=== PATIENT | male | born 1960 | race Caucasian/White ===

== ENCOUNTER → 2017-02-03 | Outpatient (CLI) | payer MEDICARE, OTHER ==
--- NOTE | 2017-02-04 09:09 | MR ---
EXAMINATION TYPE: MR brain wo/w con DATE OF EXAM: 02/03/2017 9:11 PM COMPARISON: NONE HISTORY: Seizure, dizziness CONTRAST: Patient received 20 mL intravenous MultiHance gadolinium contrast. Multiplanar and multispin-echo imaging of the brain was performed . Pre and post contrast enhanced i mages are obtained. The ventricles, basal cisterns and sulci overlying the cerebral convexities are mildly enlarged. There is evidence of mild periventricular white matter ischemic demyelination. Remote deep white matter insults are also noted. Focal nonspecific white matter lesion subcortical hi gh left frontal lobe measures 1.1 cm. No additional white matter lesions seen with certainty. No acut e edema is seen on diffusion weighted imaging. There is no evidence for midline shift or mass effect. Acute intracranial hemorrhage or extra-axial collection is not evident. No enhancing lesions are seen. Mild chronic ethmoidal sinusitis. Hyperintense lesion in the right-sided mastoid air cells on T1 and T2-weighted imaging which appears to not enhance on postcontrast enhanced images and measures 1.7 cm. This lesion is nonspecific and further evaluation with resolution temporal CT is advised. Graft ther e is a hyperintense lesion of the left parotid gland measuring 2.1 cm which is partially imaged. Taco tional smaller lesion of the right parotid gland. CT of the neck is advised. IMPRESSION: 1. Age-related atrophic and chronic small vessel ischemic change. No acute intracranial process at this time. No enhancing lesions are seen. 2. Nonspecific partially imaged parotid lesions. The contrast-enhanced CT of the neck is advised. 3. Focal lesion right-sided mastoid air cells may reflect changes of mastoiditis. Cholesteatoma not e xcluded. High-resolution CT of the temporal bones is advised.
== END | disposition home or self-care (01) ==
LOC: RADMRIMAIN 20:30
PROVIDERS: ATTEND Psychiatry & Neurology Neurology
DX: G31.9 Degenerative disease of nervous system, unspecified (principal); I67.82 Cerebral ischemia; G40.909 Epilepsy, unspecified, not intractable, without status epilepticus
CPT/HCPCS: 70553; A9577

== ENCOUNTER → 2017-03-01 | Outpatient (CLI) | payer MEDICARE, OTHER ==
[2017-03-01 13:40] LABS: Blood Urea Nitrogen 31 mg/dL (9-20); Non-African American GFR(MDRD) >60 (>60 ml/min/1.73 sqM)
--- NOTE | 2017-03-01 14:24 | CT ---
EXAMINATION TYPE: CT neck chest w con DATE OF EXAM: 03/01/2017 COMPARISON: NONE HISTORY: Family history of lung CA, pt is a smoker parotid lesion partially imaged on the left CT DLP: 1072.6 mGycm CONTRAST: CT scan of the neck is performed with IV Contrast, patient injected with 100 mL of Omnipaque 300. Contrast enhanced CT of the neck was performed from the skull base through the lung apices. AIRWAY: The supraglottic, glottic, and subglottic portions of the airway appear patent and free of mass. SALIVARY GLANDS: Within the superficial lobe of the left parotid gland there is a predominantly cysti c although a minimally solid mass of the left parotid gland. No additional parotid lesions are seen. Differential diagnostic possibilities: Pleomorphic adenoma as well as malignant lesions of the paroti d gland. Tissue diagnosis is recommended. The submandibular bones are unremarkable. THYROID GLAND: No nodules or masses seen. LYMPH NODES: No adenopathy seen greater than 1cm. LUNG APICES: No nodule or mass is seen. OTHER: Vascular structures are patent. No significant degenerative change of the cervical spine. N o abscess seen. IMPRESSION: 1. 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 EXAMINATION TYPE: CT neck chest w con DATE OF EXAM: 03/01/2017 COMPARISON: NONE HISTORY: Family history of lung CA, pt is a smoker CT DLP: 1072.6 mGycm Automated exposure control for dose reduction was used. CONTRAST: CT scan of the chest is performed with IV Contrast, patient injected with 100 mL of Omnipaque 300. FINDINGS: LUNGS: The lungs are grossly clear, there is no concerning parenchymal mass or nodule identified. T here is no pleural effusion or pneumothorax seen. The tracheobronchial tree is patent. MEDIASTINUM: There are no greater than 1 cm hilar or mediastinal lymph nodes. No pericardial effusi on is seen. Thoracic aorta is of normal caliber. The heart is not enlarged. UPPER ABDOMEN: No significant abnormality appreciated. OTHER: Bilateral gynecomastia. IMPRESSION: 1. No distinct abnormality of the chest.
--- NOTE | 2017-03-01 14:34 | CT ---
EXAMINATION TYPE: CT iac w con DATE OF EXAM: 03/01/2017 COMPARISON: Previous CT scan of the brain dated 07/06/2012. HISTORY: Hearing loss CT DLP: 150 mGycm Automated exposure control for dose reduction was used. CONTRAST: CT scan of the IACs is performed with IV Contrast, patient injected with 100 mL of Omnipaque 300. FINDINGS: Visualized intracranial structures are normal. There is no evidence of an enhancing CP angl e mass lesion or intracanalicular acoustic schwannoma. There is no widening of the porus acoustic thi s on either side. Middle and inner ear structures are normal bilaterally the ossicles are intact. Bot h scuta are sharp. There is no soft tissue in the aditus ad antrum. Visualized portions of the paranasal sinuses are clear. There is fluid in the mastoid air cells bilat erally, greater on the right than the left. There appears to be some destruction of the mastoid air c ells on the right. IMPRESSION: BILATERAL MASTOIDITIS WORSE ON THE RIGHT THAN THE LEFT WITH SOME OSSEOUS DESTRUCTION ON THE RIGHT.
== END | disposition home or self-care (01) ==
LOC: RADCTMAIN 13:03
PROVIDERS: ATTEND Family Medicine
DX: D11.0 Benign neoplasm of parotid gland (principal); H70.93 Unspecified mastoiditis, bilateral; Z80.1 Family history of malignant neoplasm of trachea, bronchus and lung
CPT/HCPCS: 82565; 84520; 70481; 70491; 71260; 36415; Q9967

== ENCOUNTER → 2017-04-13 | Outpatient (CLI) | payer MEDICARE, OTHER ==
--- NOTE | 2017-04-13 08:50 | CT ---
EXAMINATION TYPE: CT soft tissue neck wo con DATE OF EXAM: 04/13/2017 HISTORY: neck mass, prior abnormal CT. COMPARISON: CT neck and chest March 01, 2017 CT DLP: 610.9 mGycm. Automated Exposure Control for Dose Reduction was Utilized. TECHNIQUE: CT scan neck is performed without IV contrast. FINDINGS: Within the limitations of noncontrast study, following observations are made. Lack of IV co ntrast limits evaluation of mucosal findings and evaluation for neck adenopathy. Airway: No gross abnormality seen. Parotid/submandibular glands: At level of left parotid gland there is redemonstration of oval well-ci rcumscribed low dense lesion superficial anterior aspect measuring 1.9 x 1.7 cm on axial image 65 x 2 .3 cm in craniocaudal dimension on coronal image 31. Lesion is not significant change in size and kimberly earance from prior study. There are few scattered subcentimeter nodules redemonstrated felt to reflec t benign lymph nodes bilaterally in both parotid glands. No new suspicious solid or cystic mass is pr esent bilaterally. Carotid/Vascular Structures: There is mild to moderate calcified plaque in both carotid bulbs redemon strated. Osseous Structures: There is mild to moderate multilevel spurring in the visualized thoracic spine. Other: No greater than 1 cm neck adenopathy is clearly seen bilaterally. Artifact from cavitary filli ngs is noted. IMPRESSION: Stable 2.3 cm left parotid mass in which neoplasm cannot be excluded favor pleomorphic ad enoma or other benign etiology. No significant change from prior. Imaging guided fine-needle aspirati on for tissue analysis can be performed if desired.
== END | disposition home or self-care (01) ==
LOC: RADCTMAIN 07:06
PROVIDERS: ATTEND Otolaryngology
DX: K11.8 Other diseases of salivary glands (principal)
CPT/HCPCS: 70490

== ENCOUNTER 2017-04-28 08:28 | Emergency (ER) | payer MEDICARE, OTHER ==
[2017-04-28] MEDS ORDERED: SODIUM CHLORIDE 0.9% 1,000 ML IV ONE (09:06)
[2017-04-28] MEDS ORDERED: MECLIZINE 12.5 MG TAB PO STA (09:06)
[2017-04-28] MEDS ORDERED: SODIUM CHLORIDE 0.9% 1,000 ML IV SCH (09:15)
--- NOTE | 2017-04-28 09:17 | ED ---
Dizziness HPI - General Chief Complaint: Dizziness Stated Complaint: Dizziness Time Seen by Provider: 04/28/17 08:35 Source: patient, EMS, RN notes reviewed, old records reviewed Mode of arrival: EMS Limitations: no limitations - History of Present Illness Initial Comments: This is a 56-year-old male presenting to the emergency Department chief complaining of increased dizziness for the past 2 days. Patient reports he feels like the room is spinning. He reports he was recently diagnosed with mastoiditis and is currently on Augmentin and steroids. He also has a left sided parotid mass which is going to be biopsied soon. Patient reports that he is supposed to start radiation as they believe this is a cancerous tumor. Patient denies any recent fever or chills. He is a smoker and has had an increased cough. Denies any nausea or vomiting or abdominal pain. Denies any chest pain. Patient reports that the dizziness is worse with certain positions. - Related Data Home Medications Medication Instructions Recorded Confirmed Albuterol Inhaler [Ventolin Hfa 1 - 2 puff INHALATION RT-Q4H PRN 04/28/17 Inhaler] Amoxicillin/Potassium Clav 1 tab PO Q12HR 04/28/17 04/28/17 [Augmentin 875-125 Tablet] Diphenoxylate HCl/Atropine 1 tab PO Q8H PRN 04/28/17 04/28/17 [Lomotil 2.5-0.025 mg Tablet] Divalproex ER [Depakote ER] 1,000 mg PO DAILY 04/28/17 04/28/17 Divalproex ER [Depakote ER] 1,500 mg PO HS 04/28/17 04/28/17 FLUoxetine HCL [PROzac] 40 mg PO DAILY 04/28/17 04/28/17 Famotidine [Pepcid] 20 mg PO DAILY 04/28/17 04/28/17 Furosemide [Lasix] 40 mg PO DAILY 04/28/17 04/28/17 Ibuprofen [Motrin] 800 mg PO Q8H PRN 04/28/17 04/28/17 Insulin Glargine [Lantus] 45 unit SQ HS 04/28/17 04/28/17 Lisinopril [Zestril] 10 mg PO DAILY 04/28/17 04/28/17 Metoclopramide [Reglan] 10 mg PO TID PRN 04/28/17 04/28/17 Pioglitazone [Actos] 45 mg PO DAILY 04/28/17 04/28/17 Potassium Chloride ER [K-Dur 20] 20 meq PO DAILY 04/28/17 04/28/17 Ziprasidone HCl [Geodon] 40 mg PO BID 04/28/17 04/28/17 metFORMIN HCL [Glucophage] 1,000 mg PO BID 04/28/17 04/28/17 methylPREDNISolone [Medrol Dose See Taper PO DIRECTED 04/28/17 04/28/17 Pack] Previous Rx's Medication Instructions Recorded Diazepam [Valium] 5 mg PO TID #15 tab 04/28/17 Meclizine HCl 12.5 mg PO TID #20 tab 04/28/17 Allergies Allergy/AdvReac Type Severity Reaction Status Date / Time codeine AdvReac Swelling Verified 04/28/17 08:48 morphine AdvReac Swelling Verified 04/28/17 08:48 Penicillins AdvReac Swelling Verified 04/28/17 08:48 Review of Systems ROS Statement: Those systems with pertinent positive or pertinent negative responses have been documented in the HPI. ROS Other: All systems not noted in ROS Statement are negative. Past Medical History Past Medical History: Seizure Disorder History of Any Multi-Drug Resistant Organisms: MRSA Date of last positivie culture/infection: 2014 MDRO Source:: Sore on leg Past Surgical History: Orthopedic Surgery Past Psychological History: Depression Smoking Status: Current every day smoker Past Alcohol Use History: None Reported Past Drug Use History: None Reported General Exam - General Exam Comments Initial Comments: This is a 56-year-old male. Patient does not appear to be in any acute distress. Limitations: no limitations General appearance: alert, in no apparent distress Head exam: Present: atraumatic, normocephalic, normal inspection Eye exam: Present: normal appearance, nystagmus (Patient does have some horizontal nystagmus with left lateral gaze.) ENT exam: Present: normal exam, normal oropharynx, mucous membranes moist Neck exam: Present: normal inspection. Absent: tenderness, meningismus, lymphadenopathy Respiratory exam: Present: normal lung sounds bilaterally. Absent: respiratory distress, wheezes, rales, rhonchi, stridor Cardiovascular Exam: Present: regular rate, normal rhythm, normal heart sounds. Absent: systolic murmur, diastolic murmur, rubs, gallop, clicks GI/Abdominal exam: Present: soft, normal bowel sounds. Absent: distended, tenderness, guarding, rebound, rigid Extremities exam: Present: normal inspection, full ROM, normal capillary refill. Absent: tenderness, pedal edema, joint swelling, calf tenderness Back exam: Present: normal inspection Neurological exam: Present: alert, oriented X3, CN II-XII intact Expanded Patient oriented to: Present: person, place, time Speech: Present: fluid speech Cranial nerves: EOM's Intact: Normal, Gag Reflex: Normal, Nystagmus: Abnormal Left, Facial Sensation: Normal Cerebellar function: Finger to Nose: Normal Upper motor neuron: Pronator Drift: Normal Sensory exam: Upper Extremity Light Touch: Normal, Lower Extremity Light Touch: Normal Motor strength exam: RUE: 5, LUE: 5, RLE: 5, LLE: 5 Eye Response: (4) open spontaneously Motor Response: (6) obeys commands Verbal Response: (5) oriented [place] Total: 15 Psychiatric exam: Present: normal affect, normal mood Skin exam: Present: warm, dry, intact, normal color. Absent: rash Course Vital Signs 04/28/17 04/28/17 04/28/17 08:30 10:48 10:50 Temperature 98.2 F 97.8 F Pulse Rate 66 69 67 Respiratory 17 17 Rate Blood Pressure 145/72 121/64 O2 Sat by Pulse 97 97 Oximetry 04/28/17 04/28/17 10:59 12:15 Temperature 97.6 F Pulse Rate 71 79 Respiratory 18 Rate Blood Pressure 135/73 O2 Sat by Pulse 94 L Oximetry Medical Decision Making - Medical Decision Making This is a 56-year-old male presenting to the emergency Department chief complaining of increased dizziness for the past 2 days. Patient reports he feels like the room is spinning. He reports he was recently diagnosed with mastoiditis and is currently on Augmentin and steroids. Patient lab work was reviewed and negative for no significant abnormalities. Physical exam does show some mild nystagmus with left lateral gaze. Patient has recently had Brain MRI, and CT scan 12 days ago. Discussed with Dr. Bowman. Patient given meclizine and valium. He reports that his dizziness is somewhat diminishing. Discussed that patient needs to follow up with PCP and ENT specialist, especially due to history of mastoiditis and the left parotid tumor. Patient will be discharged with valium and meclinzine. Patient understands return parameters. - Lab Data Result diagrams: 04/28/17 09:12 04/28/17 09:12 Lab Results 04/28/17 04/28/17 04/28/17 Range/Units 09:12 09:12 09:12 WBC 6.3 (3.8-10.6) k/uL RBC 4.03 L (4.30-5.90) m/uL Hgb 13.6 (13.0-17.5) gm/dL Hct 41.5 (39.0-53.0) % MCV 102.9 H (80.0-100.0) fL MCH 33.7 (25.0-35.0) pg MCHC 32.7 (31.0-37.0) g/dL RDW 14.9 (11.5-15.5) % Plt Count 179 (150-450) k/uL Neutrophils % 69 % Lymphocytes % 22 % Monocytes % 5 % Eosinophils % 2 % Basophils % 1 % Neutrophils # 4.3 (1.3-7.7) k/uL Lymphocytes # 1.4 (1.0-4.8) k/uL Monocytes # 0.3 (0-1.0) k/uL Eosinophils # 0.1 (0-0.7) k/uL Basophils # 0.1 (0-0.2) k/uL Macrocytosis Slight PT 10.7 (9.0-12.0) sec INR 1.1 (<1.2) APTT 25.2 (22.0-30.0) sec Sodium 140 (137-145) mmol/L Potassium 4.6 (3.5-5.1) mmol/L Chloride 107 (98-107) mmol/L Carbon Dioxide 25 (22-30) mmol/L Anion Gap 8 mmol/L BUN 29 H (9-20) mg/dL Creatinine 0.88 (0.66-1.25) mg/dL Est GFR (MDRD) Af Amer >60 (>60 ml/min/1.73 sqM) Est GFR (MDRD) Non-Af >60 (>60 ml/min/1.73 sqM) Glucose 83 (74-99) mg/dL Calcium 8.9 (8.4-10.2) mg/dL Total Bilirubin 0.4 (0.2-1.3) mg/dL AST 18 (17-59) U/L ALT 21 (21-72) U/L Alkaline Phosphatase 87 (38-126) U/L Total Protein 6.6 (6.3-8.2) g/dL Albumin 3.5 (3.5-5.0) g/dL Urine Color Urine Appearance (Clear) Urine pH (5.0-8.0) Ur Specific [place] (1.001-1.035) Urine Protein (Negative) Urine Glucose (UA) (Negative) Urine Ketones (Negative) Urine Blood (Negative) Urine Nitrite (Negative) Urine Bilirubin (Negative) Urine Urobilinogen (<2.0) mg/dL Ur Leukocyte Esterase (Negative) 04/28/17 Range/Units 09:12 WBC (3.8-10.6) k/uL RBC (4.30-5.90) m/uL Hgb (13.0-17.5) gm/dL Hct (39.0-53.0) % MCV (80.0-100.0) fL MCH (25.0-35.0) pg MCHC (31.0-37.0) g/dL RDW (11.5-15.5) % Plt Count (150-450) k/uL Neutrophils % % Lymphocytes % % Monocytes % % Eosinophils % % Basophils % % Neutrophils # (1.3-7.7) k/uL Lymphocytes # (1.0-4.8) k/uL Monocytes # (0-1.0) k/uL Eosinophils # (0-0.7) k/uL Basophils # (0-0.2) k/uL Macrocytosis PT (9.0-12.0) sec INR (<1.2) APTT (22.0-30.0) sec Sodium (137-145) mmol/L Potassium (3.5-5.1) mmol/L Chloride (98-107) mmol/L Carbon Dioxide (22-30) mmol/L Anion Gap mmol/L BUN (9-20) mg/dL Creatinine (0.66-1.25) mg/dL Est GFR (MDRD) Af Amer (>60 ml/min/1.73 sqM) Est GFR (MDRD) Non-Af (>60 ml/min/1.73 sqM) Glucose (74-99) mg/dL Calcium (8.4-10.2) mg/dL Total Bilirubin (0.2-1.3) mg/dL AST (17-59) U/L ALT (21-72) U/L Alkaline Phosphatase (38-126) U/L Total Protein (6.3-8.2) g/dL Albumin (3.5-5.0) g/dL Urine Color Light Yellow Urine Appearance Clear (Clear) Urine pH 5.5 (5.0-8.0) Ur Specific [place] 1.006 (1.001-1.035) Urine Protein Negative (Negative) Urine Glucose (UA) Negative (Negative) Urine Ketones Negative (Negative) Urine Blood Negative (Negative) Urine Nitrite Negative (Negative) Urine Bilirubin Negative (Negative) Urine Urobilinogen <2.0 (<2.0) mg/dL Ur Leukocyte Esterase Negative (Negative) - Radiology Data Radiology results: report reviewed Chest x-ray shows no acute cardio pulmonary process. Cardiomegaly suggestive of degree of underlying pulmonary emphysema. Disposition Clinical Impression: Vertigo Disposition: HOME SELF-CARE Condition: Good Instructions: Vertigo (ED) Additional Instructions: Patient is a follow-up with her ENT specialist on Monday. Return to the emergency department if any alarming signs or symptoms occur. Patient is to continue to take antibiotics and her steroids as previously prescribed. Prescriptions: Diazepam [Valium] 5 mg PO TID #15 tab Meclizine HCl 12.5 mg PO TID #20 tab Referrals: Nonstaff,Physician [REFERRING] - 1-2 days Chava Giles DO [REFERRING] - 1-2 days Time of Disposition: 11:43
[2017-04-28 09:21] LABS: Appearance,Urine Clear (Clear); Bilirubin,Urine Negative (Negative); Glucose,Urine (UA) Negative (Negative); Ketones,Urine Negative (Negative); Leukocyte Esterase,Urine Negative (Negative); Nitrite,Urine Negative (Negative); PH, Urine 5.5 (5.0-8.0); Protein,Urine Negative (Negative); Specific Gravity,Urine 1.006 (1.001-1.035); UA Billing (MACRO vs. MICRO) CHEM; Urobilinogen,Urine <2.0 mg/dL (<2.0)
[2017-04-28 09:24] LABS: Basophils # (A) 0.1 k/uL (0-0.2); Basophils % (A) 1 %; CH 34.1; CHCM 33.4; Eosinophils # (A) 0.1 k/uL (0-0.7); Eosinophils % (A) 2 %; HCT 41.5 % (39.0-53.0); HDW 2.23; HGB 13.6 gm/dL (13.0-17.5); Luc # (Auto) 0.11; Luc % (Auto) 2; Lymphocytes # (A) 1.4 k/uL (1.0-4.8); Lymphocytes % (A) 22 %; MCH 33.7 pg (25.0-35.0); MCHC 32.7 g/dL (31.0-37.0); MCV 102.9 fL (80.0-100.0); Macrocytosis Slight; Mean Platelet Volume 7.4; Monocytes # (A) 0.3 k/uL (0-1.0); Monocytes % (A) 5 %; Neutrophils # (A) 4.3 k/uL (1.3-7.7); Neutrophils % (A) 69 %; RBC 4.03 m/uL (4.30-5.90); RDW 14.9 % (11.5-15.5); WBC 6.3 k/uL (3.8-10.6); WBC (Perox) 6.68
[2017-04-28 09:36] LABS: INR 1.1 (<1.2); Partial Thromboplastin Time 25.2 sec (22.0-30.0); Prothrombin Time 10.7 sec (9.0-12.0)
[2017-04-28 09:46] LABS: ALT 21 U/L (21-72); AST 18 U/L (17-59); Alkaline Phosphatase 87 U/L (38-126); Anion Gap 8 mmol/L; Blood Urea Nitrogen 29 mg/dL (9-20); Calcium 8.9 mg/dL (8.4-10.2); Carbon Dioxide 25 mmol/L (22-30); Chloride 107 mmol/L (98-107); Glucose 83 mg/dL (74-99); Non-African American GFR(MDRD) >60 (>60 ml/min/1.73 sqM); Potassium 4.6 mmol/L (3.5-5.1); Sodium 140 mmol/L (137-145); Total Bilirubin 0.4 mg/dL (0.2-1.3); Total Protein 6.6 g/dL (6.3-8.2)
--- NOTE | 2017-04-28 09:47 | XR ---
EXAMINATION TYPE: XR chest 2V DATE OF EXAM: 04/28/2017 COMPARISON: 01/14/2013 HISTORY: Dizziness, multiple recent seizures with history of brain tumor. TECHNIQUE: Frontal and lateral views of the chest are obtained. FINDINGS: There is no focal air space opacity, pleural effusion, or pneumothorax seen. The cardiac silhouette size is enlarged. The osseous structures are intact. Degenerative changes are appreciate d of the thoracic spine. There is some flattening of the diaphragms on the lateral image and increase d anterior posterior diameter of the chest, which may relate to degree of pulmonary emphysema. IMPRESSION: 1. No acute cardiopulmonary process. 2. Cardiomegaly and findings that suggest a degree of underlying pulmonary emphysema.
[2017-04-28] MEDS ORDERED: IPRATROPIUM-ALBUTEROL 3 ML NEB INHALATION STA (10:17)
[2017-04-28] MEDS ORDERED: DIAZEPAM 5 MG/ML 2 ML SYRINGE IVP STA (10:51)
[2017-04-28 12:19] VITALS: BP 135/73; PULSE 79; RESP 18; TEMP 97.6
== END 2017-04-28 12:20 | disposition home or self-care (01) ==
LOC: EC 08:28
DX: R42 Dizziness and giddiness (principal); Z88.5 Allergy status to narcotic agent; Z88.0 Allergy status to penicillin; G40.909 Epilepsy, unspecified, not intractable, without status epilepticus; F32.9 Major depressive disorder, single episode, unspecified; F17.200 Nicotine dependence, unspecified, uncomplicated; Z79.4 Long term (current) use of insulin; Z79.84 Long term (current) use of oral hypoglycemic drugs; Z79.899 Other long term (current) drug therapy
CPT/HCPCS: 36415; 94640; 80053; 85025; 85610; 85730; 81003; 71020; 99285; 96374; 96361 ×3; J3360

== ENCOUNTER 2017-05-25 15:32 | Observation (INO) | payer MEDICARE, OTHER ==
[2017-05-25] MEDS ORDERED: SODIUM CHLORIDE 0.9% 1,000 ML IV STA ×2 (16:18)
--- NOTE | 2017-05-25 16:21 | ED ---
General Adult HPI - General Source: patient, RN notes reviewed Mode of arrival: ambulatory Limitations: no limitations <Iban Richardson - Last Filed: 05/25/17 19:59> <Marck Clarke - Last Filed: 05/26/17 00:23> - General Chief complaint: Nausea/Vomiting/Diarrhea Stated complaint: kidney problems-sent by Time Seen by Provider: 05/25/17 16:06 - History of Present Illness Initial comments: Patient 56-year-old male who presents emergency room today with a chief complaint of dizziness for last several months. Does not that he was at his neurologist or today was told that his kidney function was elevated to come here to the emergency room. He states he's been using medication for the vertigo with little relief. He states today began having some abdominal discomfort. He states is located mostly on the left side. Patient was not feeling nauseated at times. He denies any other complaints or associated symptoms currently. Patient denies any recent fever, chills, shortness of breath, chest pain, back pain, vomiting, numbness or tingling, dysuria or hematuria, constipation or diarrhea, headaches or visual changes, or any other complaints. (Iban Richardson) - Related Data Home Medications Medication Instructions Recorded Confirmed Albuterol Inhaler [Ventolin Hfa 1 - 2 puff INHALATION RT-Q4H PRN 04/28/17 Inhaler] Diphenoxylate HCl/Atropine 1 tab PO Q8H PRN 04/28/17 05/25/17 [Lomotil 2.5-0.025 mg Tablet] Divalproex ER [Depakote ER] 1,000 mg PO DAILY 04/28/17 05/25/17 Divalproex ER [Depakote ER] 1,500 mg PO HS 04/28/17 05/25/17 FLUoxetine HCL [PROzac] 40 mg PO DAILY 04/28/17 05/25/17 Famotidine [Pepcid] 20 mg PO DAILY 04/28/17 05/25/17 Furosemide [Lasix] 40 mg PO DAILY 04/28/17 05/25/17 Insulin Glargine [Lantus] 45 unit SQ HS 04/28/17 05/25/17 Lisinopril [Zestril] 10 mg PO DAILY 04/28/17 05/25/17 Metoclopramide [Reglan] 10 mg PO TID PRN 04/28/17 05/25/17 Pioglitazone [Actos] 45 mg PO DAILY 04/28/17 05/25/17 Potassium Chloride ER [K-Dur 20] 20 meq PO DAILY 04/28/17 05/25/17 Ziprasidone HCl [Geodon] 40 mg PO BID 04/28/17 05/25/17 metFORMIN HCL [Glucophage] 1,000 mg PO BID 04/28/17 05/25/17 Acetaminophen Tab [Tylenol Tab] 1,000 mg PO Q6HR PRN 05/25/17 05/25/17 Meclizine [Antivert] 25 mg PO BID 05/25/17 05/25/17 Tiotropium 18 Mcg/Puff [Spiriva] 1 cap INHALATION RT-DAILY 05/25/17 05/25/17 Allergies Allergy/AdvReac Type Severity Reaction Status Date / Time codeine AdvReac Swelling Verified 05/25/17 16:30 morphine AdvReac Swelling Verified 05/25/17 16:30 Penicillins AdvReac Swelling Verified 05/25/17 16:30 Review of Systems ROS Other: All systems not noted in ROS Statement are negative. <Iban Richardson - Last Filed: 05/25/17 19:59> ROS Other: All systems not noted in ROS Statement are negative. <Marck Clarke - Last Filed: 05/26/17 00:23> ROS Statement: Those systems with pertinent positive or pertinent negative responses have been documented in the HPI. Past Medical History Past Medical History: Diabetes Mellitus, GERD/Reflux, Seizure Disorder History of Any Multi-Drug Resistant Organisms: MRSA Date of last positivie culture/infection: 2014 MDRO Source:: Sore on leg Past Surgical History: Appendectomy, Cholecystectomy, Orthopedic Surgery Past Psychological History: Depression Smoking Status: Current every day smoker Past Alcohol Use History: None Reported Past Drug Use History: None Reported <Iban Richardson - Last Filed: 05/25/17 19:59> General Exam Limitations: no limitations <Iban Richardson - Last Filed: 05/25/17 19:59> <Marck Clarke - Last Filed: 05/26/17 00:23> - General Exam Comments Initial Comments: General: The patient is awake and alert, in no distress, and does not appear acutely ill. Eye: Pupils are equal, round and reactive to light, extra-ocular movements are intact. No nystagmus. There is normal conjunctiva bilaterally. No signs of icterus. Ears, nose, mouth and throat: There are moist mucous membranes and no oral lesions. Neck: The neck is supple, there is no tenderness or JVD. Cardiovascular: There is a regular rate and rhythm. No murmur, rub or gallop is appreciated. Respiratory: Lungs are clear to auscultation, respirations are non-labored, breath sounds are equal. No wheezes, stridor, rales, or rhonchi. Gastrointestinal: Normal appearance them appear normal bowel sounds. Soft on palpation. Patient does have tenderness to the left lower and upper quadrants. No rebound or guarding. Musculoskeletal: Normal ROM, no tenderness. Strength 5/5. Sensation intact. Pulses equal bilaterally 2+. Neurological: A&O x 3. CN II-XII intact, There are no obvious motor or sensory deficits. Coordination appears grossly intact. Speech is normal. Skin: Skin is warm and dry and no rashes or lesions are noted. Psychiatric: Cooperative, appropriate mood & affect, normal judgment. (Iban Richardson) Course <Iban Richardson - Last Filed: 05/25/17 19:59> <Marck Clarke - Last Filed: 05/26/17 00:23> Vital Signs 05/25/17 05/25/17 05/25/17 15:54 17:43 18:51 Temperature 98.1 F Pulse Rate 75 74 67 Respiratory 18 17 17 Rate Blood Pressure 101/59 115/60 111/53 O2 Sat by Pulse 97 95 96 Oximetry 05/25/17 05/25/17 05/25/17 20:20 21:29 22:52 Temperature Pulse Rate 84 74 67 Respiratory 18 18 18 Rate Blood Pressure 156/67 123/59 133/66 O2 Sat by Pulse 97 97 97 Oximetry 05/26/17 00:07 Temperature Pulse Rate 70 Respiratory 18 Rate Blood Pressure 144/95 O2 Sat by Pulse 95 Oximetry - Reevaluation(s) Reevaluation #1: 05/25/17 19:[address] has been reviewed. Does show possible lateral with obstruction. Patient is able to void here in the emergency room. Patient's bladder scan shows greater than a liter. He did void again and has 886 mL. Full catheter replaced by nursing staff. At this time Case discussed ans signed out to attending DR Clarke. (Iban Richardson) EKG Findings - EKG Comments: EKG Findings:: EKG performed at 1644: A 12-lead EKG was performed and interpreted by me as showing the following: Rate is 72, and rhythm is normal sinus. There are normal QRS complexes and normal R-wave progression. ST segments have no elevation or depression, and LA segments appear normal. <Iban Richardson - Last Filed: 05/25/17 19:59> Medical Decision Making - Lab Data Result diagrams: 05/25/17 16:35 05/25/17 16:35 <Iban Richardson - Last Filed: 05/25/17 19:59> - Lab Data Result diagrams: 05/25/17 16:35 05/25/17 16:35 <Marck Clarke - Last Filed: 05/26/17 00:23> - Medical Decision Making Labs show a white count 7.7 hemoglobin 13 hematocrit 41.9. INR 1.0. Potassium 4.4 BUN of 34 creatinine 1.1 GFR greater than 60. Pulse 78. Urine clean no signs of infection or blood. While in emergency room the patient had a tender abdomen. The CAT scan was done that suggested possibility of urinary bladder outlet obstruction. The patient voided approximately 800 mL's. He then had a bladder scan which showed approximately 1 L remaining. A Ogden catheter was placed 500 was allowed out catheter was then clamped. 5 minutes later was opened again more clear urine and started to have bloody urine. No pain. Discussed the case with Dr. Oakes her. Patient be admitted for observation for the evening with urology consultation. (Marck Clarke) - Lab Data Lab Results 05/25/17 05/25/17 05/25/17 Range/Units 16:35 16:35 16:35 WBC 7.7 (3.8-10.6) k/uL RBC 4.14 L (4.30-5.90) m/uL Hgb 13.8 (13.0-17.5) gm/dL Hct 41.9 (39.0-53.0) % MCV 101.3 H (80.0-100.0) fL MCH 33.4 (25.0-35.0) pg MCHC 33.0 (31.0-37.0) g/dL RDW 14.7 (11.5-15.5) % Plt Count 213 (150-450) k/uL Neutrophils % 48 % Lymphocytes % 41 % Monocytes % 6 % Eosinophils % 2 % Basophils % 1 % Neutrophils # 3.7 (1.3-7.7) k/uL Lymphocytes # 3.2 (1.0-4.8) k/uL Monocytes # 0.5 (0-1.0) k/uL Eosinophils # 0.2 (0-0.7) k/uL Basophils # 0.1 (0-0.2) k/uL Macrocytosis Slight PT 10.5 (9.0-12.0) sec INR 1.0 (<1.2) APTT 25.0 (22.0-30.0) sec Sodium 136 L (137-145) mmol/L Potassium 4.4 (3.5-5.1) mmol/L Chloride 99 (98-107) mmol/L Carbon Dioxide 30 (22-30) mmol/L Anion Gap 7 mmol/L BUN 34 H (9-20) mg/dL Creatinine 1.10 (0.66-1.25) mg/dL Est GFR (MDRD) Af Amer >60 (>60 ml/min/1.73 sqM) Est GFR (MDRD) Non-Af >60 (>60 ml/min/1.73 sqM) Glucose 78 (74-99) mg/dL POC Glucose (mg/dL) (75-99) mg/dL POC Glu Color Tester ID Calcium 8.9 (8.4-10.2) mg/dL Total Bilirubin 0.4 (0.2-1.3) mg/dL AST 26 (17-59) U/L ALT 30 (21-72) U/L Alkaline Phosphatase 89 (38-126) U/L Total Protein 6.5 (6.3-8.2) g/dL Albumin 3.6 (3.5-5.0) g/dL Lipase 58 (23-300) U/L Urine Color Urine Appearance (Clear) Urine pH (5.0-8.0) Ur Specific [place] (1.001-1.035) Urine Protein (Negative) Urine Glucose (UA) (Negative) Urine Ketones (Negative) Urine Blood (Negative) Urine Nitrite (Negative) Urine Bilirubin (Negative) Urine Urobilinogen (<2.0) mg/dL Ur Leukocyte Esterase (Negative) 05/25/17 05/25/17 Range/Units 19:16 21:59 WBC (3.8-10.6) k/uL RBC (4.30-5.90) m/uL Hgb (13.0-17.5) gm/dL Hct (39.0-53.0) % MCV (80.0-100.0) fL MCH (25.0-35.0) pg MCHC (31.0-37.0) g/dL RDW (11.5-15.5) % Plt Count (150-450) k/uL Neutrophils % % Lymphocytes % % Monocytes % % Eosinophils % % Basophils % % Neutrophils # (1.3-7.7) k/uL Lymphocytes # (1.0-4.8) k/uL Monocytes # (0-1.0) k/uL Eosinophils # (0-0.7) k/uL Basophils # (0-0.2) k/uL Macrocytosis PT (9.0-12.0) sec INR (<1.2) APTT (22.0-30.0) sec Sodium (137-145) mmol/L Potassium (3.5-5.1) mmol/L Chloride (98-107) mmol/L Carbon Dioxide (22-30) mmol/L Anion Gap mmol/L BUN (9-20) mg/dL Creatinine (0.66-1.25) mg/dL Est GFR (MDRD) Af Amer (>60 ml/min/1.73 sqM) Est GFR (MDRD) Non-Af (>60 ml/min/1.73 sqM) Glucose (74-99) mg/dL POC Glucose (mg/dL) 87 (75-99) mg/dL POC Glu Color Tester ID Eva Pastor Calcium (8.4-10.2) mg/dL Total Bilirubin (0.2-1.3) mg/dL AST (17-59) U/L ALT (21-72) U/L Alkaline Phosphatase (38-126) U/L Total Protein (6.3-8.2) g/dL Albumin (3.5-5.0) g/dL Lipase (23-300) U/L Urine Color Yellow Urine Appearance Clear (Clear) Urine pH 6.5 (5.0-8.0) Ur Specific [place] 1.016 (1.001-1.035) Urine Protein Negative (Negative) Urine Glucose (UA) Negative (Negative) Urine Ketones Negative (Negative) Urine Blood Negative (Negative) Urine Nitrite Negative (Negative) Urine Bilirubin Negative (Negative) Urine Urobilinogen <2.0 (<2.0) mg/dL Ur Leukocyte Esterase Negative (Negative) Disposition <Iban Richardson - Last Filed: 05/25/17 19:59> <Marck Clarke - Last Filed: 05/26/17 00:23> Clinical Impression: Vertigo, constant, Urinary retention, Hematuria Disposition: ADMITTED IP TO THIS HOSP Condition: Fair Referrals: Marck Bartholomew DO [Primary Care Provider] - 1-2 days
[2017-05-25 16:46] LABS: Basophils # (A) 0.1 k/uL (0-0.2); Basophils % (A) 1 %; CHCM 33.8; Eosinophils # (A) 0.2 k/uL (0-0.7); Eosinophils % (A) 2 %; HCT 41.9 % (39.0-53.0); HGB 13.8 gm/dL (13.0-17.5); Luc # (Auto) 0.14; Luc % (Auto) 2; Lymphocytes # (A) 3.2 k/uL (1.0-4.8); Lymphocytes % (A) 41 %; MCH 33.4 pg (25.0-35.0); MCV 101.3 fL (80.0-100.0); Macrocytosis Slight; Mean Platelet Volume 7.1; Monocytes # (A) 0.5 k/uL (0-1.0); Monocytes % (A) 6 %; Neutrophils # (A) 3.7 k/uL (1.3-7.7); Neutrophils % (A) 48 %; RBC 4.14 m/uL (4.30-5.90); RDW 14.7 % (11.5-15.5); WBC 7.7 k/uL (3.8-10.6); WBC (Perox) 8.01
[2017-05-25 16:58] LABS: Prothrombin Time 10.5 sec (9.0-12.0)
[2017-05-25 17:08] LABS: ALT 30 U/L (21-72); AST 26 U/L (17-59); Alkaline Phosphatase 89 U/L (38-126); Anion Gap 7 mmol/L; Blood Urea Nitrogen 34 mg/dL (9-20); Calcium 8.9 mg/dL (8.4-10.2); Carbon Dioxide 30 mmol/L (22-30); Chloride 99 mmol/L (98-107); Glucose 78 mg/dL (74-99); Non-African American GFR(MDRD) >60 (>60 ml/min/1.73 sqM); Potassium 4.4 mmol/L (3.5-5.1); Sodium 136 mmol/L (137-145); Total Bilirubin 0.4 mg/dL (0.2-1.3); Total Protein 6.5 g/dL (6.3-8.2)
[2017-05-25] MEDS ORDERED: RX INFO: IV CONTRAST WAS GIVEN 1 EACH MISC MISCELLANE PRN (17:23)
--- NOTE | 2017-05-25 18:40 | CT ---
EXAMINATION TYPE: CT abdomen pelvis w con DATE OF EXAM: 05/25/2017 COMPARISON: 12/13/2011 HISTORY: LLQ pain and abnormal labs CT DLP: 2557.4 mGycm Automated exposure control for dose reduction was used. TECHNIQUE: Helical acquisition of images was performed from the lung bases through the pelvis. CONTRAST: Performed without Oral Contrast and with IV Contrast, patient injected with 100 mL of Omnipaque 300. FINDINGS: Lung bases are clear of consolidation. There is no pleural effusion. Heart appears enlarged. There are clips from cholecystectomy. The common bile duct is large and measures 2 cm. Intrahepatic b ile ducts are mildly ectatic. There is no evidence of a splenic mass. Pancreas appears normal. There is no adrenal mass. Kidneys show satisfactory contrast opacification. There is no hydronephrosi s. There is very little contrast in the renal collecting systems on the delayed images. There is some high attenuation in the subcutaneous fat over the right mid abdomen that could be injec tion sites. I see no intestinal wall thickening. There are no dilated loops. Bladder is large. There is a 3 cm di verticulum on the posterior left side of the urinary bladder. There is no ascites. There is minimal p rostatic calcification. There are clips apparently from appendectomy. There is no retroperitoneal javier nopathy. Urinary bladder is large. There is also a 2 cm diverticulum on the dome of the urinary bladd er. I see no focal bone destruction. Bladder measures 18 cm in length. IMPRESSION: DILATED URINARY BLADDER WITH BLADDER DIVERTICULA. THIS COULD RELATE TO BLADDER OUTLET OBSTRUCTION. TH IS IS NEW COMPARED TO OLD EXAM. VERY LITTLE CONTRAST IN THE RENAL COLLECTING SYSTEMS. THE raises THE POSSIBILITY OF RENAL FAILURE. THERE IS ECTATIC COMMON BILE DUCT AND MILD ECTASIA OF THE INTRAHEPATIC BILE DUCTS THAT IS NEW COMPARE D TO OLD EXAM. NO OBSTRUCTING MASS IDENTIFIED. THE POSSIBILITY OF DISTAL COMMON BILE DUCT OBSTRUCTION CANNOT BE ENTIRELY EXCLUDED. MRCP MIGHT BE HELPFUL FOR FURTHER EVALUATION IF CLINICALLY INDICATED.
[2017-05-25 19:19] LABS: Appearance,Urine Clear (Clear); Bilirubin,Urine Negative (Negative); Glucose,Urine (UA) Negative (Negative); Ketones,Urine Negative (Negative); Leukocyte Esterase,Urine Negative (Negative); Nitrite,Urine Negative (Negative); PH, Urine 6.5 (5.0-8.0); Protein,Urine Negative (Negative); Specific Gravity,Urine 1.016 (1.001-1.035); UA Billing (MACRO vs. MICRO) CHEM; Urobilinogen,Urine <2.0 mg/dL (<2.0)
[2017-05-25 22:09] LABS: Glucose,Whole Blood 87 mg/dL (75-99)
[2017-05-26] MEDS ORDERED: NALOXONE 0.4 MG/ML 1 ML VIAL IV PRN (00:25)
[2017-05-26] MEDS ORDERED: METOCLOPRAMIDE 10 MG TAB PO PRN (00:28)
[2017-05-26] MEDS ORDERED: DIPHENOX-ATROP 2.5-0.025 MG 1 EACH TAB PO PRN (00:28)
[2017-05-26] MEDS ORDERED: IPRATROPIUM-ALBUTEROL 3 ML NEB INHALATION PRN (00:30)
[2017-05-26] MEDS: SODIUM CHLORIDE 0.9% 1,000 ML IV SCH ×2 (01:25→22:08)
[2017-05-26 06:58] LABS: Glucose,Whole Blood 81 mg/dL (75-99)
[2017-05-26] MEDS: metFORMIN 500 MG TAB PO SCH ×2 (07:21→17:26)
[2017-05-26] MEDS: ACETAMINOPHEN TAB 325 MG TAB PO PRN ×2 (08:44→22:07)
[2017-05-26] MEDS: DIVALPROEX ER 500 MG TAB.ER.24H PO SCH (08:45)
[2017-05-26] MEDS: FLUoxetine HCL 20 MG CAP PO SCH (08:45)
[2017-05-26] MEDS: FAMOTIDINE 20 MG TAB PO SCH (08:45)
[2017-05-26] MEDS: FUROSEMIDE 40 MG TAB PO SCH (08:45)
[2017-05-26] MEDS: ZIPRASIDONE 40 MG CAP PO SCH ×2 (08:46→23:02)
[2017-05-26] MEDS: POTASSIUM CHLORIDE ER 20 MEQ TAB.ER PO SCH (08:46)
[2017-05-26] MEDS: MECLIZINE 25 MG TAB PO SCH ×2 (08:46→22:07)
[2017-05-26] MEDS: LISINOPRIL 10 MG TAB PO SCH (08:46)
[2017-05-26] MEDS: PIOGLITAZONE 45 MG TAB PO SCH (08:46)
[2017-05-26] MEDS ORDERED: LORazepam 2 MG/ML INJ IV PRN (11:30)
--- NOTE | 2017-05-26 11:47 | P.HPIM ---
History of Present Illness H&P Date: 05/26/17 Chief Complaint: abdominal pain Mr. Humphries is a 56 years old male patient of Dr. with past medical history of diabetes for 15 years, GERD, hypertension, seizure disorder, CHF, vertigo who presented the ED with chief complaint of abdominal pain that started suddenly when he woke up in the morning. Patient said he was unable to urinate for 6 hours prior to the start of the abdominal pain. He denies any similar symptoms in the past. He was also complaining of dizziness for the past several months for which he sees a neurologist. Patient mentions he is being evaluated for a brain mass which is contributing to the vertigo and has been treated with meclizine. Patient endorses double vision and sweats but denies any change in bowel habits, hematemesis or melena. He endorses burning when he urinates and increased frequency prior to the presentation. Patient denies any fever, chills, shortness of breath, chest pain, back pain, vomiting, and loss of consciousness. Patient denies any weakness or numbness in her lowest extremities. In the ED, patient underwent a CT abdomen with suggestive bladder outlet obstruction. Patient underwent a bladder scan which suggested urinary retention of 1 L. Urinary catheter was placed and patient had bloody urine since the catheter has been placed.Patient denies hematuria prior to presentation. Urology was consulted and patient was admitted for further management. Review of Systems Constitutional: Reports night sweats, Denies chronic headaches, Denies fatigue, Denies fever, Denies lethargy, Denies malaise, Denies poor appetite, Denies weakness Eyes: bilateral diplopia, denies blurred vision, denies bulging eye, denies decreased vision, denies photophobia, denies loss of vision Ears: deny: decreased hearing Ears, nose, mouth and throat: Denies ant. neck pain, Denies epistaxis, Denies headache, Denies nasal congestion, Denies nose pain Cardiovascular: Denies chest pain, Denies decreased exercise tolerance, Denies dyspnea on exertion, Denies high blood pressure, Denies irregular heart beat, Denies palpitations, Denies syncope Respiratory: Denies cough, Denies wheezing Gastrointestinal: Reports abdominal pain, Denies BRBPR, Denies change in bowel habits, Denies coffee ground emesis, Denies constipation, Denies diarrhea, Denies early satiety, Denies hematemesis, Denies hematochezia, Denies melena Genitourinary: Reports dysuria, Reports hematuria, Reports urinary frequency, Reports urinary hesitancy, Reports urinary retention, Denies flank pain, Denies incontinence, Denies nocturia, Denies polyuria Musculoskeletal: Denies atrophy, Denies frequent falls, Denies gait dysfunction , Denies low back pain, Denies morning stiffness, Denies muscle weakness, Denies neck stiffness Integumentary: Denies dryness, Denies rash, Denies sores Neurological: Reports double vision, Reports seizures, Reports vertigo, Denies ataxia, Denies balance difficulties, Denies burning pain, Denies change in mentation, Denies change in speech, Denies confusion, Denies loss of vision, Denies numbness, Denies paresthesias, Denies syncope Endocrine: Denies excessive thirst, Denies heat intolerance, Denies palpitations , Denies polyphagia Past Medical History Past Medical History: Cancer (recent diagnosis of present needs evaluation), Heart Failure, Diabetes Mellitus, GERD/Reflux, Hypertension, Neurologic Disorder (vertigo ), Seizure Disorder History of Any Multi-Drug Resistant Organisms: MRSA Date of last positivie culture/infection: 2014 MDRO Source:: Sore on right leg Past Surgical History: Appendectomy, Cholecystectomy, Orthopedic Surgery (femur fracture ) Past Anesthesia/Blood Transfusion Reactions: No Reported Reaction Past Psychological History: Bipolar, Depression Smoking Status: Current every day smoker (smokes half pack a day for past 15 years) Past Alcohol Use History: None Reported Past Drug Use History: None Reported Additional History: patient lives alone, uses a cane for mobility. Patient is but ex wifw helps patient with cooking and daily activities including bathing - Past Family History Father Family Medical History: Cancer (colon cancer at age of 50), Diabetes Mellitus Additional Family Medical History / Comment(s): colon cancer Mother Family Medical History: No Reported History (patient's mother 2 weeks ago from her primary disease) Brother(s) Family Medical History: Cancer (pHBrother had cancer and another brother had a stroke patient had 7 siblings. All living), CVA/TIA Medications and Allergies Home Medications Medication Instructions Recorded Confirmed Type Albuterol Inhaler [Ventolin Hfa 1 - 2 puff INHALATION RT-Q4H PRN 04/28/17 History Inhaler] Diphenoxylate HCl/Atropine 1 tab PO Q8H PRN 04/28/17 05/25/17 History [Lomotil 2.5-0.025 mg Tablet] Divalproex ER [Depakote ER] 1,000 mg PO DAILY 04/28/17 05/25/17 History Divalproex ER [Depakote ER] 1,500 mg PO HS 04/28/17 05/25/17 History FLUoxetine HCL [PROzac] 40 mg PO DAILY 04/28/17 05/25/17 History Famotidine [Pepcid] 20 mg PO DAILY 04/28/17 05/25/17 History Furosemide [Lasix] 40 mg PO DAILY 04/28/17 05/25/17 History Insulin Glargine [Lantus] 45 unit SQ HS 04/28/17 05/25/17 History Lisinopril [Zestril] 10 mg PO DAILY 04/28/17 05/25/17 History Metoclopramide [Reglan] 10 mg PO TID PRN 04/28/17 05/25/17 History Pioglitazone [Actos] 45 mg PO DAILY 04/28/17 05/25/17 History Potassium Chloride ER [K-Dur 20] 20 meq PO DAILY 04/28/17 05/25/17 History Ziprasidone HCl [Geodon] 40 mg PO BID 04/28/17 05/25/17 History metFORMIN HCL [Glucophage] 1,000 mg PO BID 04/28/17 05/25/17 History Acetaminophen Tab [Tylenol Tab] 1,000 mg PO Q6HR PRN 05/25/17 05/25/17 History Meclizine [Antivert] 25 mg PO BID 05/25/17 05/25/17 History Tiotropium 18 Mcg/Puff [Spiriva] 1 cap INHALATION RT-DAILY 05/25/17 05/25/17 History Allergies Allergy/AdvReac Type Severity Reaction Status Date / Time codeine AdvReac Swelling Verified 05/25/17 16:30 morphine AdvReac Swelling Verified 05/25/17 16:30 Penicillins AdvReac Swelling Verified 05/25/17 16:30 Physical Exam Vitals: Vital Signs Temp Pulse Pulse Resp BP BP Pulse Ox 05/26/17 08:30 15 05/26/17 08:00 76 16 05/26/17 07:10 97.7 F 76 16 125/69 94 L 05/26/17 01:32 97.9 F 79 17 150/77 97 05/26/17 00:56 98.3 F 05/26/17 00:41 70 18 148/67 96 05/26/17 00:07 70 18 144/95 95 05/25/17 22:52 67 18 133/66 97 05/25/17 21:29 74 18 123/59 97 05/25/17 20:20 84 18 156/67 97 05/25/17 18:51 67 17 111/53 96 05/25/17 17:43 74 17 115/60 95 05/25/17 15:54 98.1 F 75 18 101/59 97 Intake and Output 05/25/17 05/26/17 05/26/17 22:59 06:59 14:59 Intake Total 240 Output Total 1000 700 Balance -1000 240 -700 Intake: Intake, IV Titration 240 Amount Sodium Chloride 0.9% 1, 240 000 ml @ 80 mls/hr IV . [id number] [facility] Rx#:[id number] Output: Urine 700 700 Uretheral (Vidal) 700 700 Post Void Residual 300 Other: Voiding Method Indwelling Catheter Indwelling Catheter Weight 129.274 kg - Constitutional General appearance: average body habitus, cooperative, mild distress, morbidly obese - EENT Eyes: EOMI, PERRLA, no photophobia, no ptosis ENT: hearing grossly normal, normal oropharynx Ears: negative: bulging - Neck Neck: no lymphadenopathy, no rigidity Carotids: bilateral: upstroke normal Thyroid: negative: normal size - Respiratory Respiratory: bilateral: CTA, negative: rales, rhonchi, wheezing - Cardiovascular Rhythm: regular Heart sounds: normal: S1, S2 Abnormal Heart Sounds: no systolic murmur, no diastolic murmur - Gastrointestinal General gastrointestinal: decreased bowel sounds, soft, tenderness (diffuse tenderness, most prominant in the right lower quadrant) Localized gastrointestinal: tender: diffuse - Integumentary Integumentary: no pale - Neurologic Motor function grossly intact No sensory deficit Past pointing b/l present on finger to nose testing proprioception normal Neurologic: CNII-XII intact (no focal deficit) - Musculoskeletal Musculoskeletal: strength equal bilaterally - Psychiatric Psychiatric: A&O x's 3, appropriate affect Results CBC & Chem 7: 05/25/17 16:35 05/25/17 16:35 Labs: Abnormal Lab Results - Last 24 Hours (Table) 05/25/17 05/25/17 Range/Units 16:35 16:35 RBC 4.14 L (4.30-5.90) m/uL MCV 101.3 H (80.0-100.0) fL Sodium 136 L (137-145) mmol/L BUN 34 H (9-20) mg/dL Thrombosis Risk Factor Assmnt - DVT/VTE Prophylaxis DVT/VTE Prophylaxis: Mechanical Prophylaxis ordered - Choose All That Apply Any of the Below Risk Factors Present?: Yes Each Factor Represents 1 point: Age 41-60 years, Obesity (BMI >25) Other Risk Factors: No Thrombosis Risk Factor Assessment Total Risk Factor Score: 2 Thrombosis Risk Factor Assessment Level: Low Risk Assessment and Plan Plan: 1.Urinary retention sec to Bladder outlet obstruction - Continue vidal catheter - Monitor I/o - Urology consult placed - Hematuria likely secondary to trauma from catheter placement, continue to monitor 2. Seizure - Continue Depakote 1000 mg by mouth daily and 1500 mg at night - Ativan 1 mg every 4 hours when necessary seizure 3. Diabetes - Continue diabetic diet - Continue Lantus 45 units at night with pioglitazone and metformin at home dose 4. Vertigo likely secondary to mastoiditis - Patient follows Dr. Bartholomew and neurologist as outpatient for vertigo and has been going on for past few weeks. MRI brain suggests no brain mass as per February 2017 imaging. He went for auditory CT in February was suggested mastoiditis bilateral along with a better treated mass which appears to be benign but needs biopsy for evaluation. - Continue meclizine for vertigo 5. Hypertension - Continue lisinopril 10 mg daily 6. CHF - Continue Lasix 40 mg by mouth daily 7. GERD - Continue Pepcid 20 mg by mouth daily 8. Depression continue fluoxetine 40 mg by mouth daily 9. DVT prophylaxis - Continue mechanical prophylaxis with SCDs and FELICITA hose - Patient can mobilize with the help of cane and is presented with hematuria and therefore we'll hold pharmacological prophylaxis as per now 10. GI prophylaxis - continue Pepcid 20 mg by mouth daily Length of stay likely discharge tomorrow based on urology evaluation CODE STATUS full code
[2017-05-26 12:19] LABS: Glucose,Whole Blood 116 mg/dL (75-99)
[2017-05-26 17:04] LABS: Glucose,Whole Blood 104 mg/dL (75-99)
[2017-05-26 20:25] LABS: Glucose,Whole Blood 109 mg/dL (75-99)
--- NOTE | 2017-05-26 20:41 | P.GSCN ---
History of Present Illness Consult date: 05/26/17 Reason for Consult: Urinary retention History of present illness: The patient reportedly came to the ER last night either for evaluation of abdominal pain, dizziness or abnormal renal function tests. Unfortunately the patient is not a good historian and the ER report conflicts with what he told me and his nurses. He reportedly had LLQ pain in the ER and a CT scan of the abdomen/pelvis showed evidence of a distended bladder. He had a bladder scan after the CT that showed 1000 cc but he was able to void after that and had 700 cc in his bladder when a catheter was placed. He had voided clear urine and was noted to have grossly bloody urine following placement of the catheter. The urine today is clear. Today he repotedly complained of RLQ pain earlier but when I asked him he denied any pain. He denied a history of urinary retention and says he usually voids every 3-4 hours during the day and 2 times at night. He described a moderate urine stream and says he usually feels he voids completely. He denied a history of hematuria or UTI. He says his bowels have been moving normally. Cr was 1.10 yesterday and had been 0.88 when last seen in the ER on 04/29/2017. He says he has had dizziness or vertigo for months and according to his hospital records he had evidence of bilateral mastoiditis on a CT scan done on . Review of Systems - Constitutional Denies fever - EENT Ears, nose, mouth and throat: Denies vertigo - Cardiovascular Denies chest pain, Denies shortness of breath - Gastrointestinal Denies constipation, Denies diarrhea, Denies vomiting - Genitourinary Reports as per HPI Past Medical History Past Medical History: Cancer (unconfirmed), Heart Failure, Diabetes Mellitus, GERD/Reflux, Hypertension, Neurologic Disorder (vertigo ), Seizure Disorder History of Any Multi-Drug Resistant Organisms: MRSA Year Discovered:: 2014 MDRO Source:: Sore on right leg Past Surgical History: Appendectomy, Cholecystectomy, Orthopedic Surgery (femur fracture ) Past Anesthesia/Blood Transfusion Reactions: No Reported Reaction Past Psychological History: Bipolar, Depression Smoking Status: Current every day smoker (smokes half pack a day for past 15 years) Past Alcohol Use History: None Reported Past Drug Use History: None Reported - Past Family History Father Family Medical History: Cancer (colon cancer at age of 50), Diabetes Mellitus Additional Family Medical History / Comment(s): colon cancer Mother Family Medical History: No Reported History (patient's mother 2 weeks ago from her primary disease) Brother(s) Family Medical History: Cancer (pHBrother had cancer and another brother had a stroke patient had 7 siblings. All living), CVA/TIA Medications and Allergies Home Medications Medication Instructions Recorded Confirmed Type Albuterol Inhaler [Ventolin Hfa 1 - 2 puff INHALATION RT-Q4H PRN 04/28/17 History Inhaler] Diphenoxylate HCl/Atropine 1 tab PO Q8H PRN 04/28/17 05/25/17 History [Lomotil 2.5-0.025 mg Tablet] Divalproex ER [Depakote ER] 1,000 mg PO DAILY 04/28/17 05/25/17 History Divalproex ER [Depakote ER] 1,500 mg PO HS 04/28/17 05/25/17 History FLUoxetine HCL [PROzac] 40 mg PO DAILY 04/28/17 05/25/17 History Famotidine [Pepcid] 20 mg PO DAILY 04/28/17 05/25/17 History Furosemide [Lasix] 40 mg PO DAILY 04/28/17 05/25/17 History Insulin Glargine [Lantus] 45 unit SQ HS 04/28/17 05/25/17 History Lisinopril [Zestril] 10 mg PO DAILY 04/28/17 05/25/17 History Metoclopramide [Reglan] 10 mg PO TID PRN 04/28/17 05/25/17 History Pioglitazone [Actos] 45 mg PO DAILY 04/28/17 05/25/17 History Potassium Chloride ER [K-Dur 20] 20 meq PO DAILY 04/28/17 05/25/17 History Ziprasidone HCl [Geodon] 40 mg PO BID 04/28/17 05/25/17 History metFORMIN HCL [Glucophage] 1,000 mg PO BID 04/28/17 05/25/17 History Acetaminophen Tab [Tylenol Tab] 1,000 mg PO Q6HR PRN 05/25/17 05/25/17 History Meclizine [Antivert] 25 mg PO BID 05/25/17 05/25/17 History Tiotropium 18 Mcg/Puff [Spiriva] 1 cap INHALATION RT-DAILY 05/25/17 05/25/17 History Allergies Allergy/AdvReac Type Severity Reaction Status Date / Time codeine AdvReac Swelling Verified 05/25/17 16:30 morphine AdvReac Swelling Verified 05/25/17 16:30 Penicillins AdvReac Swelling Verified 05/25/17 16:30 Surgical - Exam Vital Signs Temp Pulse Resp BP Pulse Ox 98.1 F 75 18 101/59 97 05/25/17 15:54 05/25/17 15:54 05/25/17 15:54 05/25/17 15:54 05/25/17 15:54 - General no pain, obese - Respiratory normal respiratory effort - Abdomen Abdomen: soft, non tender, no masses Hernia: none - Genitourinary testicles non-tender, other (Ogden catheter is draining clear urine) - Psychiatric no memory intact (Unable describe why he came to ER last night) Results - Labs 05/25/17 16:35 05/25/17 16:35 Abnormal Lab Results - Last 24 Hours (Table) 05/26/17 05/26/17 Range/Units 12:02 17:02 POC Glucose (mg/dL) 116 H 104 H (75-99) mg/dL Microbiology - Last 24 Hours (Table) 05/25/17 19:16 Urine Culture - Preliminary Urine,Catheterized Assessment and Plan (1) Urinary retention Narrative/Plan: It is not clear whether this patient had urinary retention as the main cause for coming to the ER. His creatinine was higher than it had been in late 04/2017 but he had a CT scan of the abdomen in 12/2011 that also showed a distended bladder with a left posterior wall bladder diverticulum and so I suspect he has had incomplete voiding for some time. He has a long history of diabetes and may have some loss of sensation of bladder fullness that over time led to chronic overdistention.. I would suggest he be started on tamsulosin 0.4 mg daily and then have a voiding trial in the morning. He should be followed with periodic bladder scans to insure he is voiding adequately but I suspect his PVR's will be elevated. Status: Acute (2) Hematuria Narrative/Plan: The patient's gross hematuria is most likely iatrogenic and directly related to placing a catheter in the ER. It has resolved and no further evaluation is needed. Status: Acute
[2017-05-26] MEDS ORDERED: TAMSULOSIN 0.4 MG CAP.ER.24H PO STA (20:42)
[2017-05-26] MEDS ORDERED: INSULIN GLARGINE 100 UNIT/ML 10 ML VIAL SQ SCH (21:00)
[2017-05-26] MEDS ORDERED: DIVALPROEX ER 500 MG TAB.ER.24H PO SCH (21:00)
[2017-05-26 21:22] VITALS: RESP 18
[2017-05-27] MEDS: ACETAMINOPHEN TAB 325 MG TAB PO PRN ×2 (06:16→11:13)
[2017-05-27] MEDS: SODIUM CHLORIDE 0.9% 1,000 ML IV SCH ×2 (06:17→17:26)
[2017-05-27 06:28] VITALS: BP 120/62; TEMP 97.9
[2017-05-27 07:41] LABS: Glucose,Whole Blood 88 mg/dL (75-99)
[2017-05-27 08:24] LABS: Basophils % (A) 1 %; CH 33.6; CHCM 32.8; Eosinophils # (A) 0.2 k/uL (0-0.7); Eosinophils % (A) 3 %; HCT 42.1 % (39.0-53.0); HDW 2.24; HGB 13.6 gm/dL (13.0-17.5); Luc # (Auto) 0.12; Luc % (Auto) 2; Lymphocytes # (A) 2.3 k/uL (1.0-4.8); Lymphocytes % (A) 38 %; MCH 33.2 pg (25.0-35.0); MCHC 32.2 g/dL (31.0-37.0); MCV 103.1 fL (80.0-100.0); Macrocytosis Slight; Mean Platelet Volume 7.5; Monocytes # (A) 0.5 k/uL (0-1.0); Monocytes % (A) 8 %; Neutrophils # (A) 2.9 k/uL (1.3-7.7); Neutrophils % (A) 49 %; RBC 4.09 m/uL (4.30-5.90); RDW 14.5 % (11.5-15.5); WBC (Perox) 5.72
[2017-05-27] MEDS: FLUoxetine HCL 20 MG CAP PO SCH (08:27)
[2017-05-27] MEDS: PIOGLITAZONE 45 MG TAB PO SCH (08:27)
[2017-05-27] MEDS: LISINOPRIL 10 MG TAB PO SCH (08:27)
[2017-05-27] MEDS: ZIPRASIDONE 40 MG CAP PO SCH (08:27)
[2017-05-27] MEDS: FUROSEMIDE 40 MG TAB PO SCH (08:27)
[2017-05-27] MEDS: metFORMIN 500 MG TAB PO SCH (08:27)
[2017-05-27] MEDS: POTASSIUM CHLORIDE ER 20 MEQ TAB.ER PO SCH (08:27)
[2017-05-27] MEDS: FAMOTIDINE 20 MG TAB PO SCH (08:27)
[2017-05-27] MEDS: MECLIZINE 25 MG TAB PO SCH (08:27)
[2017-05-27] MEDS: DIVALPROEX ER 500 MG TAB.ER.24H PO SCH (08:28)
[2017-05-27] MEDS: IPRATROPIUM 0.5 MG/2.5 ML NEBU INHALATION SCH ×5 (08:29→17:01)
--- NOTE | 2017-05-27 09:27 | P.PN ---
Progress Note - Text The patient says that he is comfortable this morning. His catheter was removed and his post void residuals will be checked using the bladder scan unit. If his residuals are less than 300 mL then he could be discharged later in the day but should continue tamsulosin 0.4 mg daily. He has seen in the past and should have an appointment set up for follow-up in 1-2 weeks.
[2017-05-27 11:32] LABS: ALT 27 U/L (21-72); AST 20 U/L (17-59); Alkaline Phosphatase 87 U/L (38-126); Anion Gap 7 mmol/L; Bilirubin, Delta 0.2 mg/dL (0.0-0.2); Blood Urea Nitrogen 22 mg/dL (9-20); Calcium 9.1 mg/dL (8.4-10.2); Carbon Dioxide 25 mmol/L (22-30); Chloride 108 mmol/L (98-107); Glucose 83 mg/dL (74-99); Non-African American GFR(MDRD) >60 (>60 ml/min/1.73 sqM); Potassium 4.2 mmol/L (3.5-5.1); Sodium 140 mmol/L (137-145); Total Bilirubin 0.4 mg/dL (0.2-1.3)
[2017-05-27] MEDS ORDERED: IPRATROPIUM 0.5 MG/2.5 ML NEBU INHALATION SCH (11:35)
[2017-05-27 12:37] LABS: Glucose,Whole Blood 94 mg/dL (75-99)
[2017-05-27 13:39] VITALS: PULSE 63
--- NOTE | 2017-05-27 15:22 | P.DS ---
Providers Date of admission: 05/26/17 00:25 Expected date of discharge: 05/27/17 Attending physician: Angela Coe Consults: 05/26/17 00:26 Consult Physician Urgent Consulting Provider: Bhanu Acosta Consult Reason/Comments: Possible bladder outlet obstruction, hematuria Do you want consulting provider notified?: Yes, Notify in am Primary care physician: Mar[facility] Course: Mr. Humphries is a 56 years old male patient of , with past medical history of diabetes for 15 years, GERD, hypertension, seizure disorder, CHF, vertigo who presented the ED with chief complaint of abdominal pain that started suddenly when he woke up in the morning. Patient said he was unable to urinate for 6 hours prior to the start of the abdominal pain. He denies any similar symptoms in the past. He was also complaining of dizziness for the past several months for which he sees a neurologist. Patient mentions he is being evaluated for a brain mass which is contributing to the vertigo and has been treated with meclizine. Patient endorses double vision and sweats but denies any change in bowel habits, hematemesis or melena. He endorses burning when he urinates and increased frequency prior to the presentation. Patient denies any fever, chills, shortness of breath, chest pain, back pain, vomiting, and loss of consciousness. Patient denies any weakness or numbness in her lowest extremities. In the ED, patient underwent a CT abdomen with suggestive bladder outlet obstruction. Patient underwent a bladder scan which suggested urinary retention of 1 L. Urinary catheter was placed and patient had bloody urine since the catheter has been placed.Patient denies hematuria prior to presentation. Urology was consulted and patient was admitted for further management. Discharge Diagnosis with Hospital Care 1.Urinary retention sec to Bladder outlet obstruction - Continue vidal catheterDiscontinued with postvoid residual of 300, cleared by urology for discharge. Flomax started out patient follow-up with Dr. Lucas - Monitor I/o - Urology consult placed - Hematuria likely secondary to trauma from catheter placement, continue to monitor 2. Seizure - Continue Depakote 1000 mg by mouth daily and 1500 mg at night No change in maintenance treatment, no active symptoms - Ativan 1 mg every 4 hours when necessary seizure 3. Diabetes - Continue diabetic diet - Continue Lantus 45 units at night with pioglitazone and metformin at home dose 4. Vertigo likely secondary to mastoiditis - Patient follows Dr. Bartholomew and neurologist as outpatient for vertigo and has been going on for past few weeks. MRI brain suggests no brain mass as per February 2017 imaging. He went for auditory CT in February was suggested mastoiditis bilateral along with a better treated mass which appears to be benign but needs biopsy for evaluation. - Continue meclizine for vertigo 5. Hypertension - Continue lisinopril 10 mg daily 6. CHF - Continue Lasix 40 mg by mouth daily 7. GERD - Continue Pepcid 20 mg by mouth daily 8. Depression continue fluoxetine 40 mg by mouth daily 9. DVT prophylaxis - Continue mechanical prophylaxis with SCDs and FELICITA hose - Patient can mobilize with the help of cane and is presented with hematuria and therefore we'll hold pharmacological prophylaxis as per now 10. GI prophylaxis - continue Pepcid 20 mg by mouth daily 11. Left lower quadrant abdominal pain, suspicious for early diverticulitis , no bowel obstruction, no ileus, patient was started on ciprofloxacin and Flagyl which he will complete as outpatient course Discharge condition stable and improved Discharge Medication List Albuterol Inhaler [Ventolin Hfa Inhaler] 1 - 2 puff INHALATION RT-Q4H PRN [History] Diphenoxylate HCl/Atropine [Lomotil 2.5-0.025 mg Tablet] 1 tab PO Q8H PRN [History] Divalproex ER [Depakote ER] 1,000 mg PO DAILY 04/28/17 [History] Divalproex ER [Depakote ER] 1,500 mg PO HS 04/28/17 [History] FLUoxetine HCL [PROzac] 40 mg PO DAILY 04/28/17 [History] Famotidine [Pepcid] 20 mg PO DAILY 04/28/17 [History] Furosemide [Lasix] 40 mg PO DAILY 04/28/17 [History] Insulin Glargine [Lantus] 45 unit SQ HS 04/28/17 [History] Lisinopril [Zestril] 10 mg PO DAILY 04/28/17 [History] Metoclopramide [Reglan] 10 mg PO TID PRN 04/28/17 [History] Pioglitazone [Actos] 45 mg PO DAILY 04/28/17 [History] Potassium Chloride ER [K-Dur 20] 20 meq PO DAILY 04/28/17 [History] Ziprasidone HCl [Geodon] 40 mg PO BID 04/28/17 [History] metFORMIN HCL [Glucophage] 1,000 mg PO BID 04/28/17 [History] Acetaminophen Tab [Tylenol] 1,000 mg PO Q6HR PRN 05/25/17 [History] Meclizine [Antivert] 25 mg PO BID 05/25/17 [History] Tiotropium 18 Mcg/Puff [Spiriva] 1 cap INHALATION RT-DAILY 05/25/17 [History] Ciprofloxacin HCl [Cipro] 500 mg PO Q12HR #20 tablet 05/27/17 [Rx] metroNIDAZOLE [Flagyl] 500 mg PO TID #30 tab 05/27/17 [Rx] Patient Condition at Discharge: Fair Plan - Discharge Summary New Discharge Prescriptions: New Ciprofloxacin HCl [Cipro] 500 mg PO Q12HR #20 tablet metroNIDAZOLE [Flagyl] 500 mg PO TID #30 tab Continue Pioglitazone [Actos] 45 mg PO DAILY Insulin Glargine [Lantus] 45 unit SQ HS Albuterol Inhaler [Ventolin Hfa Inhaler] 1 - 2 puff INHALATION RT-Q4H PRN PRN Reason: sob metFORMIN HCL [Glucophage] 1,000 mg PO BID Metoclopramide [Reglan] 10 mg PO TID PRN PRN Reason: Nausea Famotidine [Pepcid] 20 mg PO DAILY Ziprasidone HCl [Geodon] 40 mg PO BID Potassium Chloride ER [K-Dur 20] 20 meq PO DAILY Lisinopril [Zestril] 10 mg PO DAILY Furosemide [Lasix] 40 mg PO DAILY FLUoxetine HCL [PROzac] 40 mg PO DAILY Divalproex ER [Depakote ER] 1,000 mg PO DAILY Divalproex ER [Depakote ER] 1,500 mg PO HS Diphenoxylate HCl/Atropine [Lomotil 2.5-0.025 mg Tablet] 1 tab PO Q8H PRN PRN Reason: Diarrhea Acetaminophen Tab [Tylenol] 1,000 mg PO Q6HR PRN PRN Reason: Pain Meclizine [Antivert] 25 mg PO BID Tiotropium 18 Mcg/Puff [Spiriva] 1 cap INHALATION RT-DAILY Discharge Medication List Albuterol Inhaler [Ventolin Hfa Inhaler] 1 - 2 puff INHALATION RT-Q4H PRN [History] Diphenoxylate HCl/Atropine [Lomotil 2.5-0.025 mg Tablet] 1 tab PO Q8H PRN [History] Divalproex ER [Depakote ER] 1,000 mg PO DAILY 04/28/17 [History] Divalproex ER [Depakote ER] 1,500 mg PO HS 04/28/17 [History] FLUoxetine HCL [PROzac] 40 mg PO DAILY 04/28/17 [History] Famotidine [Pepcid] 20 mg PO DAILY 04/28/17 [History] Furosemide [Lasix] 40 mg PO DAILY 04/28/17 [History] Insulin Glargine [Lantus] 45 unit SQ HS 04/28/17 [History] Lisinopril [Zestril] 10 mg PO DAILY 04/28/17 [History] Metoclopramide [Reglan] 10 mg PO TID PRN 04/28/17 [History] Pioglitazone [Actos] 45 mg PO DAILY 04/28/17 [History] Potassium Chloride ER [K-Dur 20] 20 meq PO DAILY 04/28/17 [History] Ziprasidone HCl [Geodon] 40 mg PO BID 04/28/17 [History] metFORMIN HCL [Glucophage] 1,000 mg PO BID 04/28/17 [History] Acetaminophen Tab [Tylenol] 1,000 mg PO Q6HR PRN 05/25/17 [History] Meclizine [Antivert] 25 mg PO BID 05/25/17 [History] Tiotropium 18 Mcg/Puff [Spiriva] 1 cap INHALATION RT-DAILY 05/25/17 [History] Ciprofloxacin HCl [Cipro] 500 mg PO Q12HR #20 tablet 05/27/17 [Rx] metroNIDAZOLE [Flagyl] 500 mg PO TID #30 tab 05/27/17 [Rx] Follow up Appointment(s)/Referral(s): Daniel Rose MD [STAFF PHYSICIAN] - 1 Week (Patient to call Dr. Rose's office Monday morning to schedule follow up appointment. The office is closed at time of discharge.) Marck Bartholomew DO [Primary Care Provider] - 1-2 days (Patient to call Dr. Neal's office Monday morning to schedule follow up appointment. The office is closed at time of discharge.) Patient Instructions/Handouts: Ciprofloxacin (By mouth), Metronidazole (By mouth), Urinary Retention in Men (GEN), Vertigo (DC), Hematuria (GEN) Discharge Disposition: HOME SELF-CARE
== END 2017-05-27 17:15 | disposition home or self-care (01) ==
LOC: EC 15:32 → 5MS5E 05-26 00:25
PROVIDERS: ADMIT Internal Medicine; ATTEND Internal Medicine
DX: N32.0 Bladder-neck obstruction (principal); R31.0 Gross hematuria; R42 Dizziness and giddiness; R61 Generalized hyperhidrosis; G40.909 Epilepsy, unspecified, not intractable, without status epilepticus; E11.9 Type 2 diabetes mellitus without complications; I11.0 Hypertensive heart disease with heart failure; I50.9 Heart failure, unspecified; F31.9 Bipolar disorder, unspecified; K21.9 Gastro-esophageal reflux disease without esophagitis; R10.32 Left lower quadrant pain; E66.01 Morbid (severe) obesity due to excess calories; Z68.41 Body mass index [BMI] 40.0-44.9, adult; H53.2 Diplopia; F17.200 Nicotine dependence, unspecified, uncomplicated; Z79.899 Other long term (current) drug therapy; Z79.4 Long term (current) use of insulin; Z79.84 Long term (current) use of oral hypoglycemic drugs; Z88.5 Allergy status to narcotic agent; Z88.0 Allergy status to penicillin; Z86.14 Personal history of Methicillin resistant Staphylococcus aureus infection; Z83.3 Family history of diabetes mellitus; Z80.0 Family history of malignant neoplasm of digestive organs; Z82.3 Family history of stroke
CPT/HCPCS: 51702; 96361 ×8; 96360 ×2; 99285; 51798; 36415; 94640; 93005; 97161; 80053; 80048; 80076; 84443; 83690; 85025 ×2; 85610; 85730; 81003; 87086; 87077; 87186; 74177; G0378 ×2; Q9967

== ENCOUNTER 2017-06-09 06:50 | Day surgery (SDC) | payer MEDICARE, OTHER ==
[2017-06-07 12:48] VITALS: BMI 42.5
[~2017-06-09 06:50] MED LIST: LACTATED RINGERS 1,000 ML IV SCH
[2017-06-09 07:08] VITALS: RESP 16; TEMP 97.8
[2017-06-09] MEDS ORDERED: DEXTROSE 5%-0.45% NACL 1,000 ML IV SCH (07:19)
[2017-06-09 07:25] LABS: Glucose,Whole Blood 61 mg/dL (75-99)
[2017-06-09] MEDS ORDERED: LIDOCAINE 1% 20 ML VIAL (10MG/ML) FOR IV START INTRADERMA ONE (07:26)
[2017-06-09] MEDS ORDERED: PROPOFOL 10 MG/ML 20 ML VIAL IV ONE (08:36)
[2017-06-09] MEDS ORDERED: LIDOCAINE 1% INJ 10MG/ML (20 ML MDV) ONE (08:36)
--- NOTE | 2017-06-09 08:57 | P.PCN ---
Date of Procedure: 06/09/17 Procedure(s) Performed: BRIEF HISTORY: Patient is a 56-year-old pleasant white male, scheduled for an elective colonoscopy as a part of screening for colorectal neoplasia. He also has family history of colorectal neoplasia. PROCEDURE PERFORMED: Colonoscopy. PREOPERATIVE DIAGNOSIS: Screening for colon cancer/family history of colon cancer. IV sedation per Anesthesia. PROCEDURE: After informed consent was obtained, the patient, was brought into the endoscopy unit. IV sedation was administered by Anesthesia under continuous monitoring. Digital rectal examination was normal. Initially the Olympus CF- 160 flexible video colonoscope was then inserted in the rectum, gradually advanced into the cecum without any difficulty. Careful examination was performed as the scope was gradually being withdrawn. Ileocecal valve and the appendiceal orifice were visualized and appeared normal. Prep was fair. Mucosa of the cecum, ascending colon, transverse colon, descending colon, sigmoid colon , and rectum appeared normal. Retroflexion was performed in the rectum and no lesions were seen. The patient tolerated the procedure well. IMPRESSION: Normal-appearing colon from rectum to cecum with no evidence of colorectal neoplasia . RECOMMENDATIONS: Findings of this examination were discussed with the patient as well as his family. He was advised to have a repeat surveillance colonoscopy in 5 years because of the family history of colon cancer..
[2017-06-09 09:47] VITALS: BP 149/67; PULSE 67
== END 2017-06-09 10:05 | disposition home or self-care (01) ==
LOC: ORWHC2ENDO 06:50
PROVIDERS: ATTEND Internal Medicine Gastroenterology
DX: Z12.11 Encounter for screening for malignant neoplasm of colon (principal); Z80.0 Family history of malignant neoplasm of digestive organs; I10 Essential (primary) hypertension; F17.200 Nicotine dependence, unspecified, uncomplicated; E11.9 Type 2 diabetes mellitus without complications; Z79.4 Long term (current) use of insulin; Z86.73 Personal history of transient ischemic attack (TIA), and cerebral infarction without residual deficits; G40.909 Epilepsy, unspecified, not intractable, without status epilepticus; K21.9 Gastro-esophageal reflux disease without esophagitis; Z79.899 Other long term (current) drug therapy; Z88.5 Allergy status to narcotic agent; Z88.0 Allergy status to penicillin
CPT/HCPCS: J2001; J2704; G0105

== ENCOUNTER → 2017-07-17 | Outpatient (CLI) | payer MEDICARE, OTHER ==
--- NOTE | 2017-07-17 15:53 | XR ---
EXAMINATION TYPE: XR chest 2V DATE OF EXAM: 07/17/2017 COMPARISON: 04/28/2017 TECHNIQUE: PA and lateral views submitted. HISTORY: Preop FINDINGS: The lungs are clear and there is no pneumothorax, pleural effusion, or focal pneumonia. Hypertrophi c and degenerative change of the spine. IMPRESSION: 1. No acute process.
== END | disposition home or self-care (01) ==
LOC: RADXRMAIN 15:08
PROVIDERS: ATTEND Family Medicine
DX: Z01.818 Encounter for other preprocedural examination (principal)
CPT/HCPCS: 71020

== ENCOUNTER → 2017-12-21 | Outpatient (CLI) | payer MEDICARE, OTHER ==
--- NOTE | 2017-12-21 17:31 | CONS ---
CONSULTATION DATE OF SERVICE: 12/21/2017 This patient is a 57-year-old gentleman who has been evaluated in the sleep center for obstructive sleep apnea-hypopnea syndrome. HISTORY OF PRESENT ILLNESS/SLEEP-WAKE EVALUATION: Patient was diagnosed with obstructive sleep apnea in another institution about 5 years ago. He was started on treatment with CPAP but had difficulties with CPAP and subsequently about 3 years ago he stopped treatment. At present his sleep schedule is from around 8 p.m. until 3 or 4 a.m. He does have problems with falling asleep, although there is no TV in his bedroom. He sleeps in different positions, including back, side or stomach, with snoring and awakenings from sleep multiple times with nocturia, panic attacks, heartburn, restless legs, sleeptalking, sweating, grinding teeth. Positive history of sleepwalking sometimes. In the morning patient wakes up tired, worries about his sleep, has problems with memory, concentration, depression, anxiety. [place] Sleepiness Scale today is 2. MEDICATIONS: 1. Depakote. 2. Geodon. 3. Prozac. 4. Lisinopril. 5. Pepcid. 6. Glucophage. 7. Albuterol inhaler. 8. Spiriva inhaler. 9. Lantus. 10.Lomotil. 11.Tamsulosin. 12. . PAST MEDICAL HISTORY: 1. Hypertension. 2. Diabetes. 3. Acid reflux. 4. COPD. 5. BPH. 6. Depression. PAST SURGICAL HISTORY: 1. Cholecystectomy. 2. Appendectomy. 3. Surgery for saliva gland; it was removed in 2017. SOCIAL HISTORY: Positive for smoking about half pack a day for 15 years. Alcohol consumption none. REVIEW OF SYSTEMS: Multiple awakenings from sleep, tiredness, sometimes sleepiness during the day. Some episodes of palpitation with his heart during the day. Some episodes of wheezing. FAMILY HISTORY: Hypertension, heart problems, hyperlipidemia, epilepsy, stroke, arthritis, sinus headache, sleep apnea, acid reflux, diabetes, mental illness, stress, restless legs. PHYSICAL EXAMINATION: GENERAL A pleasant gentleman without distress. VITAL SIGNS: BP 140/71, HR 88, RR 16, height 5 feet 8 inches, weight 303 pounds, BMI 46, temperature 97.5, oxygen saturation on room air 96% HEENT: PERRLA, EOMI. Evaluation of oropharynx showed tongue protrudes midline; extremely low position of soft palate. NECK: Supple. No JVD. Thyroid is not palpable. Wide neck; 17-1/2 inches in circumference. LUNGS: Clear to percussion and to auscultation. Good air exchange. No wheezing or rhonchi. HEART: S1, S2 regular. No murmurs, gallops or rubs. ABDOMEN: Obese. Soft and nontender. Bowel sounds are present. No organomegaly appreciated. EXTREMITIES : No clubbing or cyanosis. Patient walks with a cane. [employer] SYSTEM: Awake, alert, and oriented X3. Cranial nerves 2 to 7 intact. There is no fasciculation or atrophy. noted. No focal deficits observed. IMPRESSION: 1. Snoring, multiple awakenings from sleep, low position of soft palate, history of obstructive sleep apnea-hypopnea syndrome in the past, wide neck; obstructive sleep apnea-hypopnea syndrome. 2. Obesity; body mass index of 46. 3. History of restless legs. 4. Diabetes mellitus. 5. Hypertension. 6. Acid reflux. 7. Chronic obstructive pulmonary disease. 8. History of benign prostatic hypertrophy. 9. History of depression. 10.Status post cholecystectomy. 11.Status post appendectomy. 12.Status post recent saliva gland removed from the right ear area. PLAN: 1. Polysomnography for evaluation of patient's breathing during sleep. 2. CPAP/BiPAP titration if sleep study confirms obstructive sleep apnea-hypopnea syndrome. 3. Preferable position during sleep on the side. 4. No driving if patient feels any sleepiness. 5. I will see patient for follow up visit to explain results of testing and following plan. Thank you very much for referring this patient for consultation. Sincerely, Gabriel Hernandez MD, PhD, FAASM Diplomat of [place] [employer] [place] [employer] Program Checker of [facility] [place] MMODL / IJN: [id number] /
== END | disposition home or self-care (01) ==
LOC: SLEEP 14:36
PROVIDERS: ATTEND Internal Medicine
DX: G47.33 Obstructive sleep apnea (adult) (pediatric) (principal); G25.81 Restless legs syndrome; J44.9 Chronic obstructive pulmonary disease, unspecified; N40.0 Benign prostatic hyperplasia without lower urinary tract symptoms; F32.9 Major depressive disorder, single episode, unspecified; E11.9 Type 2 diabetes mellitus without complications; E66.9 Obesity, unspecified; K21.9 Gastro-esophageal reflux disease without esophagitis; I10 Essential (primary) hypertension; Z79.01 Long term (current) use of anticoagulants; Z79.84 Long term (current) use of oral hypoglycemic drugs; Z79.51 Long term (current) use of inhaled steroids; Z79.899 Other long term (current) drug therapy; Z79.4 Long term (current) use of insulin; Z68.42 Body mass index [BMI] 45.0-49.9, adult; Z90.49 Acquired absence of other specified parts of digestive tract; Z98.890 Other specified postprocedural states; Z87.891 Personal history of nicotine dependence; Z99.89 Dependence on other enabling machines and devices
CPT/HCPCS: 99211

== ENCOUNTER 2018-04-24 03:16 | Inpatient (IN) | payer MEDICARE, OTHER ==
[2018-04-24 03:32] LABS: Glucose,Whole Blood 81 mg/dL (75-99)
[2018-04-24 03:40] LABS: Basophils % (A) 1 %; Eosinophils # (A) 0.1 k/uL (0-0.7); Eosinophils % (A) 2 %; HCT 42.8 % (39.0-53.0); HGB 13.9 gm/dL (13.0-17.5); Lymphocytes # (A) 1.7 k/uL (1.0-4.8); Lymphocytes % (A) 22 %; MCH 31.3 pg (25.0-35.0); MCHC 32.5 g/dL (31.0-37.0); MCV 96.5 fL (80.0-100.0); Mean Platelet Volume 6.6; Monocytes # (A) 0.7 k/uL (0-1.0); Monocytes % (A) 9 %; Neutrophils % (A) 66 %; Platelet Count 192 k/uL (150-450); RBC 4.43 m/uL (4.30-5.90); RDW 13.7 % (11.5-15.5); WBC 7.6 k/uL (3.8-10.6)
[2018-04-24 03:49] LABS: ALT 25 U/L (21-72); AST 23 U/L (17-59); Albumin 3.4 g/dL (3.5-5.0); Alcohol <10 mg/dL; Alkaline Phosphatase 71 U/L (38-126); Anion Gap 7 mmol/L; Blood Urea Nitrogen 24 mg/dL (9-20); Calcium 8.8 mg/dL (8.4-10.2); Carbon Dioxide 21 mmol/L (22-30); Chloride 112 mmol/L (98-107); Glucose 78 mg/dL (74-99); Potassium 3.5 mmol/L (3.5-5.1); Sodium 140 mmol/L (137-145); Total Bilirubin 0.4 mg/dL (0.2-1.3); Total Protein 6.4 g/dL (6.3-8.2)
[2018-04-24 03:54] LABS: Valproic Acid (Depakene) 33.1 ug/mL
[2018-04-24] MEDS ORDERED: DIVALPROEX 500 MG TABLET.DR PO STA (04:23)
[2018-04-24] MEDS: DEXTROSE 50%-WATER 50 ML SYRINGE IVP STA ×2 (04:28→07:35)
[2018-04-24 04:31] LABS: Appearance,Urine Clear (Clear); Bilirubin,Urine Negative (Negative); Blood,Urine Negative (Negative); Color,Urine Yellow; Glucose,Urine (UA) Negative (Negative); Ketones,Urine Negative (Negative); Leukocyte Esterase,Urine Trace (Negative); Mucus,Urine Rare /hpf; Nitrite,Urine Negative (Negative); PH, Urine 5.5 (5.0-8.0); Protein,Urine Trace (Negative); RBC,Urine <1 /hpf (0-5); Specific Gravity,Urine 1.017 (1.001-1.035); Squamous Epithelial Cell,Urine <1 /hpf (0-4); Urobilinogen,Urine <2.0 mg/dL (<2.0); WBC,Urine 4 /hpf (0-5)
[2018-04-24 04:45] LABS: Amphetamine Screen,Urine Not Detected (NotDetected); Barbiturate Screen,Urine Not Detected (NotDetected); Benzodiazepines Screen,Urine Detected (NotDetected); Cocaine Screen,Urine Not Detected (NotDetected); Methadone Screen, Urine Not Detected (NotDetected); Opiate Screen,Urine Not Detected (NotDetected); Oxycodone Screen, Urine Not Detected (NotDetected); Phencyclidine Screen,Urine Not Detected (NotDetected); Tricyclic Antidepressant,Urine Not Detected (NotDetected); Urn Cannabinoid Scrn Not Detected (NotDetected)
[2018-04-24 04:48] LABS: Glucose,Whole Blood 110 mg/dL (75-99)
[2018-04-24] MEDS ORDERED: DEXTROSE 50%-WATER 50 ML SYRINGE IVP STA ×2 (06:11→09:06)
[2018-04-24] MEDS ORDERED: DEXTROSE 5%-0.45% NACL 1,000 ML IV ONE ×2 (06:11→07:37)
[2018-04-24 06:20] LABS: Glucose,Whole Blood 30 mg/dL (75-99)
[2018-04-24 06:20] LABS: Glucose,Whole Blood 29 mg/dL (75-99)
[2018-04-24 06:54] LABS: Glucose,Whole Blood 76 mg/dL (75-99)
--- NOTE | 2018-04-24 07:01 | ED ---
Seizure HPI - General Source: EMS Mode of arrival: EMS Limitations: altered mental status (Patient appears postictal) - History of Present Illness MD Complaint: seizure Onset/Timin -: days(s) Description of Episode: loss of consciousness, tonic-clonic movement, post- event confusion Witnessed: yes - by bystander Trauma: No Seizure History: known seizure disorder Place: home Associated Symptoms: confusion Treatments Prior to Arrival: other (Dextrose) <Keegan Sen - Last Filed: 04/24/18 07:02> <Nathan Ward - Last Filed: 04/24/18 08:33> - General Chief Complaint: Seizure Stated Complaint: Diabetic, Seizures Time Seen by Provider: 04/24/18 03:20 - History of Present Illness Initial Comments: This patient is a 57-year-old man with history of seizure disorder, who is brought in by ambulance to be evaluated after he reportedly had 2 seizures today. The patient takes valproic acid for the seizure disorder. On arrival he is not able to give much history as he does appear to be post ictal. It was reported by EMS that at their initial arrival his blood sugar was low, in the 40s, and they did give dextrose. (Keegan Sen) - Related Data Home Medications Medication Instructions Recorded Confirmed Divalproex ER [Depakote ER] 1,000 mg PO DAILY 04/28/17 04/24/18 Divalproex ER [Depakote ER] 1,500 mg PO HS 04/28/17 04/24/18 FLUoxetine HCL [PROzac] 40 mg PO DAILY 04/28/17 04/24/18 Famotidine [Pepcid] 20 mg PO DAILY 04/28/17 04/24/18 Insulin Glargine [Lantus] 45 unit SQ 04/28/17 04/24/18 Lisinopril [Zestril] 10 mg PO DAILY 04/28/17 04/24/18 metFORMIN HCL [Glucophage] 1,000 mg PO BID 04/28/17 04/24/18 Dicyclomine [Bentyl] 10 mg PO AC-TID 04/24/18 04/24/18 Escitalopram Oxalate [Lexapro] 10 mg PO DAILY 04/24/18 04/24/18 Ibuprofen [Motrin] 800 mg PO TID PRN 04/24/18 04/24/18 Tamsulosin [Flomax] 0.4 mg PO DAILY 04/24/18 04/24/18 Ziprasidone [Geodon] 80 mg PO BID 04/24/18 04/24/18 Allergies Allergy/AdvReac Type Severity Reaction Status Date / Time codeine Allergy Swelling Verified 04/24/18 07:59 morphine Allergy Swelling Verified 04/24/18 07:59 Penicillins Allergy Swelling Verified 04/24/18 07:59 Sulfa (Sulfonamide Allergy Unknown Verified 04/24/18 07:59 Antibiotics) CHLORINE Allergy Unknown Uncoded 04/24/18 07:59 Review of Systems ROS Other: All systems not noted in ROS Statement are negative. Limitations: ROS unobtainable due to patients medical condition (Patient appears postictal) <Keegan Sen - Last Filed: 04/24/18 07:02> ROS Other: All systems not noted in ROS Statement are negative. <Nathan Ward - Last Filed: 04/24/18 08:33> ROS Statement: Those systems with pertinent positive or pertinent negative responses have been documented in the HPI. Past Medical History Past Medical History: Cancer, Heart Failure, Diabetes Mellitus, GERD/Reflux, Hypertension, Neurologic Disorder, Seizure Disorder Additional Past Medical History / Comment(s): LAST SEIZURE 1 MONTH AGO., HOSPITALIZED 05/26/17-05/27/17 FOR HEMATURIA, DIFFICULTY URINATING AND DIZZINESS. , HX OF FALLING DUE TO VERTIGO-USING CANE AND WALKER, LIMPS. , ENLARGED PROSTATE. History of Any Multi-Drug Resistant Organisms: MRSA Date of last positivie culture/infection: 2014 MDRO Source:: Sore on right leg Past Surgical History: Appendectomy, Cholecystectomy, Orthopedic Surgery Past Anesthesia/Blood Transfusion Reactions: No Reported Reaction Past Psychological History: Bipolar, Depression Smoking Status: Current every day smoker Past Alcohol Use History: None Reported Past Drug Use History: None Reported - Past Family History Father Family Medical History: Cancer, Diabetes Mellitus Additional Family Medical History / Comment(s): colon cancer Mother Family Medical History: No Reported History Brother(s) Family Medical History: Cancer, CVA/TIA Additional Family Medical History / Comment(s): PROSTATE CANCER <Keegan Sen - Last Filed: 04/24/18 07:02> General Exam Limitations: no limitations General appearance: other (Patient is responsive but does appear postictal.) Head exam: Present: atraumatic, normocephalic Eye exam: Present: normal appearance, PERRL. Absent: scleral icterus, conjunctival injection ENT exam: Present: mucous membranes dry Neck exam: Present: normal inspection, full ROM. Absent: tenderness Respiratory exam: Present: rhonchi. Absent: wheezes, rales, stridor Cardiovascular Exam: Present: regular rate, normal rhythm, normal heart sounds. Absent: systolic murmur, diastolic murmur, rubs, gallop GI/Abdominal exam: Present: soft. Absent: distended, tenderness, guarding, rebound, mass Back exam: Present: normal inspection. Absent: CVA tenderness (R), CVA tenderness (L) Neurological exam: Present: alert, altered. Absent: motor sensory deficit Skin exam: Present: warm, dry, intact, normal color. Absent: rash <Keegan Sen - Last Filed: 04/24/18 07:02> Vital Signs 04/24/18 04/24/18 04/24/18 03:18 04:31 07:13 Temperature 97.4 F L Pulse Rate 89 85 78 Respiratory 16 18 18 Rate Blood Pressure 124/70 135/61 114/80 O2 Sat by Pulse 92 L 94 L 98 Oximetry 04/24/18 07:30 Temperature Pulse Rate 77 Respiratory 18 Rate Blood Pressure 136/79 O2 Sat by Pulse 98 Oximetry Medical Decision Making - Lab Data Result diagrams: 04/24/18 03:28 04/24/18 03:28 - EKG Data -: EKG Interpreted by [facility] EKG shows normal: sinus rhythm, axis (Normal), intervals (MA interval 180 ms, normal. QRS duration 102 ms, normal. QTC 499 ms, prolonged.), QRS complexes ( Voltage criteria for LVH), ST-T waves Rate: normal (Rate proximal is 79 bpm) Interpretation: LVH <Keegan Sen - Last Filed: 04/24/18 07:02> - Lab Data Result diagrams: 04/24/18 03:28 04/24/18 03:28 <Nathan Ward - Last Filed: 04/24/18 08:33> - Medical Decision Making This 57-year-old man with known history of seizure disorder brought by [facility] after he had his second seizure today. He initially was postictal and not able to provide any additional history. As he did become alert he indicated that he was having abdominal pain and computed tomography scan is added onto his workup. The initial workup does reveal that his upper level is subtherapeutic and this was supplemented. In addition he had his blood sugar decrease again and therefore was given additional dextrose and is placed on D5 half-normal drip. ( Keegan Sen) I spoke with Dr. Coe and he agreed to admit the patient admitted the patient 23 observation (Nathan Ward) - Lab Data Lab Results 04/24/18 04/24/18 04/24/18 Range/Units 03:25 03:28 03:28 WBC 7.6 (3.8-10.6) k/uL RBC 4.43 (4.30-5.90) m/uL Hgb 13.9 (13.0-17.5) gm/dL Hct 42.8 (39.0-53.0) % MCV 96.5 (80.0-100.0) fL MCH 31.3 (25.0-35.0) pg MCHC 32.5 (31.0-37.0) g/dL RDW 13.7 (11.5-15.5) % Plt Count 192 (150-450) k/uL Neutrophils % 66 % Lymphocytes % 22 % Monocytes % 9 % Eosinophils % 2 % Basophils % 1 % Neutrophils # 5.0 (1.3-7.7) k/uL Lymphocytes # 1.7 (1.0-4.8) k/uL Monocytes # 0.7 (0-1.0) k/uL Eosinophils # 0.1 (0-0.7) k/uL Basophils # 0.0 (0-0.2) k/uL Sodium 140 (137-145) mmol/L Potassium 3.5 (3.5-5.1) mmol/L Chloride 112 H (98-107) mmol/L Carbon Dioxide 21 L (22-30) mmol/L Anion Gap 7 mmol/L BUN 24 H (9-20) mg/dL Creatinine 0.80 (0.66-1.25) mg/dL Est GFR (CKD-EPI)AfAm >90 (>60 ml/min/1.73 sqM) Est GFR (CKD-EPI)NonAf >90 (>60 ml/min/1.73 sqM) Glucose 78 (74-99) mg/dL POC Glucose (mg/dL) 81 (75-99) mg/dL POC Glu Maintenance Technician ID Arft, Matt Calcium 8.8 (8.4-10.2) mg/dL Total Bilirubin 0.4 (0.2-1.3) mg/dL AST 23 (17-59) U/L ALT 25 (21-72) U/L Alkaline Phosphatase 71 (38-126) U/L Total Protein 6.4 (6.3-8.2) g/dL Albumin 3.4 L (3.5-5.0) g/dL Urine Color Urine Appearance (Clear) Urine pH (5.0-8.0) Ur Specific [place] (1.001-1.035) Urine Protein (Negative) Urine Glucose (UA) (Negative) Urine Ketones (Negative) Urine Blood (Negative) Urine Nitrite (Negative) Urine Bilirubin (Negative) Urine Urobilinogen (<2.0) mg/dL Ur Leukocyte Esterase (Negative) Urine RBC (0-5) /hpf Urine WBC (0-5) /hpf Ur Squamous Epith Cells (0-4) /hpf Urine Mucus (None) /hpf Urine Opiates Screen (NotDetected) Ur Oxycodone Screen (NotDetected) Urine Methadone Screen (NotDetected) Ur Propoxyphene Screen (NotDetected) Ur Barbiturates Screen (NotDetected) Valproic Acid 33.1 ug/mL U Tricyclic Antidepress (NotDetected) Ur Phencyclidine Scrn (NotDetected) Ur Amphetamines Screen (NotDetected) U Methamphetamines Scrn (NotDetected) U Benzodiazepines Scrn (NotDetected) Urine Cocaine Screen (NotDetected) U Marijuana (THC) Screen (NotDetected) Serum Alcohol <10 mg/dL 04/24/18 04/24/18 04/24/18 Range/Units 04:10 04:46 06:09 WBC (3.8-10.6) k/uL RBC (4.30-5.90) m/uL Hgb (13.0-17.5) gm/dL Hct (39.0-53.0) % MCV (80.0-100.0) fL MCH (25.0-35.0) pg MCHC (31.0-37.0) g/dL RDW (11.5-15.5) % Plt Count (150-450) k/uL Neutrophils % % Lymphocytes % % Monocytes % % Eosinophils % % Basophils % % Neutrophils # (1.3-7.7) k/uL Lymphocytes # (1.0-4.8) k/uL Monocytes # (0-1.0) k/uL Eosinophils # (0-0.7) k/uL Basophils # (0-0.2) k/uL Sodium (137-145) mmol/L Potassium (3.5-5.1) mmol/L Chloride (98-107) mmol/L Carbon Dioxide (22-30) mmol/L Anion Gap mmol/L BUN (9-20) mg/dL Creatinine (0.66-1.25) mg/dL Est GFR (CKD-EPI)AfAm (>60 ml/min/1.73 sqM) Est GFR (CKD-EPI)NonAf (>60 ml/min/1.73 sqM) Glucose (74-99) mg/dL POC Glucose (mg/dL) 110 H 30 L (75-99) mg/dL POC Glu Maintenance Technician ID Alex, Melany Alex, Melany Calcium (8.4-10.2) mg/dL Total Bilirubin (0.2-1.3) mg/dL AST (17-59) U/L ALT (21-72) U/L Alkaline Phosphatase (38-126) U/L Total Protein (6.3-8.2) g/dL Albumin (3.5-5.0) g/dL Urine Color Yellow Urine Appearance Clear (Clear) Urine pH 5.5 (5.0-8.0) Ur Specific [place] 1.017 (1.001-1.035) Urine Protein Trace H (Negative) Urine Glucose (UA) Negative (Negative) Urine Ketones Negative (Negative) Urine Blood Negative (Negative) Urine Nitrite Negative (Negative) Urine Bilirubin Negative (Negative) Urine Urobilinogen <2.0 (<2.0) mg/dL Ur Leukocyte Esterase Trace H (Negative) Urine RBC <1 (0-5) /hpf Urine WBC 4 (0-5) /hpf Ur Squamous Epith Cells <1 (0-4) /hpf Urine Mucus Rare H (None) /hpf Urine Opiates Screen Not Detected (NotDetected) Ur Oxycodone Screen Not Detected (NotDetected) Urine Methadone Screen Not Detected (NotDetected) Ur Propoxyphene Screen Not Detected (NotDetected) Ur Barbiturates Screen Not Detected (NotDetected) Valproic Acid ug/mL U Tricyclic Antidepress Not Detected (NotDetected) Ur Phencyclidine Scrn Not Detected (NotDetected) Ur Amphetamines Screen Not Detected (NotDetected) U Methamphetamines Scrn Not Detected (NotDetected) U Benzodiazepines Scrn Detected H (NotDetected) Urine Cocaine Screen Not Detected (NotDetected) U Marijuana (THC) Screen Not Detected (NotDetected) Serum Alcohol mg/dL 04/24/18 04/24/18 04/24/18 Range/Units 06:10 06:52 07:32 WBC (3.8-10.6) k/uL RBC (4.30-5.90) m/uL Hgb (13.0-17.5) gm/dL Hct (39.0-53.0) % MCV (80.0-100.0) fL MCH (25.0-35.0) pg MCHC (31.0-37.0) g/dL RDW (11.5-15.5) % Plt Count (150-450) k/uL Neutrophils % % Lymphocytes % % Monocytes % % Eosinophils % % Basophils % % Neutrophils # (1.3-7.7) k/uL Lymphocytes # (1.0-4.8) k/uL Monocytes # (0-1.0) k/uL Eosinophils # (0-0.7) k/uL Basophils # (0-0.2) k/uL Sodium (137-145) mmol/L Potassium (3.5-5.1) mmol/L Chloride (98-107) mmol/L Carbon Dioxide (22-30) mmol/L Anion Gap mmol/L BUN (9-20) mg/dL Creatinine (0.66-1.25) mg/dL Est GFR (CKD-EPI)AfAm (>60 ml/min/1.73 sqM) Est GFR (CKD-EPI)NonAf (>60 ml/min/1.73 sqM) Glucose (74-99) mg/dL POC Glucose (mg/dL) 29 L 76 44 L (75-99) mg/dL POC Glu Maintenance Technician Melany De La Cruz, Jessica Ibanez Calcium (8.4-10.2) mg/dL Total Bilirubin (0.2-1.3) mg/dL AST (17-59) U/L ALT (21-72) U/L Alkaline Phosphatase (38-126) U/L Total Protein (6.3-8.2) g/dL Albumin (3.5-5.0) g/dL Urine Color Urine Appearance (Clear) Urine pH (5.0-8.0) Ur Specific [place] (1.001-1.035) Urine Protein (Negative) Urine Glucose (UA) (Negative) Urine Ketones (Negative) Urine Blood (Negative) Urine Nitrite (Negative) Urine Bilirubin (Negative) Urine Urobilinogen (<2.0) mg/dL Ur Leukocyte Esterase (Negative) Urine RBC (0-5) /hpf Urine WBC (0-5) /hpf Ur Squamous Epith Cells (0-4) /hpf Urine Mucus (None) /hpf Urine Opiates Screen (NotDetected) Ur Oxycodone Screen (NotDetected) Urine Methadone Screen (NotDetected) Ur Propoxyphene Screen (NotDetected) Ur Barbiturates Screen (NotDetected) Valproic Acid ug/mL U Tricyclic Antidepress (NotDetected) Ur Phencyclidine Scrn (NotDetected) Ur Amphetamines Screen (NotDetected) U Methamphetamines Scrn (NotDetected) U Benzodiazepines Scrn (NotDetected) Urine Cocaine Screen (NotDetected) U Marijuana (THC) Screen (NotDetected) Serum Alcohol mg/dL 04/24/18 Range/Units 07:52 WBC (3.8-10.6) k/uL RBC (4.30-5.90) m/uL Hgb (13.0-17.5) gm/dL Hct (39.0-53.0) % MCV (80.0-100.0) fL MCH (25.0-35.0) pg MCHC (31.0-37.0) g/dL RDW (11.5-15.5) % Plt Count (150-450) k/uL Neutrophils % % Lymphocytes % % Monocytes % % Eosinophils % % Basophils % % Neutrophils # (1.3-7.7) k/uL Lymphocytes # (1.0-4.8) k/uL Monocytes # (0-1.0) k/uL Eosinophils # (0-0.7) k/uL Basophils # (0-0.2) k/uL Sodium (137-145) mmol/L Potassium (3.5-5.1) mmol/L Chloride (98-107) mmol/L Carbon Dioxide (22-30) mmol/L Anion Gap mmol/L BUN (9-20) mg/dL Creatinine (0.66-1.25) mg/dL Est GFR (CKD-EPI)AfAm (>60 ml/min/1.73 sqM) Est GFR (CKD-EPI)NonAf (>60 ml/min/1.73 sqM) Glucose (74-99) mg/dL POC Glucose (mg/dL) 106 H (75-99) mg/dL POC Glu Maintenance Technician ID Jessica Lyles Calcium (8.4-10.2) mg/dL Total Bilirubin (0.2-1.3) mg/dL AST (17-59) U/L ALT (21-72) U/L Alkaline Phosphatase (38-126) U/L Total Protein (6.3-8.2) g/dL Albumin (3.5-5.0) g/dL Urine Color Urine Appearance (Clear) Urine pH (5.0-8.0) Ur Specific [place] (1.001-1.035) Urine Protein (Negative) Urine Glucose (UA) (Negative) Urine Ketones (Negative) Urine Blood (Negative) Urine Nitrite (Negative) Urine Bilirubin (Negative) Urine Urobilinogen (<2.0) mg/dL Ur Leukocyte Esterase (Negative) Urine RBC (0-5) /hpf Urine WBC (0-5) /hpf Ur Squamous Epith Cells (0-4) /hpf Urine Mucus (None) /hpf Urine Opiates Screen (NotDetected) Ur Oxycodone Screen (NotDetected) Urine Methadone Screen (NotDetected) Ur Propoxyphene Screen (NotDetected) Ur Barbiturates Screen (NotDetected) Valproic Acid ug/mL U Tricyclic Antidepress (NotDetected) Ur Phencyclidine Scrn (NotDetected) Ur Amphetamines Screen (NotDetected) U Methamphetamines Scrn (NotDetected) U Benzodiazepines Scrn (NotDetected) Urine Cocaine Screen (NotDetected) U Marijuana (THC) Screen (NotDetected) Serum Alcohol mg/dL Disposition <Keegan Sen - Last Filed: 04/24/18 07:02> Time of Disposition: 08:33 <Nathan Ward - Last Filed: 04/24/18 08:33> Clinical Impression: Generalized seizure, Hypoglycemia Disposition: ADMITTED IP TO THIS HOSP Referrals: Marck Bartholomew DO [Primary Care Provider] - 1-2 days
--- NOTE | 2018-04-24 07:07 | CT ---
EXAMINATION TYPE: CT abdomen pelvis w con DATE OF EXAM: 04/24/2018 COMPARISON: 05/25/2017 HISTORY: Pain CT DLP: 2594.5 mGycm Automated exposure control for dose reduction was used. TECHNIQUE: Helical acquisition of images was performed from the lung bases through the pelvis. CONTRAST: Performed without Oral Contrast and with IV Contrast, patient injected with 100 mL of Isovue 300. FINDINGS: Lung bases show subsegmental atelectasis. There is no pleural effusion. Heart size is normal. Liver and spleen appear normal. Bile ducts are not dilated. There is no pancreatic mass. There are cl ips from cholecystectomy. There is no adrenal mass. Kidneys show satisfactory contrast opacification. There is no hydronephrosi s. Bladder distends smoothly. There is a 3 cm rounded fluid density in the pelvis posteriorly on the right side that is probably bladder diverticulum. There is prosthetic calcification. There is no asci trae. There are clips probably from appendectomy. Appendix is not seen. I see no intestinal wall thick ening. There is no sign of free air. The lumbar spine is intact. There is 2 cm diverticulum on the do me of the urinary bladder. IMPRESSION: BLADDER DIVERTICULA. NO SIGN OF ACUTE ABDOMEN AND PELVIS. MILD SUBSEGMENTAL ATELECTASIS AT THE LUNG B ASES SIMILAR TO LAST EXAM.
[2018-04-24 08:04] LABS: Glucose,Whole Blood 44 mg/dL (75-99)
[2018-04-24 08:04] LABS: Glucose,Whole Blood 106 mg/dL (75-99)
[2018-04-24 09:02] LABS: Glucose,Whole Blood 47 mg/dL (75-99)
[2018-04-24] MEDS ORDERED: GLUCAGON 1 MG/ML VIAL SQ STA (11:57)
[2018-04-24 12:17] LABS: Glucose,Whole Blood 73 mg/dL (75-99)
[2018-04-24 12:17] LABS: Glucose,Whole Blood 64 mg/dL (75-99)
[2018-04-24 12:17] LABS: Glucose,Whole Blood 86 mg/dL (75-99)
--- NOTE | 2018-04-24 13:06 | XR ---
EXAMINATION TYPE: XR tibia fibula RT DATE OF EXAM: 04/24/2018 COMPARISON: NONE HISTORY: Pain TECHNIQUE: Two views are submitted. FINDINGS: The osseous structures are intact. The joint spaces are preserved. Calcaneal spurs are noted and th ere is suggestion of possible previous surgery involving the fifth metatarsal. Corticated density valeri ng the lateral malleolus is chronic. IMPRESSION: 1. No acute osseous abnormality.
--- NOTE | 2018-04-24 13:13 | XR ---
EXAMINATION TYPE: XR knee complete RT DATE OF EXAM: 04/24/2018 COMPARISON: NONE HISTORY: Pain TECHNIQUE: Four views are submitted. FINDINGS: There is a lucency involving the neck to the fibula suspicious for hairline fracture. Mild narrowing the medial compartment knee noted. Narrowing of the patellofemoral joint noted. Vascular calcificatio n seen.. Osseous structures are intact. No acute fracture seen. IMPRESSION: 1. Hairline fracture mildly displaced neck of the proximal fibula.
[2018-04-24] MEDS ORDERED: HYDROcodone/APAP 5-325MG 1 EACH TAB PO PRN (13:40)
[2018-04-24 13:53] LABS: Glucose,Whole Blood 109 mg/dL (75-99)
[2018-04-24 13:56] LABS: Glucose,Whole Blood 184 mg/dL (75-99)
[2018-04-24 14:27] LABS: Glucose,Whole Blood 102 mg/dL (75-99)
[2018-04-24] MEDS: IBUPROFEN 600 MG TAB PO PRN (14:39)
[2018-04-24] MEDS: DICYCLOMINE 10 MG CAP PO SCH ×2 (14:39→16:16)
[2018-04-24 15:09] LABS: Glucose,Whole Blood 78 mg/dL (75-99)
[2018-04-24 16:22] LABS: Glucose,Whole Blood 105 mg/dL (75-99)
--- NOTE | 2018-04-24 16:22 | P.HPIM ---
History of Present Illness H&P Date: 04/24/18 Chief Complaint: Syncope, seizure This is a 57-year-old male patient of Dr. Bartholomew with past medical history of diabetes for 16 years, GERD, hypertension, seizure disorder, schizoaffective disorder. Patient gives history that he fell down and had possible seizure at home. He was standing in the kitchen and he does not know what happened from there. He did lose control of his bowels. He apparently was on the floor for 20-30 minutes and that his roommates called EMS. He is complaining of pain to the right lower leg and knee area. He gives history that he has had trouble with low blood sugars for the last couple of days but did not call his physician and has not made any medication changes. He is normally on Lantus 45 units at bedtime. He states his last seizure was 2 years ago. He is complaining of some mid abdominal pain. Patient came into [facility] emergency center for evaluation. He underwent CT of the abdomen and pelvis that showed bladder diverticula. No sign of acute abdomen and pelvis. Mild subsegmental atelectasis at the lung bases similar to last exam. Depakote level was 33.1, urine drug screen detected benzodiazepines ago was less than 10. Urinalysis is negative for infection. Albumin 3.4. BUN 24 and creatinine 0.8. Upon presentation, blood sugar was 81 but did dip down to 29. Most recently at 64. He has received D50 2-1/2 A and we have just ordered glucagon. He is maintained on dextrose 5% half-normal saline. Tib-fib x-ray shows suggestive mild late displaced hairline fracture involving the neck of the fibula. X-ray also showed hairline fracture and a mildly displaced the neck of the proximal fibula but osseous structures of the knee are intact. No acute fracture. Consult in place for neurology, orthopedics. Past Medical History Past Medical History: Cancer, Heart Failure, Diabetes Mellitus, GERD/Reflux, Hypertension, Neurologic Disorder, Seizure Disorder Additional Past Medical History / Comment(s): LAST SEIZURE 1 MONTH AGO., HOSPITALIZED 05/26/17-05/27/17 FOR HEMATURIA, DIFFICULTY URINATING AND DIZZINESS. , HX OF FALLING DUE TO VERTIGO-USING CANE AND WALKER, LIMPS. , ENLARGED PROSTATE. History of Any Multi-Drug Resistant Organisms: MRSA Date of last positivie culture/infection: 2014 MDRO Source:: Sore on right leg Past Surgical History: Appendectomy, Cholecystectomy, Orthopedic Surgery Past Anesthesia/Blood Transfusion Reactions: No Reported Reaction Past Psychological History: Bipolar, Depression, Schizoaffective Disorder Smoking Status: Current every day smoker Past Alcohol Use History: None Reported Additional Past Alcohol Use History / Comment(s): Patient is a smoker of 1/ 2PPD. He is , on disability. Past Drug Use History: None Reported - Past Family History Father Family Medical History: Cancer, Diabetes Mellitus Additional Family Medical History / Comment(s): colon cancer Mother Family Medical History: No Reported History Brother(s) Family Medical History: Cancer, CVA/TIA Additional Family Medical History / Comment(s): PROSTATE CANCER Medications and Allergies Home Medications Medication Instructions Recorded Confirmed Type Divalproex ER [Depakote ER] 1,000 mg PO DAILY 04/28/17 04/24/18 History Divalproex ER [Depakote ER] 1,500 mg PO HS 04/28/17 04/24/18 History FLUoxetine HCL [PROzac] 40 mg PO DAILY 04/28/17 04/24/18 History Famotidine [Pepcid] 20 mg PO DAILY 04/28/17 04/24/18 History Insulin Glargine [Lantus] 45 unit SQ 04/28/17 04/24/18 History Lisinopril [Zestril] 10 mg PO DAILY 04/28/17 04/24/18 History metFORMIN HCL [Glucophage] 1,000 mg PO BID 04/28/17 04/24/18 History Dicyclomine [Bentyl] 10 mg PO AC-TID 04/24/18 04/24/18 History Escitalopram Oxalate [Lexapro] 10 mg PO DAILY 04/24/18 04/24/18 History Ibuprofen [Motrin] 800 mg PO TID PRN 04/24/18 04/24/18 History Tamsulosin [Flomax] 0.4 mg PO DAILY 04/24/18 04/24/18 History Ziprasidone [Geodon] 80 mg PO BID 04/24/18 04/24/18 History Allergies Allergy/AdvReac Type Severity Reaction Status Date / Time codeine Allergy Swelling Verified 04/24/18 07:59 morphine Allergy Swelling Verified 04/24/18 07:59 Penicillins Allergy Swelling Verified 04/24/18 07:59 Sulfa (Sulfonamide Allergy Unknown Verified 04/24/18 07:59 Antibiotics) CHLORINE Allergy Unknown Uncoded 04/24/18 07:59 Physical Exam Vitals: Vital Signs Temp Pulse Resp BP Pulse Ox 04/24/18 09:00 80 18 156/74 98 04/24/18 07:30 77 18 136/79 98 04/24/18 07:13 78 18 114/80 98 04/24/18 04:31 85 18 135/61 94 L 04/24/18 03:18 97.4 F L 89 16 124/70 92 L Intake and Output 04/23/18 04/24/18 04/24/18 22:59 06:59 14:59 Other: Weight 141.974 kg General appearance: average body habitus, cooperative, mild distress, morbidly obese - EENT Eyes: EOMI, PERRLA, no photophobia, no ptosis ENT: hearing grossly normal, normal oropharynx Ears: negative: bulging - Neck Neck: no lymphadenopathy, no rigidity Carotids: bilateral: upstroke normal Thyroid: negative: normal size - Respiratory Respiratory: bilateral: CTA, negative: rales, rhonchi, wheezing - Cardiovascular Rhythm: regular Heart sounds: normal: S1, S2 Abnormal Heart Sounds: no systolic murmur, no diastolic murmur - Gastrointestinal General gastrointestinal: decreased bowel sounds, soft, tenderness (diffuse tenderness, most prominant in the right lower quadrant) Localized gastrointestinal: tender: diffuse - Integumentary Integumentary: no pale - Neurologic Motor function grossly intact No sensory deficit Past pointing b/l present on finger to nose testing proprioception normal Neurologic: CNII-XII intact (no focal deficit) - Musculoskeletal Musculoskeletal: strength equal bilaterally, tenderness to palpation right lower leg - Psychiatric Psychiatric: A&O x's 3, appropriate affect Results CBC & Chem 7: 04/24/18 03:28 04/24/18 03:28 Labs: Abnormal Lab Results - Last 24 Hours (Table) 04/24/18 04/24/18 04/24/18 Range/Units 03:28 04:10 04:46 Chloride 112 H (98-107) mmol/L Carbon Dioxide 21 L (22-30) mmol/L BUN 24 H (9-20) mg/dL POC Glucose (mg/dL) 110 H (75-99) mg/dL Albumin 3.4 L (3.5-5.0) g/dL Urine Protein Trace H (Negative) Ur Leukocyte Esterase Trace H (Negative) Urine Mucus Rare H (None) /hpf U Benzodiazepines Scrn Detected H (NotDetected) 04/24/18 04/24/18 04/24/18 Range/Units 06:09 06:10 07:32 Chloride (98-107) mmol/L Carbon Dioxide (22-30) mmol/L BUN (9-20) mg/dL POC Glucose (mg/dL) 30 L 29 L 44 L (75-99) mg/dL Albumin (3.5-5.0) g/dL Urine Protein (Negative) Ur Leukocyte Esterase (Negative) Urine Mucus (None) /hpf U Benzodiazepines Scrn (NotDetected) 04/24/18 04/24/18 Range/Units 07:52 08:56 Chloride (98-107) mmol/L Carbon Dioxide (22-30) mmol/L BUN (9-20) mg/dL POC Glucose (mg/dL) 106 H 47 L (75-99) mg/dL Albumin (3.5-5.0) g/dL Urine Protein (Negative) Ur Leukocyte Esterase (Negative) Urine Mucus (None) /hpf U Benzodiazepines Scrn (NotDetected) Assessment and Plan Plan: 1. Syncope possibly due to seizure in a patient with history of seizures but most likely due to hypoglycemia. Consult neurology. Continue Depakote 1000 mg daily and 1500 at night. Seizure precautions. 2. Severe persistent hypoglycemia status post IV 50% dextrose and glucagon. Continue IVF D5 1/2 NS at 100 cc/hour. Continue hourly CBG. Hold home dose of Lantus, metformin. 3. Diabetes mellitus type 2 uncontrolled with hypoglycemia. Hold Lantus and metformin. Check A1C. 4. Right fibula fracture. Consult Dr Feldman. 5. Vertigo likely secondary to mastoiditis. Continue meclizine for vertigo 6. Hypertension. Continue lisinopril 10 mg daily 7. History of seizure disorder. Continue current dose of Depakote. Neurology consult. 8. GERD. Continue Pepcid 20 mg by mouth daily 9. Schizoaffective disorder. Continue fluoxetine 40 mg by mouth daily, Lexapro 10 mg daily, Geodon 80 mg twice daily. 10. DVT prophylaxis. Heparin SQ. 11. GI prophylaxis - continue Pepcid CODE STATUS full code Patient will be admitted to the hospital for a minimum of 2 night stay. Impression and plan of care have been directed as dictated by the signing physician. Elsie Harris nurse practitioner acting as scribe for signing physician.
[2018-04-24 17:22] LABS: Glucose,Whole Blood 127 mg/dL (75-99)
[2018-04-24 17:41] LABS: Hemoglobin A1C 5.3 % (4.0-6.0)
[2018-04-24 18:04] LABS: Glucose,Whole Blood 124 mg/dL (75-99)
[2018-04-24 19:31] LABS: Glucose,Whole Blood 130 mg/dL (75-99)
[2018-04-24] MEDS ORDERED: DIVALPROEX ER 500 MG TAB.ER.24H PO SCH (21:00)
[2018-04-24] MEDS ORDERED: traMADol 50 MG TAB PO PRN (21:05)
[2018-04-24 21:26] LABS: Glucose,Whole Blood 128 mg/dL (75-99)
[2018-04-24] MEDS: ZIPRASIDONE 80 MG CAP PO SCH (21:53)
[2018-04-24] MEDS: DIVALPROEX ER 500 MG TAB.ER.24H PO SCH (21:53)
[2018-04-24] MEDS: HEPARIN SODIUM,PORCINE 5,000 UNIT/ML 1 ML VIAL SQ SCH (23:42)
[2018-04-24 23:43] LABS: Glucose,Whole Blood 126 mg/dL (75-99)
[2018-04-25 01:51] LABS: Glucose,Whole Blood 132 mg/dL (75-99)
[2018-04-25] MEDS ORDERED: DEXTROSE 5%-0.45% NACL 1,000 ML IV SCH (02:15)
[2018-04-25] MEDS: IBUPROFEN 600 MG TAB PO PRN ×2 (03:56→16:16)
[2018-04-25 06:37] LABS: Glucose,Whole Blood 95 mg/dL (75-99)
--- NOTE | 2018-04-25 08:15 | CONS ---
CONSULTATION DATE OF CONSULTATION: 04/24/2018. CHIEF COMPLAINT: Seizures. HISTORY OF PRESENT ILLNESS: Mr. Love is a pleasant 57-year-old, male, who is being evaluated today on 04/24/2018 by the neurology service per the request of Dr. Coe for seizures. The patient was brought into [facility] Emergency Room after he had a breakthrough seizure at home. The patient does not recall the event. He states that he remembers being in his kitchen and the next thing he remembers is being in the hospital. He states that he has had a history of seizures for approximately 12 years now. He is currently on Depakote ER 1000 mg in the morning and 1500 mg at night. He denies missing any doses. In the emergency room, his serum Depakote level was found to be subtherapeutic at 33.1. His CBC was normal. His comprehensive metabolic profile was normal except for slightly elevated BUN at 24. His urinalysis showed 4 WBCs with trace leukocyte esterase. A urine drug screen was done which was positive for benzodiazepine. At the time of my evaluation, the patient is resting in his bed and appears to be in no acute distress. He is back to baseline at this time. He denies any neurological complaints except he is complaining of right leg pain. An x-ray was done, which did show a fibular fracture. Orthopedic Surgery has been consulted. Of note, in the emergency room, the patient is an chief blood sugar was initially normal at 81. On another check it was down to 29 and he had to be given doses of D50. He does have history of diabetes and is on insulin at home. PAST MEDICAL HISTORY: Seizure disorder, diabetes, history of MRSA, heart failure, gastroesophageal reflux disease, hypertension, cancer, history of cholecystectomy, appendectomy, orthopedic surgeries, history of depression, bipolar disorder, schizoaffective disorder. SOCIAL HISTORY: The patient is a current every day smoker. He denies any alcohol or drug use. FAMILY HISTORY: Positive for cancer, strokes, diabetes. HOME MEDICATIONS: Reviewed in the chart. ALLERGIES: Codeine, morphine, penicillin, sulfa drugs, chlorine. REVIEW OF SYSTEMS: CONSTITUTIONAL: Negative. EYES: Negative. ENT: Negative. CARDIOVASCULAR: Negative. RESPIRATORY: Negative. NEUROLOGICAL: As mentioned above. GASTROINTESTINAL: Positive for occasional heartburn. GENITOURINARY: Negative. MUSCULOSKELETAL: As mentioned above. DERMATOLOGICAL: Negative. ENDOCRINE: As mentioned above. PHYSICAL EXAM: Vital signs show a temperature of 97.4, pulse 77, respiration 18, blood pressure 136/79. GENERAL APPEARANCE: The patient is an obese male who appears to be in no acute distress. HEENT: Normocephalic, atraumatic, no facial asymmetry is seen. NECK: Supple with no masses felt. CARDIOVASCULAR: Regular rate and rhythm. ABDOMEN: Nontender, nondistended. EXTREMITIES: Showed mild edema with no clubbing seen. Bruising is seen on the right leg. NEUROLOGICAL: The patient is alert aware and oriented x3. Speech and language are normal. Strength is full in all 4 extremities but the exam was limited in the right lower extremity due to pain. Sensory exam showed diminished light touch sensation in bilateral distal lower extremities. No pronator drift is seen. No facial asymmetry is noticed on cranial nerve testing. No tremors are noticed. IMPRESSION: 1. Seizure disorder, uncontrolled, generalized tonic-clonic type. 2. Subtherapeutic Depakote levels. 3. Right fibular fracture. 4. Episode of hypoglycemia. RECOMMENDATION: The patient did have a breakthrough generalized tonic colonic seizure as mentioned above. Although it is unclear if the patient had a hypoglycemic episode at home which may have brought on the breakthrough seizure, the fact that his Depakote level is subtherapeutic, he may have had normal blood sugars at home. I do recommend adjusting his home medications for his diabetes. As for his subtherapeutic Depakote levels, I will increase his maintenance dose to Depakote ER 1500 mg b.i.d. A repeat Depakote level should be checked in 3-5 days in the outpatient setting. I will order an EEG. The patient states that he recently had an MRI of the brain done at [facility]. I will request the report to be placed on the chart. Continue neuro checks. I will continue to follow with you. Further recommendations to follow. Thank you for allowing me to participate in the care of your patient. If you have any questions, please feel free to contact me. FANY / BRANDON: [phone] /
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
[2018-04-25 09:00] LABS: Anion Gap 5 mmol/L; Blood Urea Nitrogen 16 mg/dL (9-20); Calcium 8.6 mg/dL (8.4-10.2); Carbon Dioxide 22 mmol/L (22-30); Chloride 111 mmol/L (98-107); Glucose 85 mg/dL (74-99); Potassium 4.5 mmol/L (3.5-5.1); Sodium 138 mmol/L (137-145)
[2018-04-25] MEDS ORDERED: DIVALPROEX ER 500 MG TAB.ER.24H PO SCH (09:00)
[2018-04-25] MEDS: FLUoxetine HCL 20 MG CAP PO SCH (10:56)
[2018-04-25] MEDS: FAMOTIDINE 20 MG TAB PO SCH (10:56)
[2018-04-25] MEDS: TAMSULOSIN 0.4 MG CAP.ER.24H PO SCH (10:56)
[2018-04-25] MEDS: ESCITALOPRAM 10 MG TAB PO SCH (10:56)
[2018-04-25] MEDS: HEPARIN SODIUM,PORCINE 5,000 UNIT/ML 1 ML VIAL SQ SCH ×2 (10:56→16:17)
[2018-04-25] MEDS: DIVALPROEX ER 500 MG TAB.ER.24H PO SCH ×2 (10:56→21:11)
[2018-04-25] MEDS: LISINOPRIL 10 MG TAB PO SCH (10:56)
[2018-04-25] MEDS: ZIPRASIDONE 80 MG CAP PO SCH ×2 (10:57→21:12)
[2018-04-25] MEDS: DICYCLOMINE 10 MG CAP PO SCH ×3 (10:57→16:17)
--- NOTE | 2018-04-25 13:50 | P.PN ---
Subjective Progress Note Date: 04/25/18 This is a 57-year-old male patient of Dr. Bartholomew with past medical history of diabetes for 16 years, GERD, hypertension, seizure disorder, schizoaffective disorder. Patient gives history that he fell down and had possible seizure at home. He was standing in the kitchen and he does not know what happened from there. He did lose control of his bowels. He apparently was on the floor for 20-30 minutes and that his roommates called EMS. He is complaining of pain to the right lower leg and knee area. He gives history that he has had trouble with low blood sugars for the last couple of days but did not call his physician and has not made any medication changes. He is normally on Lantus 45 units at bedtime. He states his last seizure was 2 years ago. He is complaining of some mid abdominal pain. Patient came into [facility] emergency center for evaluation. He underwent CT of the abdomen and pelvis that showed bladder diverticula. No sign of acute abdomen and pelvis. Mild subsegmental atelectasis at the lung bases similar to last exam. Depakote level was 33.1, urine drug screen detected benzodiazepines ago was less than 10. Urinalysis is negative for infection. Albumin 3.4. BUN 24 and creatinine 0.8. Upon presentation, blood sugar was 81 but did dip down to 29. Most recently at 64. He has received D50 2-1/2 A and we have just ordered glucagon. He is maintained on dextrose 5% half-normal saline. Tib-fib x-ray shows suggestive mild late displaced hairline fracture involving the neck of the fibula. X-ray also showed hairline fracture and a mildly displaced the neck of the proximal fibula but osseous structures of the knee are intact. No acute fracture. Consult in place for neurology, orthopedics. 04/25: Blood sugars are running 95-132. Hemoglobin A1c is 5.3. We will plan to discontinue IV fluids of dextrose half-normal saline. Continue Humalog scale only. If blood sugars are improving by morning, metformin will be resumed. Patient has been instructed to stay off Lantus at this point. Patient's daughter who is the power of district attorney did call and speak with nursing and stated that patient has not had enough food at home and the swelling is only eating 1 meal and has hypoglycemia. She is asking for the patient to go to [facility]. Patient really does not want to go to [facility] or extended care facility. PT and OT will be added in. Patient has been seen by orthopedics and premium equalizer boot has been ordered. Patient has been seen by neurology. Dr. Smith has requested MRI report from [facility]. EEG has been done and report is pending. He has increased Depakote ER to 1500 mg twice daily and plan for repeat Depakote level in 3-5 days. Plan is to monitor blood sugars overnight and plan for discharge tomorrow. Objective - Vital Signs Vital signs: Vital Signs Temp 98 F 04/25/18 13:04 Pulse 71 04/25/18 13:04 Resp 20 04/25/18 13:04 BP 144/86 04/25/18 13:04 Pulse Ox 96 04/25/18 13:04 Intake & Output 04/24/18 04/25/18 04/25/18 18:59 06:59 18:59 Intake Total 600 Output Total 800 Balance -200 Intake: Intake, IV Titration 600 Amount Dextrose 5%-0.45% NaCl 1, 600 000 ml @ 75 mls/hr IV . [id number] ONE Rx#:[id number] Output: Urine 800 Other: Voiding Method Toilet Urinal Urinal # Voids 2 # Bowel Movements 1 - Exam General appearance: average body habitus, cooperative, mild distress, morbidly obese - EENT Eyes: EOMI, PERRLA, no photophobia, no ptosis ENT: hearing grossly normal, normal oropharynx Ears: negative: bulging - Neck Neck: no lymphadenopathy, no rigidity Carotids: bilateral: upstroke normal Thyroid: negative: normal size - Respiratory Respiratory: bilateral: CTA, negative: rales, rhonchi, wheezing - Cardiovascular Rhythm: regular Heart sounds: normal: S1, S2 Abnormal Heart Sounds: no systolic murmur, no diastolic murmur - Gastrointestinal General gastrointestinal: decreased bowel sounds, soft, tenderness (diffuse tenderness, most prominant in the right lower quadrant) Localized gastrointestinal: tender: diffuse - Integumentary Integumentary: no pale - Neurologic Motor function grossly intact No sensory deficit Past pointing b/l present on finger to nose testing proprioception normal Neurologic: CNII-XII intact (no focal deficit) - Musculoskeletal Musculoskeletal: strength equal bilaterally, tenderness to palpation right lower leg - Psychiatric Psychiatric: A&O x's 3, appropriate affect - Labs CBC & Chem 7: 04/24/18 03:28 04/25/18 07:26 Labs: Abnormal Lab Results - Last 24 Hours (Table) 04/24/18 04/24/18 04/24/18 Range/Units 12:30 13:36 14:06 Chloride (98-107) mmol/L POC Glucose (mg/dL) 109 H 184 H 102 H (75-99) mg/dL 04/24/18 04/24/18 04/24/18 Range/Units 16:01 17:01 18:02 Chloride (98-107) mmol/L POC Glucose (mg/dL) 105 H 127 H 124 H (75-99) mg/dL 04/24/18 04/24/18 04/24/18 Range/Units 19:04 21:25 23:41 Chloride (98-107) mmol/L POC Glucose (mg/dL) 130 H 128 H 126 H (75-99) mg/dL 04/25/18 04/25/18 Range/Units 01:49 07:26 Chloride 111 H (98-107) mmol/L POC Glucose (mg/dL) 132 H (75-99) mg/dL Assessment and Plan Plan: 1. Syncope possibly due to seizure in a patient with history of seizures likely due to hypoglycemia. Consult with Dr. Luis almanzar. Continue Depakote increased to 1500 twice daily. Seizure precautions. EEG 2. Severe persistent hypoglycemia status post IV 50% dextrose and glucagon. Discontinue IVF D5 1/2 NS. Continue ACHS CBG. Hold home dose of Lantus, metformin. 3. Diabetes mellitus type 2 uncontrolled with hypoglycemia. Hold Lantus and metformin. A1C is 5.3. IV fluids discontinued. 4. Right fibula fracture. Consult Dr Feldman. Premium equalizer boot ordered. Weightbearing as tolerated with food. Rest, ice and elevate. No plan for surgical intervention. Follow-up in 2 weeks. 5. Vertigo likely secondary to mastoiditis. Continue meclizine for vertigo 6. Hypertension. Continue lisinopril 10 mg daily 7. History of seizure disorder. Continue current dose of Depakote. Neurology consult. 8. GERD. Continue Pepcid 20 mg by mouth daily 9. Schizoaffective disorder. Continue fluoxetine 40 mg by mouth daily, Lexapro 10 mg daily, Geodon 80 mg twice daily. 10. DVT prophylaxis. Heparin SQ. 11. GI prophylaxis - continue Pepcid CODE STATUS full code Discharge plan: To be determined. PT and OT evaluations. Impression and plan of care have been directed as dictated by the signing physician. Elsie Harris nurse practitioner acting as scribe for signing physician.
[2018-04-25 16:37] LABS: Glucose,Whole Blood 117 mg/dL (75-99)
[2018-04-25 16:39] LABS: Glucose,Whole Blood 109 mg/dL (75-99)
--- NOTE | 2018-04-25 18:55 | P.PN ---
Subjective Progress Note Date: 04/25/18 Principal diagnosis: seizure Neurology is following on a 57-year-old male being evaluated followed for seizure. Patient was brought to the ED after having breakthrough seizure at home. Patient did not recall the event but remembers being in the kitchen just prior to the event. Patient has 12 year history of seizure with intermittent control using AED medication. Patient is currently on Depakote extended release 1000 mg in the morning and 1500 mg at night. He denies missing any doses. Depakote level on arrival was found to be subtherapeutic at 33.1. Urine drug screen is positive for benzodiazepines. patient had returned to baseline while in the ED. On contact today, patient was alert and oriented 3, no acute distress, resting in bed no family or visitors in the room. Nursing reports no neurological status changes or seizure activity in the last 24 hours. Objective - Vital Signs Vital signs: Vital Signs Temp 98 F 04/25/18 13:04 Pulse 71 04/25/18 13:04 Resp 20 04/25/18 13:04 BP 144/86 04/25/18 13:04 Pulse Ox 96 04/25/18 13:04 Intake & Output 04/24/18 04/25/18 04/25/18 18:59 06:59 18:59 Intake Total 600 Output Total 800 Balance -200 Intake: Intake, IV Titration 600 Amount Dextrose 5%-0.45% NaCl 1, 600 000 ml @ 75 mls/hr IV . [id number] ONE Rx#:[id number] Output: Urine 800 Other: Voiding Method Toilet Urinal Urinal # Voids 2 2 # Bowel Movements 1 - Exam General appearance: Alert & oriented x3, no apparent distress. Head: Atraumatic, normocephalic, normal inspection Eyes: Well appearance, PERRLA, EOMI. Absent scleral icterus, conjunctival injection, nystagmus, periorbital swelling. Ear, nose and throat: Normal exam, mucous membranes moist Neck: Normal inspection, absent tenderness, lymphadenopathy. Respiratory: No increased work of breathing Cardiovascular: Regular rate, rhythm GI/abdominal: No guarding Extremities: Full range of motion, normal capillary refill, no tenderness, pedal edema joint swelling, calf tenderness. Neurological: cranial nerves II through XII intact no lateralizing weakness no seizure activity noted on physical exam no pronator drift and no nystagmus. Left lower extremity: 5/5 Right lower extremity: 5/5 Left upper extremity: 5/5 Right upper extremity:5 /5 Sensation: Left lower extremity: normal Right lower extremity: normal Left upper extremity: normal Right upper extremity:normal Psychological: Mood and Affect appropriate for setting - Labs CBC & Chem 7: 04/24/18 03:28 04/25/18 07:26 Labs: Abnormal Lab Results - Last 24 Hours (Table) 04/24/18 04/24/18 04/24/18 Range/Units 19:04 21:25 23:41 Chloride (98-107) mmol/L POC Glucose (mg/dL) 130 H 128 H 126 H (75-99) mg/dL 04/25/18 04/25/18 04/25/18 Range/Units 01:49 07:26 11:07 Chloride 111 H (98-107) mmol/L POC Glucose (mg/dL) 132 H 117 H (75-99) mg/dL 04/25/18 Range/Units 16:14 Chloride (98-107) mmol/L POC Glucose (mg/dL) 109 H (75-99) mg/dL Assessment and Plan (1) Seizure Narrative/Plan: Patient does have a 12 year history of seizures. Patient has intermittent control with AED medication, Depakote as previously noted. Patient was previously noted to be subtherapeutic. Patient's Depakote dosing was increased to 1500 mg twice a day. We will repeat Depakote level in the outpatient setting in 3-5 days. Patient's EEG has been taken but not read. As noted, patient has remained symptom free for the last 24 hours. Current Visit: Yes Status: Acute Code(s): R56.9 - UNSPECIFIED CONVULSIONS SNOMED Code(s): 66009397 (2) Altered mental status Current Visit: Yes Status: Acute Code(s): R41.82 - ALTERED MENTAL STATUS, UNSPECIFIED SNOMED Code(s): 604803586 Plan: STATUS: Patient will be cleared for discharge from a neurological standpoint if patient's EEG is unremarkable. Patient to contact our office within 10 days for follow up. I have discussed the plan of care with the physician prior to implementation and he agrees with the plan as implemented.
--- NOTE | 2018-04-25 19:30 | EEG ---
ELECTROENCEPHALOGRAM REPORT DATE OF SERVICE: 04/25/2018 REASON FOR TESTING: Seizures. CURRENT ANTI-EPILEPTIC MEDICATIONS: Depakote. DESCRIPTION OF THE PROCEDURE: This EEG was performed using a 21-channel digital electroencephalograph, following international 10-20 system. DESCRIPTION OF THE RECORDING: From the beginning of the tracing, and with the patient's eyes closed, the background rhythm was mostly consisting of 8 Hz alpha frequency in the posterior occipital leads. No obvious asymmetry is seen. Frequent muscle artifacts are seen throughout the tracing. Occasional movement artifacts are seen. Photic stimulation was performed with no driving response seen. No pathological waves were elicited. More frequent muscle artifacts are seen later in the tracing. Hyperventilation was not performed. The patient remains awake throughout the tracing. No obvious epileptiform discharges were seen. His EKG lead showed a regular rate and rhythm. INTERPRETATION: This awake EEG is limited due to the frequency of muscle artifacts seen. No obvious epileptiform discharges were seen. The absence of epileptiform discharges does not rule out the diagnosis of epilepsy; therefore clinical correlation is recommended. MMROSA / IJN: [id number] /
[2018-04-25 20:02] LABS: Glucose,Whole Blood 140 mg/dL (75-99)
[2018-04-25 22:01] VITALS: RESP 16
[2018-04-26] MEDS: HEPARIN SODIUM,PORCINE 5,000 UNIT/ML 1 ML VIAL SQ SCH ×2 (00:39→07:55)
[2018-04-26 00:50] LABS: Glucose,Whole Blood 152 mg/dL (75-99)
[2018-04-26 01:56] LABS: Glucose,Whole Blood 128 mg/dL (75-99)
[2018-04-26] MEDS: IBUPROFEN 600 MG TAB PO PRN (03:52)
[2018-04-26 05:59] VITALS: BP 141/72; PULSE 70; TEMP 97.2
[2018-04-26 07:15] LABS: Glucose,Whole Blood 102 mg/dL (75-99)
[2018-04-26] MEDS: FLUoxetine HCL 20 MG CAP PO SCH (07:54)
[2018-04-26] MEDS: ESCITALOPRAM 10 MG TAB PO SCH (07:54)
[2018-04-26] MEDS: TAMSULOSIN 0.4 MG CAP.ER.24H PO SCH (07:54)
[2018-04-26] MEDS: FAMOTIDINE 20 MG TAB PO SCH (07:54)
[2018-04-26] MEDS: LISINOPRIL 10 MG TAB PO SCH (07:54)
[2018-04-26] MEDS: ZIPRASIDONE 80 MG CAP PO SCH (07:54)
[2018-04-26] MEDS: DICYCLOMINE 10 MG CAP PO SCH (07:55)
[2018-04-26] MEDS: DIVALPROEX ER 500 MG TAB.ER.24H PO SCH (07:55)
--- NOTE | 2018-04-26 08:45 | P.PN ---
Subjective Progress Note Date: 04/26/18 This is a 57-year-old male who sustained a right proximal fibula fracture after a seizure. Patient received his boot and states that he is tolerating well. Patient does complain of pain in the right knee, but states that this is under control. Patient states that he has been able to walk and the boot with his cane. Patient denies any new complaints or any fever/chills, numbness, weakness , tingling, abdominal pain, shortness of breath or chest pain. Objective - Vital Signs Vital signs: Vital Signs Temp 97.2 F L 04/26/18 05:00 Pulse 70 04/26/18 05:00 Resp 16 04/26/18 05:00 BP 141/72 04/26/18 05:00 Pulse Ox 99 04/26/18 05:00 Intake & Output 04/25/18 04/26/18 04/26/18 18:59 06:59 18:59 Intake Total 1190 Balance 1190 Intake: Oral 1190 Other: Voiding Method Urinal Urinal # Voids 2 1 - Exam On exam walking boot is intact. Patient is able to wiggle the toes of the right foot. Sensation intact. Neurovascular status and circulatory status are intact. - Labs CBC & Chem 7: 04/24/18 03:28 04/25/18 07:26 Labs: Abnormal Lab Results - Last 24 Hours (Table) 04/25/18 04/25/18 04/25/18 Range/Units 07:26 11:07 16:14 Chloride 111 H (98-107) mmol/L POC Glucose (mg/dL) 117 H 109 H (75-99) mg/dL 04/25/18 04/26/18 04/26/18 Range/Units 20:01 00:49 01:55 Chloride (98-107) mmol/L POC Glucose (mg/dL) 140 H 152 H 128 H (75-99) mg/dL 04/26/18 Range/Units 07:14 Chloride (98-107) mmol/L POC Glucose (mg/dL) 102 H (75-99) mg/dL Assessment and Plan (1) Fracture of proximal end of right fibula Current Visit: Yes Status: Acute Code(s): S82.831A - OTH FRACTURE OF UPPER AND LOWER END OF RIGHT FIBULA, INIT SNOMED Code(s): 43680862 Plan: 1. Weightbearing as tolerated in a walking boot. 2. Rest, ice and elevate the right lower extremity. 3. No surgical intervention planned. Patient may follow up as an outpatient in 2 weeks.
--- NOTE | 2018-04-26 14:33 | P.DS ---
Providers Date of admission: 04/24/18 08:33 Expected date of discharge: 04/26/18 Attending physician: Angela Coe Consults: 04/24/18 11:53 Consult Physician Routine Consulting Provider: Scot Smith Consult Reason/Comments: seizure Do you want consulting provider notified?: Yes 04/24/18 13:19 Consult Physician Stat Consulting Provider: Jay Feldman Consult Reason/Comments: Fibula Fracture Do you want consulting provider notified?: Yes Primary care physician: Marck Bartholomew [facility] Course: This is a 57-year-old male patient of Dr. Bartholomew with past medical history of diabetes for 16 years, GERD, hypertension, seizure disorder, schizoaffective disorder. Patient gives history that he fell down and had possible seizure at home. He was standing in the kitchen and he does not know what happened from there. He did lose control of his bowels. He apparently was on the floor for 20-30 minutes and that his roommates called EMS. He is complaining of pain to the right lower leg and knee area. He gives history that he has had trouble with low blood sugars for the last couple of days but did not call his physician and has not made any medication changes. He is normally on Lantus 45 units at bedtime. He states his last seizure was 2 years ago. He is complaining of some mid abdominal pain. Patient came into [facility] emergency center for evaluation. He underwent CT of the abdomen and pelvis that showed bladder diverticula. No sign of acute abdomen and pelvis. Mild subsegmental atelectasis at the lung bases similar to last exam. Depakote level was 33.1, urine drug screen detected benzodiazepines ago was less than 10. Urinalysis is negative for infection. Albumin 3.4. BUN 24 and creatinine 0.8. Upon presentation, blood sugar was 81 but did dip down to 29. Most recently at 64. He has received D50 2-1/2 A and we have just ordered glucagon. He is maintained on dextrose 5% half-normal saline. Tib-fib x-ray shows suggestive mild late displaced hairline fracture involving the neck of the fibula. X-ray also showed hairline fracture and a mildly displaced the neck of the proximal fibula but osseous structures of the knee are intact. No acute fracture. Consult in place for neurology, orthopedics. 04/25: Blood sugars are running 95-132. Hemoglobin A1c is 5.3. We will plan to discontinue IV fluids of dextrose half-normal saline. Continue Humalog scale only. If blood sugars are improving by morning, metformin will be resumed. Patient has been instructed to stay off Lantus at this point. Patient's daughter who is the power of consumer attorney did call and speak with nursing and stated that patient has not had enough food at home and the swelling is only eating 1 meal and has hypoglycemia. She is asking for the patient to go to [facility]. Patient really does not want to go to [facility] or extended care facility. PT and OT will be added in. Patient has been seen by orthopedics and premium equalizer boot has been ordered. Patient has been seen by neurology. Dr. Smith has requested MRI report from [facility]. EEG has been done and report is pending. He has increased Depakote ER to 1500 mg twice daily and plan for repeat Depakote level in 3-5 days. Plan is to monitor blood sugars overnight and plan for discharge tomorrow. 04/26: Patient has been seen by physical therapy with recommendations for home. Equalizer boot has been obtained. Blood sugars are running between 102 and 152. Patient resumed back on metformin for home. Social work and case management have worked with the patient and family, POA for discharge planning. Patient will be discharged home today in stable condition. Discharge diagnoses: 1. Syncope possibly due to seizure in a patient with history of seizures likely due to hypoglycemia. 2. Severe persistent hypoglycemia. 3. Diabetes mellitus type 2 uncontrolled with hypoglycemia. 4. Right fibula fracture. 5. Vertigo likely secondary to mastoiditis. 6. Hypertension. 7. History of seizure disorder. 8. GERD. 9. Schizoaffective disorder. Discharge plan: Home wit [facility]NA. Impression and plan of care have been directed as dictated by the signing physician. Elsie Harris nurse practitioner acting as scribe for signing physician. Patient Condition at Discharge: Good Plan - Discharge Summary Discharge Rx Participant: No New Discharge Prescriptions: New Divalproex ER [Depakote ER] 1,500 mg PO BID #180 tab.er.24h Ibuprofen [Motrin] 600 mg PO TID PRN tab PRN Reason: Analgesia Continue metFORMIN HCL [Glucophage] 1,000 mg PO BID Famotidine [Pepcid] 20 mg PO DAILY Lisinopril [Zestril] 10 mg PO DAILY FLUoxetine HCL [PROzac] 40 mg PO DAILY Ziprasidone [Geodon] 80 mg PO BID Tamsulosin [Flomax] 0.4 mg PO DAILY Escitalopram Oxalate [Lexapro] 10 mg PO DAILY Dicyclomine [Bentyl] 10 mg PO AC-TID Discontinued Insulin Glargine [Lantus] 45 unit SQ HS Divalproex ER [Depakote ER] 1,000 mg PO DAILY Divalproex ER [Depakote ER] 1,500 mg PO HS Ibuprofen [Motrin] 800 mg PO TID PRN PRN Reason: Pain Discharge Medication List FLUoxetine HCL [PROzac] 40 mg PO DAILY 04/28/17 [History] Famotidine [Pepcid] 20 mg PO DAILY 04/28/17 [History] Lisinopril [Zestril] 10 mg PO DAILY 04/28/17 [History] metFORMIN HCL [Glucophage] 1,000 mg PO BID 04/28/17 [History] Dicyclomine [Bentyl] 10 mg PO AC-TID 04/24/18 [History] Escitalopram Oxalate [Lexapro] 10 mg PO DAILY 04/24/18 [History] Tamsulosin [Flomax] 0.4 mg PO DAILY 04/24/18 [History] Ziprasidone [Geodon] 80 mg PO BID 04/24/18 [History] Divalproex ER [Depakote ER] 1,500 mg PO BID #180 tab.er.24h 04/26/18 [Rx] Ibuprofen [Motrin] 600 mg PO TID PRN tab 04/26/18 [Rx] Follow up Appointment(s)/Referral(s): Marck Bartholomew DO [Primary Care Provider] - 1 Week (office will call you for an appointment ) Jay Feldman DO [Doctor of Osteopathic Medicine] - 05/09/18 10:00 am [facility] Visiting Nurse, [NON-STAFF] - 1 Week Ambulatory/Diagnostic Orders: Miscellaneous Lab Order [LAB.AMB] Location: None Selected Patient Instructions/Handouts: Divalproex (By mouth), Hypoglycemia in a Person with Diabetes (DC), Epilepsy (DC), Altered Mental Status (GEN) Activity/Diet/Wound Care/Special Instructions: Weightbearing as tolerated with a walking boot. Rest, ice and elevate the right lower extremity. Discharge Disposition: HOME SELF-CARE
== END 2018-04-26 11:35 | disposition home or self-care (01) | DRG 101 ==
LOC: EC 03:16 → 4MS4W 08:33 → 5MS5E 11:41
PROVIDERS: ADMIT Internal Medicine; ATTEND Internal Medicine
DX: G40.909 Epilepsy, unspecified, not intractable, without status epilepticus (principal); K21.9 Gastro-esophageal reflux disease without esophagitis; S82.831A Other fracture of upper and lower end of right fibula, initial encounter for closed fracture; R29.90 Unspecified symptoms and signs involving the nervous system; E11.649 Type 2 diabetes mellitus with hypoglycemia without coma; H70.90 Unspecified mastoiditis, unspecified ear; F25.9 Schizoaffective disorder, unspecified; F31.9 Bipolar disorder, unspecified; F17.210 Nicotine dependence, cigarettes, uncomplicated; W19.XXXA Unspecified fall, initial encounter; N40.0 Benign prostatic hyperplasia without lower urinary tract symptoms; I11.0 Hypertensive heart disease with heart failure; I50.9 Heart failure, unspecified; Z79.4 Long term (current) use of insulin; Z79.899 Other long term (current) drug therapy; Z88.5 Allergy status to narcotic agent; Z88.0 Allergy status to penicillin; Z88.2 Allergy status to sulfonamides; Z91.048 Other nonmedicinal substance allergy status; Z86.14 Personal history of Methicillin resistant Staphylococcus aureus infection; Z91.81 History of falling; Y92.010 Kitchen of single-family (private) house as the place of occurrence of the external cause; Z90.49 Acquired absence of other specified parts of digestive tract; Z83.3 Family history of diabetes mellitus; Z80.42 Family history of malignant neoplasm of prostate; Z80.0 Family history of malignant neoplasm of digestive organs; Z82.3 Family history of stroke
CPT/HCPCS: 36415; 74177; 80048; 80053; 80164; 80306; 80320; 81001; 83036; 85025; 93005; 95816; 96361; 96372; 96374; 96376; 99285

== ENCOUNTER → 2018-05-10 | Outpatient (CLI) | payer MEDICARE, OTHER ==
--- NOTE | 2018-05-10 15:18 | SFUN ---
SLEEP CENTER FOLLOW UP NOTE DATE OF SERVICE: 05/10/2018 57-year-old gentleman who has been followed in Sleep Center for treatment of obstructive sleep apnea-hypopnea syndrome. Recently patient had diagnostic polysomnogram and CPAP-BiPAP titration and I discussed results of sleep studies with patient in detail. Diagnostic sleep study showed apnea-hypopnea index 19.3 with oxygen desaturation to 89%. Patient was recommended to get BiPAP machine with a pressure 8/4 cm of water. Today is his first visit after he received his BiPAP unit. I checked his BiPAP unit. BiPAP pressure 8/4 cm of water. Apnea-hypopnea index reading 6.4, but very significant leak in 119 L/minute. The patient just started to use machine. He used it 5/8 nights and 4/8 nights more than 4 hours. Average usage is 6.5 hours. [place] Sleepiness Scale is 5. MEDICATIONS: Depakote, Geodon, Prozac, lisinopril, Pepcid, Glucophage, albuterol inhaler, Spiriva inhaler, Lomotil, tamsulosin, dicyclomine. PHYSICAL EXAM: GENERAL gentleman without distress. VITAL SIGNS BP 132/82, HR 75, RR 18, weight 312.4, temp 97.3. HEENT PERRLA, EOMI, evaluation of oropharynx showed low position of soft palate. NECK Supple, no JVD. Thyroid is not palpable. LUNGS Clear to percussion and to auscultation. Good air exchange. No wheezing or rhonchi. HEART S1, S2 regular. No murmurs, gallops, or rubs. ABDOMEN Obese. Soft and nontender. Bowel sounds are present. No organomegaly appreciated. EXTREMITIES No clubbing or cyanosis. ACCOUNTANT CERTIFIED PUBLIC Awake, alert, and oriented X3. Cranial nerves 2 to 7 intact. There is no fasciculation or atrophy. noted. No focal deficits observed. IMPRESSION: 1. Moderate obstructive sleep apnea-hypopnea syndrome; apnea-hypopnea index 19.3 with oxygen desaturation to 89%. The patient benefitting from BiPAP treatment. 2. Obesity. 3. Diabetes mellitus. 4. Hypertension. 5. Acid reflux. 6. Chronic obstructive pulmonary disease. 7. History of benign prostatic hypertrophy. 8. History of depression. 9. Status post cholecystectomy. 10.Status post appendectomy. 11.Status post recent saliva gland removed from the right ear area. 12.Recent fracture of right foot. PLAN: 1. Patient will continue to use BiPAP equipment every night for the whole night. 2. Losing weight. 3. Sleep hygiene with regular time in bed for at least 8 hours. 4. We will try to use a nasal pillow mask because of very significant leak from full- face mask with addition of chin strap and if necessary nasal strips. 5. No driving if feeling sleepiness. Thank you very much for allowing me to participate in management of your patient. Sincerely, Gabriel Hernandez MD, PhD, FAASM Diplomat of [employer] [employer] [facility] [place] MMODL / IJN: [id number] /
== END | disposition home or self-care (01) ==
LOC: SLEEP 13:56
PROVIDERS: ATTEND Internal Medicine
DX: G47.33 Obstructive sleep apnea (adult) (pediatric) (principal); E66.9 Obesity, unspecified; E11.9 Type 2 diabetes mellitus without complications; I10 Essential (primary) hypertension; K21.9 Gastro-esophageal reflux disease without esophagitis; J44.9 Chronic obstructive pulmonary disease, unspecified; F32.9 Major depressive disorder, single episode, unspecified; S92.901A Unspecified fracture of right foot, initial encounter for closed fracture; Z87.438 Personal history of other diseases of male genital organs; Z90.49 Acquired absence of other specified parts of digestive tract; Z90.89 Acquired absence of other organs; Z79.84 Long term (current) use of oral hypoglycemic drugs; Z79.899 Other long term (current) drug therapy

== ENCOUNTER → 2018-12-25 | Outpatient (CLI) | payer MEDICARE, OTHER | END | disposition home or self-care (01) | LOC: LABWHC1 15:22 | PROVIDERS: ATTEND Family Medicine | DX: R60.0 Localized edema (principal) | CPT/HCPCS: 36415; 85379 ==

== ENCOUNTER → 2018-12-26 | Outpatient (CLI) | payer MEDICARE, OTHER ==
--- NOTE | 2018-12-26 17:03 | US ---
EXAMINATION TYPE: US venous doppler duplex LE DATE OF EXAM: 12/26/2018 4:48 PM COMPARISON: US 2012 CLINICAL HISTORY: R79.1 Positive D Dimer. Positive D Dimer. Hx DVT left leg. Pt takes aspirin. SIDE PERFORMED: Bilateral TECHNIQUE: The lower extremity deep venous system is examined utilizing real time linear array sonog jadon with graded compression, doppler sonography and color-flow sonography. VESSELS IMAGED: External Iliac Vein (EIV) Common Femoral Vein Deep Femoral Vein Greater Saphenous Vein * Femoral Vein Popliteal Vein Small Saphenous Vein * Proximal Calf Veins (* superficial vessels) Limited visibility of the distal femoral veins bilaterally due to body habitus. Right Leg: No evidence of DVT in the right lower extremity. Left Leg: No evidence of DVT in the left lower extremity. IMPRESSION: Normal exam.
== END | disposition home or self-care (01) ==
LOC: RADUSWWP 15:59
PROVIDERS: ATTEND Family Medicine
DX: R79.1 Abnormal coagulation profile (principal)
CPT/HCPCS: 93970

== ENCOUNTER → 2019-03-18 | Outpatient (CLI) | payer MEDICARE, OTHER ==
--- NOTE | 2019-03-18 16:58 | CT ---
EXAMINATION TYPE: CT ankle RT wo con DATE OF EXAM: 03/18/2019 COMPARISON: Plain 04/24/2018 INDICATION: Right ankle pain DLP: 196.1 mGycm, Automated exposure control for dose reduction was used. CONTRAST: None CT of the ankle is performed in the axial plane at 2 mm thick sections. Three-D reconstructed images performed separately by the technologist are reviewed. Axial and sagittal reconstructed images are ob tained. There is a nonunion of an oblique fracture of the distal metadiaphyseal fibula. No additional fractures are evident. Degenerative joint changes are noted at the talotibial junction. The ankle mortise as visualized appears intact IMPRESSIONS: 1. 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
== END | disposition home or self-care (01) ==
LOC: RADCTMAIN 15:23
PROVIDERS: ATTEND Orthopaedic Surgery
DX: S82.831K Other fracture of upper and lower end of right fibula, subsequent encounter for closed fracture with nonunion (principal); E11.9 Type 2 diabetes mellitus without complications; F17.200 Nicotine dependence, unspecified, uncomplicated

== ENCOUNTER → 2019-03-22 | Outpatient (CLI) | payer MEDICARE, OTHER | END | disposition home or self-care (01) | LOC: LABWHC1 10:45 | PROVIDERS: ATTEND Orthopaedic Surgery | DX: M25.571 Pain in right ankle and joints of right foot (principal); F17.200 Nicotine dependence, unspecified, uncomplicated; G57.91 Unspecified mononeuropathy of right lower limb; E11.41 Type 2 diabetes mellitus with diabetic mononeuropathy; S82.61XG Displaced fracture of lateral malleolus of right fibula, subsequent encounter for closed fracture with delayed healing | CPT/HCPCS: 36415; 82306 ==

== ENCOUNTER → 2019-04-01 | Outpatient (CLI) | payer MEDICARE, OTHER ==
--- NOTE | 2019-04-01 08:23 | MR ---
EXAMINATION TYPE: MR knee RT wo con DATE OF EXAM: 04/01/2019 COMPARISON: X-ray 04/24/2018 HISTORY: Pain in right knee TECHNIQUE: Multiplanar, multisequence imaging of the right knee is performed without IV contrast. FINDINGS: Motion artifact limits the exam. Grossly the anterior cruciate and posterior cruciate ligaments intact. Grossly the lateral collateral medial collateral ligaments are intact. Mild narrowing the medial compartment and patellofemoral compartment joint space. Assessment for meniscal tear somewhat limited due to motion. There is suspicion for a linear tear inv olving the posterior medial meniscus. No obvious popliteal fossa cyst. No bone marrow edema or contusion. No sizable fluid collection in the suprapatellar bursa. Quadriceps and patellar tendons intact. IMPRESSION: Limited exam due to motion artifact. 1. Mild arthropathy with suspicion of a simple linear tear posterior horn medial meniscus.
== END | disposition home or self-care (01) ==
LOC: RADMRIMAIN 06:34
PROVIDERS: ATTEND Orthopaedic Surgery
DX: M17.11 Unilateral primary osteoarthritis, right knee (principal)

== ENCOUNTER → 2019-04-08 | Outpatient (CLI) | payer MEDICARE, OTHER ==
[2019-04-08 10:40] LABS: Basophils # (A) 0.1 k/uL (0-0.2); Basophils % (A) 1 %; Eosinophils # (A) 0.2 k/uL (0-0.7); Eosinophils % (A) 3 %; HGB 12.7 gm/dL (13.0-17.5); Lymphocytes # (A) 2.4 k/uL (1.0-4.8); Lymphocytes % (A) 37 %; MCH 31.6 pg (25.0-35.0); MCHC 33.4 g/dL (31.0-37.0); MCV 94.6 fL (80.0-100.0); Mean Platelet Volume 6.4; Monocytes # (A) 0.6 k/uL (0-1.0); Monocytes % (A) 9 %; Neutrophils % (A) 48 %; Platelet Count 216 k/uL (150-450); RBC 4.01 m/uL (4.30-5.90); RDW 13.8 % (11.5-15.5); WBC 6.3 k/uL (3.8-10.6)
[2019-04-08 10:48] LABS: Potassium 5.2 mmol/L (3.5-5.1)
--- NOTE | 2019-04-08 11:20 | XR ---
EXAMINATION TYPE: XR chest 2V DATE OF EXAM: 04/08/2019 COMPARISON: 04/28/2017 TECHNIQUE: PA and lateral views submitted. HISTORY: Presurgical FINDINGS: The lungs are clear and there is no pneumothorax, pleural effusion, or focal pneumonia. Hypertrophi c and degenerative change of the spine. Density overlying the anterior margin the left first rib is s table and therefore likely related to the rib. No overt failure. Chronic rib deformities are noted. IMPRESSION: 1. No acute process.
== END | disposition home or self-care (01) ==
LOC: LABPAT 09:24
PROVIDERS: ATTEND Orthopaedic Surgery
DX: Z01.818 Encounter for other preprocedural examination (principal); Z01.812 Encounter for preprocedural laboratory examination; M23.91 Unspecified internal derangement of right knee
CPT/HCPCS: 36415; 71046; 80051; 85025; 93005

== ENCOUNTER → 2019-04-10 | Outpatient (CLI) | payer MEDICARE, OTHER ==
[2019-04-10 09:23] LABS: Basophils # (A) 0.1 k/uL (0-0.2); Basophils % (A) 1 %; Eosinophils # (A) 0.2 k/uL (0-0.7); Eosinophils % (A) 3 %; HCT 38.3 % (39.0-53.0); HGB 12.6 gm/dL (13.0-17.5); Lymphocytes # (A) 2.8 k/uL (1.0-4.8); Lymphocytes % (A) 36 %; MCH 31.8 pg (25.0-35.0); MCHC 32.9 g/dL (31.0-37.0); MCV 96.6 fL (80.0-100.0); Mean Platelet Volume 6.9; Monocytes # (A) 0.7 k/uL (0-1.0); Monocytes % (A) 9 %; Neutrophils # (A) 3.9 k/uL (1.3-7.7); Neutrophils % (A) 50 %; Platelet Count 239 k/uL (150-450); RBC 3.97 m/uL (4.30-5.90); RDW 14.9 % (11.5-15.5); WBC 7.8 k/uL (3.8-10.6)
[2019-04-10 17:47] LABS: African American GFR (CKD) 54.6 (60.0-200.0); Anion Gap 8.7 mmol/L (4.00-12.00); BUN/Creat Ratio 26.88 Ratio (12.00-20.00); Calcium 9.1 mg/dL (8.7-10.3); Carbon Dioxide 26.3 mmol/L (21.6-31.8); Potassium 5.5 mmol/L (3.5-5.5)
== END | disposition home or self-care (01) ==
LOC: LABWHC1 08:35
PROVIDERS: ATTEND Family Medicine
DX: E87.6 Hypokalemia (principal); D64.9 Anemia, unspecified
CPT/HCPCS: 36415; 80048; 85025

== ENCOUNTER → 2019-04-30 | Day surgery (SDC) | payer MEDICARE, OTHER ==
[2019-04-24 14:25] VITALS: BMI 48.7
--- NOTE | 2019-04-29 09:19 | HP ---
HISTORY AND PHYSICAL CHIEF COMPLAINT: Right knee pain. HISTORY OF PRESENT ILLNESS: The patient is a 58-year-old gentleman on disability who presents with progressive right knee pain for the past several months. He notes pain with walking and giving way. He notes intermittent swelling. He is using a cane. He has tried anti- inflammatories without much relief. PAST MEDICAL HISTORY: Significant for depression, type 2 diabetes, hypertension, and seizure disorder. PAST SURGICAL HISTORY: Significant for bilateral foot surgery. CURRENT MEDICATIONS: 1. Depakote. 2. Flomax. 3. Glucophage. 4. Ibuprofen. 5. Lexapro. 6. Lisinopril. 7. Prozac. 8. Tylenol. ALLERGIES: He has allergies to PENICILLIN, SULFA, CODEINE, and CHLORINE. FAMILY HISTORY: Significant for diabetes. SOCIAL HISTORY: Significant for 1/2 pack per day tobacco use. He previously was a heavy alcohol drinker. REVIEW OF SYSTEMS: Sixteen-point review of systems otherwise reviewed and is noncontributory. PHYSICAL EXAMINATION: On examination, the patient is approximately 6 feet 1 inch, 280 pounds of endomorphic habitus. HEENT exam is nonfocal. Neck is supple. He has painless passive motion of the right hip. Straight leg raise is negative. Active motion right knee -10 to 105 degrees of flexion. On the right knee, he has a trace effusion. He is tender about the medial and lateral joint line. Collaterals are stable, Arvind is negative, Denise's elicits medial pain. His distal neurovascular exam appears to be intact in the right lower extremity. MRI report 04/01/2019 of the right knee shows a posterior medial meniscal tear. IMPRESSION: 1. Right knee internal derangement with symptomatic medial meniscal tear. 2. Possible lateral femoral condyle chondral injury. 3. History of seizure disorder. RECOMMENDATIONS: I talked to the patient at length regarding his condition and treatment options. At this point, he is having persistent pain and mechanical symptoms that limit him despite conservative measures. After thorough discussion, he opts to proceed with surgery. We will plan to proceed with arthroscopic evaluation of the right knee with possible partial medial meniscectomy in addition to possible lateral femoral chondrectomy. We will likely perform that as an outpatient procedure. Risks and benefits were discussed at length in layman's terms. MMODL / IJN: [id number] /
[~2019-04-30] MED LIST changes: +DEXAMETHASONE SOD PHOSPHATE 10 MG/ML 1 ML VIAL IV ONE; +EPINEPHrine (PF) 1 ML in SODIUM CHLORIDE 0.9% IRRIGATIO 3,000 ML IRRIGATION ONE; +HYDROcodone/APAP 5-325MG 1 EACH TAB PO ONE; +LIDOCAINE 1% 20 ML VIAL (10MG/ML) FOR IV START INTRADERMA ONE; +LIDOCAINE 1% INJ 10MG/ML (20 ML MDV) ONE; +MIDAZOLAM 2 MG/2 ML VIAL IV PRN; +MIDAZOLAM 2 MG/2 ML VIAL ONE; +ONDANSETRON 4 MG/2 ML VIAL IVP ONE; +PROPOFOL 10 MG/ML 20 ML VIAL IV ONE; +SCOPOLAMINE 1.5MG/72HR PATCH TRANSDERM ONE; +SUCCINYLCHOLINE CHLORIDE VIAL 200 MG/10 ML VIAL IV ONE; +ceFAZolin 3 GM in SODIUM CHLORIDE 0.9% 100 ML IVPB ONE; +ePHEDrine SULFATE/0.9% NACL/PF 50 MG/5 ML SYRINGE IV ONE; +fentaNYL (PF) 50 MCG/ML 2 ML AMP IV PRN; +fentaNYL (PF) 50 MCG/ML 2 ML AMP ONE
[2019-04-30 11:44] LABS: Glucose,Whole Blood 98 mg/dL (75-99)
--- NOTE | 2019-04-30 12:49 | P.OP ---
Date of Procedure: 04/30/19 Preoperative Diagnosis: Right knee internal derangement Postoperative Diagnosis: Right knee posterior medial meniscal tear/grade 3 chondral injury distal lateral medial femoral condyle/reactive synovitis of the medial, lateral, and patellofemoral articulations Procedure(s) Performed: Right knee arthroscopic partial medial meniscectomy/medial femoral chondrectomy/partial synovectomy of the medial, lateral, and patellofemoral compartments Anesthesia: GETA Surgeon: Harsha Alonzo Estimated Blood Loss (ml): 10 Pathology: none sent Condition: stable Disposition: PACU Indications for Procedure: The patient's a 58-year-old male presents with progressive right knee pain and mechanical symptoms despite conservative measures. A discussion of the risks and benefits of operative intervention versus continued conservative measures was made with patient. He opted to proceed with surgery. Operative risks to include infection, neurovascular injury, development of blood clots, possible incomplete resolution of symptoms, possible worsening symptoms and need for subsequent procedures was discussed. Informed consent was obtained. Operative Findings: As below Description of Procedure: The patient was brought to the operating room, and after induction of general anesthesia examined the right knee. Collaterals were stable, Arvind was negative, and posterior drawer was negative. The right lower extremity was prepped and draped in a normal fashion. A superior lateral portal was made through a 3 mm skin incision superior and lateral to the patella. This was used for outflow. A lateral portal was made through a 5 mm vertical skin incision lateral to the patella tendon above the joint line. Diagnostic arthroscopy was performed. On inspection of the medial compartment a longitudinal tear involving the posterior horn of the medial meniscus was noted in the white-white junction. This was debrided back to stable base with straight baskets and a motorized shaver. A grade 3 chondral injury was noted involving the distal lateral portion of the medial femoral condyle. There was a loose chondral fragment debrided back to stable base with a motorized shaver. Reactive synovitis involving the anterior medial and lateral compartments was debrided with a motorized shaver. On inspection of the notch, the anterior cruciate ligament appeared to be intact. On inspection of the lateral compartment, no significant meniscal or articular cartilage pathology was noted. On inspection of the patellofemoral articulation, there was reactive synovitis and grade 2 chondral changes noted diffusely. The device was debrided with a motorized shaver. The gutters were clear debris. The knee was then thoroughly irrigated. The portals were closed with Steri-Strips. A sterile dressing was applied in addition to a compression stocking. The patient was awoken from general anesthesia and transferred to recovery room in good condition. Blood loss was estimated at 10 mL. No complications were incurred.
[2019-04-30 12:57] VITALS: TEMP 97.2
[2019-04-30 13:05] VITALS: RESP 16
[2019-04-30 13:14] LABS: Glucose,Whole Blood 102 mg/dL (75-99)
[2019-04-30 14:14] VITALS: BP 117/70; PULSE 83
== END | disposition home or self-care (01) ==
LOC: OR 08:45
PROVIDERS: ATTEND Orthopaedic Surgery
DX: S83.241A Other tear of medial meniscus, current injury, right knee, initial encounter (principal); S83.31XA Tear of articular cartilage of right knee, current, initial encounter; X58.XXXA Exposure to other specified factors, initial encounter; M65.88 Other synovitis and tenosynovitis, other site; I25.10 Atherosclerotic heart disease of native coronary artery without angina pectoris; I10 Essential (primary) hypertension; E78.5 Hyperlipidemia, unspecified; E11.9 Type 2 diabetes mellitus without complications; J44.9 Chronic obstructive pulmonary disease, unspecified; K21.9 Gastro-esophageal reflux disease without esophagitis; M19.90 Unspecified osteoarthritis, unspecified site; F32.9 Major depressive disorder, single episode, unspecified; F41.9 Anxiety disorder, unspecified; G40.409 Other generalized epilepsy and epileptic syndromes, not intractable, without status epilepticus; F17.210 Nicotine dependence, cigarettes, uncomplicated; Z79.1 Long term (current) use of non-steroidal anti-inflammatories (NSAID); Z79.84 Long term (current) use of oral hypoglycemic drugs; Z79.899 Other long term (current) drug therapy; Z88.5 Allergy status to narcotic agent; Z88.0 Allergy status to penicillin; Z88.2 Allergy status to sulfonamides; Z91.048 Other nonmedicinal substance allergy status; Z90.49 Acquired absence of other specified parts of digestive tract
CPT/HCPCS: 29881; J2250; J0330; J1100; J0690; J2405; J0171; J2001; J3010; J2704

== ENCOUNTER → 2019-08-29 | Outpatient (CLI) | payer MEDICARE, OTHER ==
--- NOTE | 2019-08-29 14:29 | CT ---
EXAMINATION TYPE: CT abdomen wo con DATE OF EXAM: 08/29/2019 COMPARISON: 04/24/2018 HISTORY: Left sided upper abdominal pain CT DLP: 937 mGycm Automated exposure control for dose reduction was used. TECHNIQUE: Helical acquisition of images was performed from the lung bases through the top of iliac crest to include entire abdomen. CONTRAST: Performed with Oral Contrast and without IV contrast. FINDINGS: LUNG BASES: No significant abnormality is appreciated. LIVER/GB: Cholecystectomy changes. Mild central biliary dilation likely postsurgical.. PANCREAS: No significant abnormality is seen. SPLEEN: Accessory splenules. ADRENALS: Sub-5 mm adrenal nodules too small to characterize. KIDNEYS: No renal stones or hydronephrosis. Lobulation the renal cortex likely chronic. BOWEL: No significant abnormality is seen. LYMPH NODES: No significant abnormality is appreciated. OSSEOUS STRUCTURES: Hypertrophic and degenerative change of the spine. Chronic right rib fractures n oted. OTHER: Atherosclerotic change aorta. No aneurysm. IMPRESSION: 1. Post cholecystectomy changes with mild central intrahepatic biliary dilation most likely in the ba sis of previous cholecystectomy. 2. Multiple accessory spleen or splenule is noted in the left upper quadrant are stable from prior ex am. 3. No acute process.
== END | disposition home or self-care (01) ==
LOC: RADCTMAIN 12:18
PROVIDERS: ATTEND Family Medicine
DX: R10.84 Generalized abdominal pain (principal); K83.8 Other specified diseases of biliary tract; Z90.49 Acquired absence of other specified parts of digestive tract
CPT/HCPCS: 74150

== ENCOUNTER → 2020-07-16 | Outpatient (CLI) | payer MEDICARE ==
[2020-07-16 11:57] LABS: African American GFR (CKD) >90 (>60 ml/min/1.73 sqM); Blood Urea Nitrogen 39 mg/dL (9-20); Non-African American GFR(CKD) 79 (>60 ml/min/1.73 sqM)
--- NOTE | 2020-07-16 13:25 | CT ---
EXAMINATION TYPE: CT urogram wo/w con DATE OF EXAM: 07/16/2020 COMPARISON: CT abdomen and pelvis April 24, 2018 HISTORY: hematuria, pain while urinating CT DLP: 4678.7 mGycm, Automated Exposure Control for Dose Reduction was Utilized. CONTRAST: CT scan of the abdomen and pelvis is performed without oral and without and with IV Contrast, patient injected with 100 mL of Isovue 300. Urogram protocol with 3-D reconstructed images created on an [employer] workstation and reviewed. FINDINGS: KUB: Noncontrast images show no renal calculi bilaterally. There is lobulated contour to both kidneys redemonstrated. Postcontrast images show symmetric uptake and excretion with simple appearing thin-w alled 1.5 cm cyst medially lower pole of the right kidney redemonstrated. No new concerning solid or cystic renal mass in either kidney identified. No hydronephrosis noted bilaterally. Ureters are not c ompletely opacified. Distal right ureter jet is seen. Left ureter shows no suspicious focal dilatatio n or obstructing mass. Urinary bladder shows no intraluminal mass or wall thickening. Small diverticu lum along the anterior superior margin redemonstrated. LUNG BASES: No significant abnormality is appreciated. LIVER/GB: Cholecystectomy clips are redemonstrated. PANCREAS: No significant abnormality is seen. SPLEEN: Scattered splenules are again seen. ADRENALS: No significant abnormality is seen. BOWEL: Appendix surgically absent. PROSTATE/SEMINAL VESICLES: Some central calcifications and the normal sized prostate. LYMPH NODES: No greater than 1cm abdominal or pelvic lymph nodes are appreciated. OSSEOUS STRUCTURES: [id number] multilevel spurring in the spine . OTHER: No significant additional abnormality is seen. IMPRESSION: Source of hematuria and dysuria not identified. Stable superior small bladder diverticulu m. No significant change from prior CT.
== END | disposition home or self-care (01) ==
LOC: RADCTMAIN 11:21
PROVIDERS: ATTEND Urology
DX: N32.3 Diverticulum of bladder (principal); R31.0 Gross hematuria; R30.0 Dysuria; Z88.0 Allergy status to penicillin; Z88.5 Allergy status to narcotic agent
CPT/HCPCS: 82565; 84520; 74178; 36415; 74400; Q9967

== ENCOUNTER 2020-09-29 06:51 | Day surgery (SDC) | payer MEDICARE ==
[2020-09-25 10:04] VITALS: BMI 45.8
[~2020-09-29 06:51] MED LIST changes: -DEXAMETHASONE SOD PHOSPHATE 10 MG/ML 1 ML VIAL IV ONE; -EPINEPHrine (PF) 1 ML in SODIUM CHLORIDE 0.9% IRRIGATIO 3,000 ML IRRIGATION ONE; -HYDROcodone/APAP 5-325MG 1 EACH TAB PO ONE; +LIDOCAINE 1% (10MG/ML) FOR IV START INTRADERMA PRN; -LIDOCAINE 1% 20 ML VIAL (10MG/ML) FOR IV START INTRADERMA ONE; -LIDOCAINE 1% INJ 10MG/ML (20 ML MDV) ONE; -MIDAZOLAM 2 MG/2 ML VIAL IV PRN; -MIDAZOLAM 2 MG/2 ML VIAL ONE; -ONDANSETRON 4 MG/2 ML VIAL IVP ONE; -PROPOFOL 10 MG/ML 20 ML VIAL IV ONE; -SCOPOLAMINE 1.5MG/72HR PATCH TRANSDERM ONE; -SUCCINYLCHOLINE CHLORIDE VIAL 200 MG/10 ML VIAL IV ONE; -ceFAZolin 3 GM in SODIUM CHLORIDE 0.9% 100 ML IVPB ONE; -ePHEDrine SULFATE/0.9% NACL/PF 50 MG/5 ML SYRINGE IV ONE; -fentaNYL (PF) 50 MCG/ML 2 ML AMP IV PRN; -fentaNYL (PF) 50 MCG/ML 2 ML AMP ONE
[2020-09-29 07:20] VITALS: RESP 16; TEMP 97.6
[2020-09-29 07:32] LABS: Glucose,Whole Blood 142 mg/dL (75-99)
[2020-09-29] MEDS ORDERED: PROPOFOL 10 MG/ML 20 ML VIAL IV ONE (08:00)
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
--- NOTE | 2020-09-29 08:23 | P.PCN ---
Date of Procedure: 09/29/20 Procedure(s) Performed: PREOPERATIVE DIAGNOSIS: Colon cancer screening, family history of colon cancer in father POSTOPERATIVE DIAGNOSIS: Small rectal polyp PROCEDURE: Colonoscopy with snare polypectomy ANESTHESIA: MAC SURGEON: Iban Mills M.D. SPECIMENS: Rectal polyp ENDOSCOPIC PROCEDURE: The patient was placed on the endoscopy table in the left decubitus position. The Olympus colonoscope was inserted into the anus and passed under direct visualization to the base of the cecum. The appendiceal o rifice was visualized. From that point the scope was slowly withdrawn inspecting all surfaces carefully. There were no neoplastic inflammatory or polypoid lesions throughout the cecum, ascending, transverse, descending, and sigmoid colon. The rectum a small polyp was seen and removed using the snare with cautery technique. There was no visible diverticulosis. Digital rectal examination was normal. The patient was taken to the recovery room in stable condition per anesthesia guidelines. RECOMMENDATIONS: Await biopsy results. Follow-up colonoscopy 5 years.
[2020-09-29 08:46] VITALS: BP 117/72; PULSE 92
== END 2020-09-29 09:02 | disposition home or self-care (01) ==
LOC: ORWHC2ENDO 06:51
PROVIDERS: ATTEND Surgery
DX: Z12.11 Encounter for screening for malignant neoplasm of colon (principal); D12.8 Benign neoplasm of rectum; Z80.0 Family history of malignant neoplasm of digestive organs; I10 Essential (primary) hypertension; E78.5 Hyperlipidemia, unspecified; K21.9 Gastro-esophageal reflux disease without esophagitis; G47.33 Obstructive sleep apnea (adult) (pediatric); F17.200 Nicotine dependence, unspecified, uncomplicated; N40.0 Benign prostatic hyperplasia without lower urinary tract symptoms; G43.909 Migraine, unspecified, not intractable, without status migrainosus; E11.9 Type 2 diabetes mellitus without complications; J44.9 Chronic obstructive pulmonary disease, unspecified; M19.90 Unspecified osteoarthritis, unspecified site; G40.909 Epilepsy, unspecified, not intractable, without status epilepticus; Z88.0 Allergy status to penicillin; Z88.2 Allergy status to sulfonamides; Z88.5 Allergy status to narcotic agent; Z79.899 Other long term (current) drug therapy; Z79.84 Long term (current) use of oral hypoglycemic drugs; Z87.01 Personal history of pneumonia (recurrent); Z81.8 Family history of other mental and behavioral disorders; Z86.14 Personal history of Methicillin resistant Staphylococcus aureus infection; Z90.49 Acquired absence of other specified parts of digestive tract; Z98.890 Other specified postprocedural states; Z98.41 Cataract extraction status, right eye; Z98.42 Cataract extraction status, left eye; Z79.1 Long term (current) use of non-steroidal anti-inflammatories (NSAID); Z86.73 Personal history of transient ischemic attack (TIA), and cerebral infarction without residual deficits; Z80.42 Family history of malignant neoplasm of prostate; Z88.8 Allergy status to other drugs, medicaments and biological substances
CPT/HCPCS: 88305; 45385; J2704

== ENCOUNTER 2021-01-27 11:59 | Emergency (ER) | payer MEDICARE ==
[2021-01-27 12:06] VITALS: BP 109/65; PULSE 114; RESP 18; TEMP 98.1
[2021-01-27] MEDS ORDERED: CLINDAMYCIN 600 MG in DEXTROSE 5% IN WATER 50 ML IVPB STA ×2 (12:29)
[2021-01-27] MEDS ORDERED: LEVOFLOXACIN 500 MG TAB PO STA (12:30)
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
[2021-01-27 13:09] LABS: Basophils # (A) 0.1 k/uL (0-0.2); Basophils % (A) 1 %; Eosinophils # (A) 0.2 k/uL (0-0.7); Eosinophils % (A) 2 %; HCT 30.8 % (39.0-53.0); HGB 10.5 gm/dL (13.0-17.5); Lymphocytes # (A) 1.2 k/uL (1.0-4.8); Lymphocytes % (A) 12 %; MCH 33.6 pg (25.0-35.0); MCHC 34.1 g/dL (31.0-37.0); MCV 98.3 fL (80.0-100.0); Mean Platelet Volume 7.1; Monocytes # (A) 0.8 k/uL (0-1.0); Monocytes % (A) 8 %; Neutrophils # (A) 7.6 k/uL (1.3-7.7); Neutrophils % (A) 77 %; Platelet Count 180 k/uL (150-450); RBC 3.14 m/uL (4.30-5.90); RDW 13.6 % (11.5-15.5); WBC 9.8 k/uL (3.8-10.6)
[2021-01-27 13:27] LABS: Albumin 3.2 g/dL (3.5-5.0); Calcium 9.1 mg/dL (8.4-10.2); Potassium 5.1 mmol/L (3.5-5.1); Total Bilirubin 0.2 mg/dL (0.2-1.3); Total Protein 6.6 g/dL (6.3-8.2)
[2021-01-27] MEDS ORDERED: DIPH,PERTUS(ACELL)TETVAC-LF 0.5 ML VIAL IM ONE (13:44)
--- NOTE | 2021-01-27 14:42 | XR ---
Left hand HISTORY: Infected cat bite, cellulitis 3 views of the left hand Bone mineralization, joint spaces and alignment are maintained. There is no periostitis to suggest os teomyelitis. Ossific density dorsal to the wrist on the lateral exam appears well-corticated and is n ot felt likely to be acute, correlate for remote history of possible triquetral fracture. No radiopaq ue foreign body is evident. There is soft tissue swelling. IMPRESSION: Correlate for cellulitis.
--- NOTE | 2021-01-27 14:44 | XR ---
Left foot HISTORY: Trauma and pain 3 views of the left foot, comparison to prior exam dated 06/11/2010 Postop change noted to the distal fifth metatarsal. There is distortion of the interphalangeal joint of the fifth digit which is stable. Bone mineralization is reduced. Osteoarthritic change present at the first metatarsophalangeal joint. There is a plantar calcaneal spur. Enthesophyte present at the i nsertion of the Achilles tendon. IMPRESSION: No acute fracture or dislocation.
== END 2021-01-27 15:08 | disposition home or self-care (01) ==
LOC: EC 11:59
DX: S61.452A Open bite of left hand, initial encounter (principal); S90.32XA Contusion of left foot, initial encounter; S60.222A Contusion of left hand, initial encounter; L03.114 Cellulitis of left upper limb; N17.9 Acute kidney failure, unspecified; E86.0 Dehydration; E11.36 Type 2 diabetes mellitus with diabetic cataract; E78.5 Hyperlipidemia, unspecified; F17.200 Nicotine dependence, unspecified, uncomplicated; I10 Essential (primary) hypertension; J44.9 Chronic obstructive pulmonary disease, unspecified; F25.9 Schizoaffective disorder, unspecified; G47.33 Obstructive sleep apnea (adult) (pediatric); K21.9 Gastro-esophageal reflux disease without esophagitis; Z79.84 Long term (current) use of oral hypoglycemic drugs; Z86.73 Personal history of transient ischemic attack (TIA), and cerebral infarction without residual deficits; Z90.89 Acquired absence of other organs; Z90.49 Acquired absence of other specified parts of digestive tract; Z99.81 Dependence on supplemental oxygen; W55.01XA Bitten by cat, initial encounter; Z23 Encounter for immunization
CPT/HCPCS: 36415; 80053; 82550; 85025; 87040; 90471; 90715; 96365; 99283

== ENCOUNTER 2021-03-05 06:31 | Day surgery (SDC) | payer MEDICARE ==
[2021-03-03 16:09] VITALS: BMI 44.3
[2021-03-05] MEDS ORDERED: LACTATED RINGERS 1,000 ML IV SCH (07:06)
[2021-03-05 07:23] VITALS: TEMP 98.2
[2021-03-05 07:36] LABS: Glucose,Whole Blood 123 mg/dL (75-99)
[2021-03-05] MEDS ORDERED: PROPOFOL 10 MG/ML 20 ML VIAL IV ONE (07:52)
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
--- NOTE | 2021-03-05 08:23 | P.OP ---
Date of Procedure: 03/05/21 Preoperative Diagnosis: Hematemesis, rectal bleeding Postoperative Diagnosis: Antral gastritis Procedure(s) Performed: EGD Colonoscopy Anesthesia: MAC Surgeon: Remy Hannon Pathology: other (Antrum) Condition: stable Disposition: PACU Description of Procedure: PROCEDURE: The patient was placed on the endoscopy table in the lateral position. The patient appeared to have severe dermatitis related to sebaceous cyst in the perianal area. Digital rectal examination was performed which revealed no abnormalities. The prostate was symmetrical without nodules. Flexible colonoscope was then placed in the patient's anus and passed throughout the entire colon. The ileocecal valve was visualized. The cecum, ascending, transverse, descending and sigmoid colon were normal. The rectum was normal as well. There were no masses, polyps or diverticula noted in the entire colon. Next, the gastroscope placed oropharynx passed in the esophagus and stomach. Scope was placed through the pylorus. The first and second portion of the duodenum appeared normal. Scope was then brought back the antrum this was mildly inflamed. A biopsies performed. Scope was retroflexed there is no significant hiatal hernia. The GE junction was at 40 cm. The distal esophagus appeared normal. The proximal esophagus. The scope.
[2021-03-05] MEDS ORDERED: IV FLUID CONTINUATION 1,000 ML IV ONE (08:26)
[2021-03-05 08:29] VITALS: RESP 16
[2021-03-05 08:41] VITALS: BP 109/75; PULSE 72
== END 2021-03-05 09:15 | disposition home or self-care (01) ==
LOC: ORWHC2ENDO 06:31
PROVIDERS: ATTEND Surgery
DX: K29.50 Unspecified chronic gastritis without bleeding (principal); K62.5 Hemorrhage of anus and rectum; J44.9 Chronic obstructive pulmonary disease, unspecified; E11.9 Type 2 diabetes mellitus without complications; K21.9 Gastro-esophageal reflux disease without esophagitis; E78.5 Hyperlipidemia, unspecified; I10 Essential (primary) hypertension; M19.90 Unspecified osteoarthritis, unspecified site; Z86.73 Personal history of transient ischemic attack (TIA), and cerebral infarction without residual deficits; Z87.01 Personal history of pneumonia (recurrent); G40.909 Epilepsy, unspecified, not intractable, without status epilepticus; G47.30 Sleep apnea, unspecified; R29.6 Repeated falls; R42 Dizziness and giddiness; R15.9 Full incontinence of feces; N40.0 Benign prostatic hyperplasia without lower urinary tract symptoms; M10.9 Gout, unspecified; F17.210 Nicotine dependence, cigarettes, uncomplicated; F41.9 Anxiety disorder, unspecified; F31.9 Bipolar disorder, unspecified; Z86.14 Personal history of Methicillin resistant Staphylococcus aureus infection; Z90.89 Acquired absence of other organs; Z90.49 Acquired absence of other specified parts of digestive tract; Z98.42 Cataract extraction status, left eye; Z98.41 Cataract extraction status, right eye; Z98.890 Other specified postprocedural states; Z85.89 Personal history of malignant neoplasm of other organs and systems; Z80.0 Family history of malignant neoplasm of digestive organs; Z81.8 Family history of other mental and behavioral disorders; Z80.42 Family history of malignant neoplasm of prostate; Z79.84 Long term (current) use of oral hypoglycemic drugs; Z79.899 Other long term (current) drug therapy; Z88.5 Allergy status to narcotic agent; Z88.0 Allergy status to penicillin; Z88.2 Allergy status to sulfonamides; Z88.8 Allergy status to other drugs, medicaments and biological substances
CPT/HCPCS: 88305; 45378; 43239; J2704

== ENCOUNTER → 2021-05-25 | Outpatient (CLI) | payer MEDICARE ==
--- NOTE | 2021-05-25 15:42 | US ---
EXAMINATION TYPE: US kidneys/renal and bladder DATE OF EXAM: 05/25/2021 COMPARISON: Multiple CTs. Most recent = 08/29/19 CLINICAL HISTORY: R33.9 URINARY RETENTION. EXAM MEASUREMENTS: Right Kidney: 13.6 x 6.0 x 5.9 cm Left Kidney: 13.0 x 6.4 x 5.7 cm Post Void Residual Volume: 1406 mL Right Kidney: No hydronephrosis or masses seen 2 small 1.1 cm each inferior pole simple appearing cys ts Left Kidney: No hydronephrosis or masses seen Bladder: ? Posterior bladder diverticulum Bilateral Jets seen: No Normal Post Void Residual: No IMPRESSION: 1. Small inferior pole right renal cysts. 2. Possible urinary bladder diverticulum.
== END | disposition home or self-care (01) ==
LOC: RADUSWWP 14:49
PROVIDERS: ATTEND Urology
DX: N28.1 Cyst of kidney, acquired (principal)
CPT/HCPCS: 76770

== ENCOUNTER → 2021-05-25 | Outpatient (CLI) | payer MEDICARE ==
--- NOTE | 2021-05-25 15:57 | XR ---
EXAMINATION TYPE: XR abdomen 1V DATE OF EXAM: 05/25/2021 COMPARISON: NONE HISTORY: Pain TECHNIQUE: One view abdominal series FINDINGS: The osseous structures are intact. The bowel gas pattern is nonspecific. Lung bases are clear. Surg ical clip right upper quadrant. Hypertrophic and degenerative change of the spine. Arthropathy of the hips. IMPRESSION: 1. Nonspecific abdomen.
== END | disposition home or self-care (01) ==
LOC: RADXRMAIN 14:53
PROVIDERS: ATTEND Family Medicine
DX: R10.9 Unspecified abdominal pain (principal)
CPT/HCPCS: 74018

== ENCOUNTER → 2021-07-07 | Outpatient (CLI) | payer MEDICARE ==
--- NOTE | 2021-07-08 10:09 | ECHOF ---
Referral Reason:R07.9 chest pain MEASUREMENTS -------- HEIGHT: 182.9 cm WEIGHT: 127.0 kg BP: RVIDd: 3.4 cm (< 3.3) IVSd: 1.2 cm (0.6 - 1.1) LVIDd: 5.1 cm (3.9 - 5.3) LVPWd: 1.3 cm (0.6 - 1.1) IVSs: 1.9 cm LVIDs: 3.0 cm LVPWs: 2.1 cm LAESV Index (A-L): 15.67 ml/m Ao Diam: 4.0 cm (2.0 - 3.7) AV Cusp: 1.3 cm (1.5 - 2.6) LA Diam: 2.7 cm (2.7 - 3.8) MV EXCURSION: 17.007 mm (> 18.000) MV EF SLOPE: 50 mm/s (70 - 150) EPSS: 0.3 cm MV E Bradley: 0.72 m/s MV DecT: 207 ms MV A Bradley: 0.89 m/s MV E/A Ratio: 0.82 AV maxP.58 mmHg AV meanP.24 mmHg RAP: 5.00 mmHg RVSP: 12.51 mmHg FINDINGS -------- This was a technically good study. The left ventricular size is normal. There is mild concentric left ventricular hypertrophy. Overa ll left ventricular systolic function is normal with, an EF between 55 - 60 %. The diastolic fillin g pattern is normal for the age of the patient 10.96. The right ventricle is mildly enlarged. The left atrial size is normal. Normal LA size by volume 22+/-6 ml/m2. The right atrial size is normal. Interatrial and interventricular septum intact. Aortic valve is trileaflet and is mildly thickened. There is mild aortic stenosis present. Peak/m bright gradient across the Aortic Valve is 14.58mmHg / 8.24mmHg. The mitral valve is normal. There is trace mitral regurgitation. The tricuspid valve appears structurally normal. Mild tricuspid regurgitation present. Right vent ricular systolic pressure is normal at < 35 mmHg. There is no pulmonic regurgitation present. 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 Normal inferior vena cava with normal inspiratory collapse consistent with estimated right atrial pre ssure of 5 mmHg. There is no pericardial effusion. CONCLUSIONS -------- 1. The left ventricular size is normal. 2. There is mild concentric left ventricular hypertrophy. 3. Overall left ventricular systolic function is normal with, an EF between 55 - 60 %. 4. The diastolic filling pattern is normal for the age of the patient 10.96 5. The right ventricle is mildly enlarged. 6. Aortic valve is trileaflet and is mildly thickened. 7. There is mild aortic stenosis present. 8. Peak/mean gradient across the Aortic Valve is 14.58mmHg / 8.24mmHg. 9. There is trace mitral regurgitation. 10. Mild tricuspid regurgitation present. 11. 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 12. There is no pericardial effusion. [employer]ER: Melony Deluna RDCS
== END | disposition home or self-care (01) ==
LOC: RADECHMAIN 08:08
PROVIDERS: ATTEND Family Medicine
DX: I35.0 Nonrheumatic aortic (valve) stenosis (principal)
CPT/HCPCS: 93306

== ENCOUNTER → 2021-08-06 | Outpatient (CLI) | payer MEDICARE ==
[~2021-08-06] MED LIST changes: -LACTATED RINGERS 1,000 ML IV SCH; -LIDOCAINE 1% (10MG/ML) FOR IV START INTRADERMA PRN; +REGADENOSON 0.4 MG/5 ML SYRINGE IV ONE
--- NOTE | 2021-08-06 11:51 | NM ---
EXAMINATION TYPE: NM stress lexiscan cardiolite DATE OF EXAM: 08/06/2021 COMPARISON: NONE HISTORY: Chest pain TECHNIQUE: After the intravenous administration of 10.7 mCi Tc 99m Sestamibi - Cardiolite resting SP ECT images acquired 60 minutes post injection. The patient received 0.4mg Lexiscan, 26.3 mCi Tc 99m Sestamibi - Stress images obtained [address] injection FINDINGS: Review of stress and rest SPECT images demonstrates no distinct perfusion abnormality. Gated analysi s shows normal wall motion with an estimated left ventricular ejection fraction of 81 %. IMPRESSION: No scintigraphic evidence for reversible ischemia.
--- NOTE | 2021-08-06 18:12 | EST ---
EXERCISE STRESS AGE: 61 SEX: M HT: 6'1" WT: 290 lbs. PROTOCOL: Lexiscan STAGE: NA DURATION OF EXERCISE: NA HEART RATE REST: 88 BLOOD PRESSURE REST: 147/74 MAXIMUM HEART RATE ACHIEVED: 102 MAXIMUM BLOOD PRESSURE: 147/74 85% MPHR: 131 100% MPHR: 160 METS: NA INDICATIONS: Chest pain RESULTS: Baseline EKG revealed normal sinus rhythm without significant ST-T changes. Patient was administered Lexiscan as per protocol. Heart rate changed from 88 to 102 beats per minute. Blood pressure changed from 147/74 to 123/66. EKG remained unremarkable. By EKG criteria, this is an unremarkable Lexiscan stress test. The nuclear scan results. Which are more pertinent, will be reported by the radiologist. MMODL / IJN: [id number] /
== END | disposition home or self-care (01) ==
LOC: RADNMMAIN 08:16
PROVIDERS: ATTEND Family Medicine
DX: R07.9 Chest pain, unspecified (principal)
CPT/HCPCS: 93017; 78452; A9500; J2785

== ENCOUNTER 2021-09-04 16:43 | Emergency (ER) | payer MEDICARE ==
[2021-09-04 18:12] VITALS: RESP 18
[2021-09-04] MEDS ORDERED: DOXYCYCLINE 100 MG CAP PO STA (18:42)
[2021-09-04] MEDS ORDERED: KETOROLAC 15 MG/ML 1 ML VIAL IM STA (18:45)
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
[2021-09-04 19:27] VITALS: BP 130/74; PULSE 99; TEMP 98
== END 2021-09-04 19:27 | disposition home or self-care (01) ==
LOC: EC 16:43
DX: L73.2 Hidradenitis suppurativa (principal); J44.9 Chronic obstructive pulmonary disease, unspecified; E11.9 Type 2 diabetes mellitus without complications; K21.9 Gastro-esophageal reflux disease without esophagitis; E78.5 Hyperlipidemia, unspecified; I10 Essential (primary) hypertension; M19.90 Unspecified osteoarthritis, unspecified site; F41.9 Anxiety disorder, unspecified; F31.9 Bipolar disorder, unspecified; F25.9 Schizoaffective disorder, unspecified; F17.200 Nicotine dependence, unspecified, uncomplicated; Z79.84 Long term (current) use of oral hypoglycemic drugs; Z88.0 Allergy status to penicillin; Z88.2 Allergy status to sulfonamides; Z88.5 Allergy status to narcotic agent; Z86.73 Personal history of transient ischemic attack (TIA), and cerebral infarction without residual deficits; Z90.49 Acquired absence of other specified parts of digestive tract
CPT/HCPCS: 99282; 96372; J1885

== ENCOUNTER 2021-09-18 18:17 | Inpatient (IN) | payer MEDICARE ==
[2021-09-18 18:39] LABS: Glucose,Whole Blood 136 mg/dL (75-99)
[2021-09-18] MEDS ORDERED: SODIUM CHLORIDE 0.9% 500 ML 500 ML IV STA (18:47)
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
[2021-09-18 19:27] LABS: Basophils % (A) 0 %; Eosinophils % (A) 1 %; HCT 37.3 % (39.0-53.0); HGB 11.8 gm/dL (13.0-17.5); Lymphocytes # (A) 1.5 k/uL (1.0-4.8); Lymphocytes % (A) 24 %; MCH 31.9 pg (25.0-35.0); MCHC 31.8 g/dL (31.0-37.0); MCV 100.4 fL (80.0-100.0); Macrocytosis Slight; Mean Platelet Volume 7.5; Monocytes # (A) 0.4 k/uL (0-1.0); Monocytes % (A) 6 %; Neutrophils # (A) 4.3 k/uL (1.3-7.7); Neutrophils % (A) 68 %; Platelet Count 111 k/uL (150-450); RBC 3.71 m/uL (4.30-5.90); RDW 14.5 % (11.5-15.5); WBC 6.3 k/uL (3.8-10.6)
[2021-09-18 19:35] LABS: INR 1.1 (<1.2); Prothrombin Time 11.2 sec (9.0-12.0)
[2021-09-18 19:36] LABS: ALT 15 U/L (4-49); AST 24 U/L (17-59); African American GFR (CKD) 10 (>60 ml/min/1.73 sqM); Albumin 3.4 g/dL (3.5-5.0); Alcohol <10 mg/dL; Alkaline Phosphatase 76 U/L (38-126); Anion Gap 12 mmol/L; Calcium 9.2 mg/dL (8.4-10.2); Carbon Dioxide 16 mmol/L (22-30); Chloride 105 mmol/L (98-107); Glucose 111 mg/dL (74-99); Non-African American GFR(CKD) 9 (>60 ml/min/1.73 sqM); Sodium 133 mmol/L (137-145); Total Bilirubin 0.3 mg/dL (0.2-1.3); Total Protein 7.4 g/dL (6.3-8.2)
[2021-09-18 19:42] LABS: Partial Thromboplastin Time 21.5 sec (22.0-30.0)
[2021-09-18 19:50] LABS: Potassium 8.2 mmol/L (3.5-5.1)
[2021-09-18 19:51] LABS: Blood Urea Nitrogen 130 mg/dL (9-20)
--- NOTE | 2021-09-18 19:57 | XR ---
EXAMINATION TYPE: XR chest 2V DATE OF EXAM: 09/18/2021 7:39 PM COMPARISON: Chest radiograph 04/08/2019. CLINICAL INDICATION:Male, 61 years old with history of syncope, TECHNIQUE: Frontal and lateral views of the chest. FINDINGS: Lungs/Pleura: There is no evidence of pleural effusion, focal consolidation, or pneumothorax. Pulmonary vascularity: Unremarkable. Heart/mediastinum: Cardiomediastinal silhouette is unremarkable. Musculoskeletal: No acute osseous pathology. IMPRESSION: Low lung volumes without evidence for acute process.
[2021-09-18] MEDS ORDERED: DEXTROSE 50% SYRINGE 50 ML IVP STA ×2 (19:59→23:48)
[2021-09-18] MEDS ORDERED: INSULIN REGULAR 100 UNIT/ML VIAL (IV) IV ONE (19:59)
[2021-09-18] MEDS ORDERED: CALCIUM CHLORIDE 100 MG/ML 10 ML SYRINGE IVP STA (20:00)
[2021-09-18] MEDS ORDERED: SODIUM CHLORIDE 0.9% 1,000 ML IV ONE ×3 (20:01→23:48)
--- NOTE | 2021-09-18 20:01 | XR ---
EXAMINATION TYPE: XR elbow complete LT DATE OF EXAM: 09/18/2021 7:39 PM INDICATION: Patient age:Male; 61 years old; Reason for study: fall/injury; COMPARISON: None TECHNIQUE: The left elbow was examined in AP, lateral, and oblique projections. FINDINGS: Single view demonstrates step-off of the radial head suggesting nondisplaced radial head fr acture. No evidence of joint dislocation, or soft tissue swelling is noted. No evidence of joint eff usion is present. IMPRESSION: Intra-articular radial head fracture suspected with cortical step-off seen on one view. Correlate wit h point tenderness.
--- NOTE | 2021-09-18 20:05 | XR ---
EXAMINATION TYPE: XR ankle complete RT DATE OF EXAM: 09/18/2021 7:39 PM INDICATION: Patient age:Male; 61 years old; Reason for study: fall/injury; [facility]. COMPARISON: None TECHNIQUE: The right ankle is imaged in 3 projections. FINDINGS: There is no evidence of acute osseous pathology. The joint spaces are well-preserved without evidenc e of subluxation or dislocation. Kager's fat pad is intact. Soft tissues are within normal limits. No radiopaque foreign bodies are identified. A calcaneal Achilles enthesophyte and plantar spur present . Calcifications involving the lateral malleolus suggestive of remote injury. Additional calcified fo ci in the expected location of the deltoid ligament likely representing remote injury. Metallic curvi linear densities within the lateral aspect of the fifth metatarsal. IMPRESSION: 1. No evidence of acute fracture. 2. Lateral malleolus chronic appearing injury as well as remote deltoid ligament injury suggested.
--- NOTE | 2021-09-18 20:05 | XR ---
EXAMINATION TYPE: XR foot complete RT DATE OF EXAM: 09/18/2021 7:39 PM INDICATION: Patient age:Male; 61 years old; Reason for study: fall/injury; PHH. COMPARISON: 09/11/2009 TECHNIQUE: The right foot was examined in the AP, oblique, and lateral projections. FINDINGS: No evidence of any acute osseous pathology. No evidence of soft tissue swelling. Joints are preserve d. Metallic curvilinear densities within the lateral aspect of the fifth metatarsal. IMPRESSION: No evidence of acute fracture.
[2021-09-18] MEDS ORDERED: SODIUM BICARB 8.4% 50 ML SYR (1 MEQ/ML) IV STA ×2 (20:11→21:07)
[2021-09-18] MEDS ORDERED: SODIUM POLYSTYRENE SULFONATE 15 GM/60 ML BOTTLE PO STA (20:11)
[2021-09-18] MEDS ORDERED: ALBUTEROL NEB (CONC) 2.5 MG/0.5 ML INHALATION STA (20:11)
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
[2021-09-18] MEDS ORDERED: SODIUM ZIRCONIUM CYCLOSILICATE 10 GM PACKET PO ONE (21:08)
[2021-09-18 21:18] LABS: Glucose,Whole Blood 104 mg/dL (75-99)
--- NOTE | 2021-09-18 21:31 | CT ---
EXAMINATION TYPE: CT abdomen pelvis wo con CT DLP: 1391.4 mGycm, Automated exposure control for dose reduction was used. DATE OF EXAM: 09/18/2021 9:09 PM COMPARISON: CT urogram 03/15/2020. CLINICAL INDICATION:Male, 61 years old with history of vomiting; abdominal pain; flank pain TECHNIQUE: Standard CT of the abdomen and pelvis without IV or oral contrast. Lack of IV or oral co ntrast limits evaluation of solid and hollow organ viscera. Coronal and sagittal reformats were perfo rmed. FINDINGS: Motion limits evaluation. LOWER CHEST: Unremarkable ABDOMEN LIVER: Unremarkable GALLBLADDER AND BILE DUCTS: The gallbladder is surgically absent. PANCREAS: Unremarkable. SPLEEN: Post.. ADRENAL GLANDS: Unremarkable. KIDNEYS AND URETERS: No evidence of hydronephrosis or renal calculus. The ureters are unremarkable. Persistent bilateral infiltrates fat stranding is noted. PELVIS BLADDER: Left posterior bladder diverticulum REPRODUCTIVE: Unremarkable. ABDOMEN & PELVIS STOMACH AND BOWEL: No evidence of bowel obstruction. PERITONEUM: No evidence of pneumoperitoneum or free fluid. VASCULATURE: Mild atherosclerotic calcifications are present throughout the abdominal aorta and its b ranches. MUSCULOSKELETAL: No acute osseous abnormalities LYMPH NODES: No gross evidence for lymphadenopathy. SOFT TISSUE/ABDOMINAL WALL: Unremarkable IMPRESSION: 1. No evidence for renal calculus or obstructive uropathy. 2. Dilated urinary bladder with similar diverticulum. If there is concern for bladder outlet obstruct ion consider Ogden catheter placement.
[2021-09-18 22:51] LABS: Glucose,Whole Blood 33 mg/dL (75-99)
[2021-09-18 22:51] LABS: Glucose,Whole Blood 32 mg/dL (75-99)
[2021-09-18 23:05] LABS: Glucose,Whole Blood 114 mg/dL (75-99)
[2021-09-18 23:37] LABS: Glucose,Whole Blood 79 mg/dL (75-99)
[2021-09-19 00:11] LABS: Glucose,Whole Blood 78 mg/dL (75-99)
[2021-09-19 00:18] LABS: Appearance,Urine Clear (Clear); Bilirubin,Urine Negative (Negative); Blood,Urine Negative (Negative); Color,Urine Yellow; Glucose,Urine (UA) Negative (Negative); Ketones,Urine Negative (Negative); Leukocyte Esterase,Urine Negative (Negative); Nitrite,Urine Negative (Negative); PH, Urine 5.5 (5.0-8.0); Protein,Urine Negative (Negative); Specific Gravity,Urine 1.016 (1.001-1.035); Urobilinogen,Urine <2.0 mg/dL (<2.0)
[2021-09-19] MEDS ORDERED: NALOXONE 0.4 MG/ML 1 ML VIAL IV PRN (00:24)
[2021-09-19] MEDS: DEXTROSE 5% IN WATER 1,000 ML with SODIUM BICARB (1 MEQ/ML) 150 ML IV SCH ×2 (00:53→09:12)
[2021-09-19] MEDS ORDERED: SODIUM CHLORIDE 0.9% 1,000 ML IV ONE (01:02)
[2021-09-19 01:28] LABS: Basophils % (A) 0 %; Eosinophils % (A) 1 %; HCT 27.3 % (39.0-53.0); Lymphocytes # (A) 1.1 k/uL (1.0-4.8); Lymphocytes % (A) 22 %; MCHC 32.3 g/dL (31.0-37.0); MCV 102.2 fL (80.0-100.0); Macrocytosis Slight; Mean Platelet Volume 7.7; Monocytes # (A) 0.4 k/uL (0-1.0); Monocytes % (A) 7 %; Neutrophils # (A) 3.4 k/uL (1.3-7.7); Neutrophils % (A) 69 %; RBC 2.67 m/uL (4.30-5.90)
[2021-09-19 01:32] LABS: HGB 8.8 gm/dL (13.0-17.5)
[2021-09-19 01:38] LABS: Calcium 7.3 mg/dL (8.4-10.2)
[2021-09-19 01:41] LABS: Potassium 6.5 mmol/L (3.5-5.1)
[2021-09-19 03:13] LABS: Platelet Count 75 k/uL (150-450)
[2021-09-19 05:36] LABS: HCT 25.5 % (39.0-53.0); HGB 8.1 gm/dL (13.0-17.5); MCH 32.5 pg (25.0-35.0); MCHC 31.8 g/dL (31.0-37.0); MCV 102.2 fL (80.0-100.0); Macrocytosis Slight; RBC 2.49 m/uL (4.30-5.90); RDW 14.4 % (11.5-15.5)
[2021-09-19 05:40] LABS: Platelet Count 70 k/uL (150-450)
[2021-09-19 05:57] LABS: Potassium 4.9 mmol/L (3.5-5.1)
[2021-09-19 06:05] LABS: Calcium 6.1 mg/dL (8.4-10.2)
[2021-09-19 06:24] LABS: Glucose,Whole Blood 103 mg/dL (75-99)
[2021-09-19 07:43] LABS: Glucose,Whole Blood 99 mg/dL (75-99)
[2021-09-19 08:10] LABS: Basophils % (A) 0 %; Calcium 8.3 mg/dL (8.4-10.2); Eosinophils % (A) 1 %; HCT 32.5 % (39.0-53.0); HGB 10.6 gm/dL (13.0-17.5); Lymphocytes # (A) 1.7 k/uL (1.0-4.8); Lymphocytes % (A) 30 %; MCHC 32.7 g/dL (31.0-37.0); Macrocytosis Slight; Mean Platelet Volume 7.9; Monocytes # (A) 0.3 k/uL (0-1.0); Monocytes % (A) 5 %; Neutrophils # (A) 3.6 k/uL (1.3-7.7); Neutrophils % (A) 63 %; RBC 3.21 m/uL (4.30-5.90); RDW 14.8 % (11.5-15.5); WBC 5.8 k/uL (3.8-10.6)
[2021-09-19 08:13] LABS: Platelet Count 84 k/uL (150-450)
[2021-09-19] MEDS: ACETAMINOPHEN TAB 325 MG TAB PO PRN (09:02)
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
[2021-09-19] MEDS ORDERED: SODIUM ZIRCONIUM CYCLOSILICATE 10 GM PACKET PO ONE (10:00)
[2021-09-19 11:09] LABS: Glucose,Whole Blood 92 mg/dL (75-99)
[2021-09-19 11:52] LABS: Potassium 5.8 mmol/L (3.5-5.1)
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
[2021-09-19 15:17] LABS: Calcium 8.2 mg/dL (8.4-10.2); Potassium 5.8 mmol/L (3.5-5.1)
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
[2021-09-19 16:45] LABS: Glucose,Whole Blood 107 mg/dL (75-99)
[2021-09-19 16:53] LABS: % Iron Saturation 46.55 (15.00-50.00)
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
[2021-09-19 21:15] LABS: Glucose,Whole Blood 86 mg/dL (75-99)
--- NOTE | 2021-09-19 21:50 | US ---
EXAMINATION TYPE: US carotid duplex BILAT DATE OF EXAM: 09/19/2021 COMPARISON: NONE CLINICAL HISTORY: syncope . Syncope, no h/o stroke EXAM MEASUREMENTS: RIGHT: Peak Systolic Velocity (PSV) cm/sec ----- Right CCA: 104.1 ----- Right ICA: 119.8 ----- Right ECA: 65.1 ICA/CCA ratio: 1.2 RIGHT: End Diastole cm/sec ----- Right CCA: 25.6 ----- Right ICA: 40.9 ----- Right ECA: 14.5 LEFT: Peak Systolic Velocity (PSV) cm/sec ----- Left CCA: 94.3 ----- Left ICA: 81.0 ----- Left ECA: 108.7 ICA/CCA ratio: 0.9 LEFT: End Diastole cm/sec ----- Left CCA: 22.9 ----- Left ICA: 28.2 ----- Left ECA: 19.9 VERTEBRALS (direction of flow): Right Vertebral: Antegrade Left Vertebral: Antegrade Rhythm: Normal Heterogeneous plaque with no stenosis seen IMPRESSION: Heterogeneous plaque with less than 50% stenosis of the bilateral ICAs. Criteria for Assigning % of Stenosis / Diameter reduction (Estimation based on the indirect measurements of the internal carotid artery velocities (ICA PSV). 1. Normal (no stenosis)=ICA PSV < 125 cm/s: ratio < 2.0: ICA EDV<40 cm/s. 2. Less than 50% stenosis=ICA PSV < 125 cm/s: ratio < 2.0: ICA EDV<40 cm/s. 3. 50 to 69% stenosis=ICA PSV of 125 to 230 cm/s: ration 2.0 ? 4.0: ICA EDV 40-100 cm/s. 4. Greater than 70% stenosis to near occlusion= ICA PSV > 230 cm/s: ratio > 4.0: ICA EDV > 100 cm/s. 5. Near occlusion= ICA PSV velocities may be low or undetectable: variable ratio and ICA EDV. 6. Total occlusion=unable to detect flow.
[2021-09-20] MEDS: DEXTROSE 5% IN WATER 1,000 ML with SODIUM BICARB (1 MEQ/ML) 150 ML IV SCH ×2 (00:31→11:52)
[2021-09-20 07:10] LABS: Glucose,Whole Blood 103 mg/dL (75-99)
[2021-09-20 09:15] LABS: Glucose,Whole Blood 128 mg/dL (75-99)
[2021-09-20 11:33] LABS: Glucose,Whole Blood 97 mg/dL (75-99)
[2021-09-20] MEDS: ACETAMINOPHEN TAB 325 MG TAB PO PRN ×2 (11:52→22:37)
[2021-09-20 12:15] LABS: African American GFR (CKD) 32 (>60 ml/min/1.73 sqM); Anion Gap -1 mmol/L; Blood Urea Nitrogen 70 mg/dL (9-20); Calcium 8.1 mg/dL (8.4-10.2); Carbon Dioxide 26 mmol/L (22-30); Chloride 112 mmol/L (98-107); Glucose 90 mg/dL (74-99); Magnesium 1.7 mg/dL (1.6-2.3); Non-African American GFR(CKD) 27 (>60 ml/min/1.73 sqM); Potassium 5.3 mmol/L (3.5-5.1); Sodium 137 mmol/L (137-145)
--- NOTE | 2021-09-20 12:15 | P.PN ---
Subjective Patient is seen in follow-up for acute kidney injury. Labs from today are pending. Nonoliguric. Denies chest pain or shortness of breath. Oral intake fair. Vital signs are stable. General: The patient appeared well nourished and normally developed. HEENT: Head exam is unremarkable. LUNGS: Breath sounds decreased. HEART: Rate and Rhythm are regular. ABDOMEN: Soft, no distention. EXTREMITITES: No edema. Objective - Vital Signs Vital signs: Vital Signs Temp 98.1 F 09/20/21 08:48 Pulse 75 09/20/21 08:48 Resp 16 09/20/21 08:48 BP 129/76 09/20/21 08:48 Pulse Ox 94 L 09/20/21 08:48 Intake & Output 09/19/21 09/20/21 09/20/21 18:59 06:59 18:59 Output Total 700 1800 1600 Balance -700 -1800 -1600 Weight 124.5 kg Output: Urine 700 1800 1600 Other: Voiding Method Indwelling Catheter Indwelling Catheter Indwelling Catheter # Bowel Movements 1 - Labs CBC & Chem 7: 09/19/21 07:38 09/19/21 14:40 Labs: Abnormal Lab Results - Last 24 Hours (Table) 09/19/21 09/19/21 09/19/21 Range/Units 11:15 14:40 16:43 Potassium 5.8 H (3.5-5.1) mmol/L Chloride 112 H (98-107) mmol/L Carbon Dioxide 19 L (22-30) mmol/L BUN 99 H (9-20) mg/dL Creatinine 3.97 H (0.66-1.25) mg/dL Glucose 126 H (74-99) mg/dL POC Glucose (mg/dL) 107 H (75-99) mg/dL Calcium 8.2 L (8.4-10.2) mg/dL TIBC 200 L (228-460) ug/dL Transferrin 143.0 L (204.0-354.0) mg/dL 09/20/21 09/20/21 Range/Units 07:10 09:13 Potassium (3.5-5.1) mmol/L Chloride (98-107) mmol/L Carbon Dioxide (22-30) mmol/L BUN (9-20) mg/dL Creatinine (0.66-1.25) mg/dL Glucose (74-99) mg/dL POC Glucose (mg/dL) 103 H 128 H (75-99) mg/dL Calcium (8.4-10.2) mg/dL TIBC (228-460) ug/dL Transferrin (204.0-354.0) mg/dL Assessment and Plan Plan: Assessment: 1. Acute kidney injury secondary to ATN secondary to hypotension, NSAIDs as well as use of SEAN inhibitor. Creatinine was 6.45 on admission and noted 3.97 as of yesterday. Baseline creatinine near 1. UA benign. No hydronephrosis noted on CAT scan. 2. Metabolic acidosis secondary to acute kidney injury. 3. Hyperkalemia secondary to acute kidney injury, metabolic acidosis nonsteroidals as well as SEAN inhibitor. 4. Hypovolemic hyponatremia improved with IV hydration. Plan: Maintain bicarb drip. Morning labs pending. Continue to monitor renal function and urine output. Avoid nephrotoxins. Follow-up echocardiogram.
[2021-09-20] MEDS: ZIPRASIDONE 40 MG CAP PO SCH ×2 (12:36→20:22)
[2021-09-20] MEDS: TAMSULOSIN 0.4 MG CAP.ER.24H PO SCH ×2 (12:36→20:22)
[2021-09-20] MEDS: DIVALPROEX 500 MG TABLET.DR PO SCH ×2 (12:36→20:22)
[2021-09-20] MEDS: SODIUM CHLORIDE 0.9% 1,000 ML IV SCH ×2 (14:21→22:37)
--- NOTE | 2021-09-20 16:23 | P.PN ---
Subjective Progress Note Date: 09/20/21 HISTORY OF PRESENT ILLNESS this is a 61-year-old pleasant gentleman, patient of Dr. Bartholomew. Known his tory of diabetes mellitus type 2, COPD seizures, obstructive sleep apnea, and cancer. Admitted to the emergency room, secondary to weakness and falls at home. Patient cannot relate as to why he fell, complaining of left arm pain,was found to have a left nondisplaced radial head fracture, at the level of the elbow. This has been splinted, also was found to havesevere elevation of BUN/creatinine, with BUN of 102, creatinine of3.97, baseline was approximately 1.7 in 08/24/2021, prior to that it was 1.1 in 07/14/2020.patient denies any fever or chills, nausea vomiting no diarrhea, patient has a rash in the right lower abdomen, without any drainage, patient denies any lightheadedness or dizziness whenever he stands up, patient has a resting tremor, without diagnoses of Parkinson's. in the emergency room, CT of the brain and cervical spine was done, that shows cerebral white matter change within the left posterior frontal lobe, dating back from 2011. There is no power plant engineer, hemorrhage, or mass effect, cerebellum is unremarkable, no midline shift, there is atherosclerotic calcification of the cranial vessels, mastoids are opacified on the right side, no depressed skull fracture. Cervical spine CT, shows remote fracture of the left clavicle, with nonunion.no evidence of cervical spine fracture . Labs shows a BUN of 104, creatinine of 4.28,hemoglobin 8.1 and double basic count of 5.0, sodium 132, glucose of 735, calcium at 6.1consults were made with urology, Dr. John for bladder outlet obstruction, has urinary retention, with the bladder markedly distended above the umbilicus,no hydronephrosis, suspicion for bladder outlet obstruction, she also he also has a left posterior bladder diverticulum, which has been present since 2017. Ogden catheter was placed and was clamped after 1 Lfor his slow voiding, as the patient became hypotensive 09/20: Is seen today on the [facility] floor. Repeat blood work reveals BUN 70 and creatinine 2.46, potassium 5.3. Blood sugars running between 8628. Valproic acid 17. Hemoglobin A1c 5.9. Patient will be resumed on his home medications. Patient has been seen by nephrology and continued on bicarb drip. Patient is also followed by pulmonary. Patient did not require intensive care management. Patient also also been seen by orthopedics for radial fracture right side with recommendations for splint/sling, encourage finger range of motion is much as possible, elevate and ice and follow-up in the office in one week. Urology is recommending maintenance of Ogden catheter throughout hospitalization and may require intermittent self-catheterization, follow-up in the office for Ogden catheter removal. Carotid ultrasound revealed plaque with less than 50% stenosis of bilateral ICAs. Echocardiogram and EEG are pending. REVIEW OF SYSTEMS Constitutional: No fever, no chills, no night sweats. No weight change. Reports weakness, fatigue or lethargy. No daytime sleepiness. EENT: No headache. No blurred vision or double vision, no loss of vision. No loss of Hearing, no ringing in the ears, no dizziness. No nasal drainage or congestion. No epistaxis. No sore throat. Lungs: No shortness of breath, cough, no sputum production. No wheezing. Cardiovascular: No chest pain, no lower extremity edema. No palpitations. No paroxysmal nocturnal dyspnea. No orthopnea. No lightheadedness or dizziness. No syncopal episodes. Abdominal: No abdominal pain. No nausea, vomiting. No diarrhea. No constipation. No bloody or tarry stools. No loss of appetite. Genitourinary: No dysuria, increased frequency, urgency. No urinary retention. Musculoskeletal: No myalgias. No muscle weakness, no gait dysfunction, no frequent falls. No back pain. No neck pain. Reports right arm pain Integumentary: No wounds, no lesions. No rash or pruritus. No unusual bruising. No change in hair or nails. Neurologic: No aphasia. No facial droop. No change in mentation. No head injury. No headache. No paralysis. No paresthesia. Psychiatric: No depression. No anxiety. No mood swings. Endocrine: No abnormal blood sugars. No weight change. No excessive sweating or thirst. No cold intolerance. PHYSICAL EXAMINATION Gen: This is [ ] HEENT: Head is atraumatic, normocephalic. Pupils equal, round. Sclerae is anicteric. NECK: Supple. No JVD. No lymphadenopathy. No thyromegaly. LUNGS: Clear to auscultation. No wheezes or rhonchi. No intercostal retractions. HEART: Regular rate and rhythm. No murmur. ABDOMEN: Soft. Bowel sounds are present. No masses. No tenderness. EXTREMITIES: No pedal edema. No calf tenderness. NEUROLOGICAL: Patient is awake, alert and oriented x3. Cranial nerves 2 through 12 are grossly intact. ASSESSMENT AND PLAN 1. Fall, with unknown events leading to the fall, patient is a poor historian, hold for known history of seizures, coming in with severe hyperglycemia, with blood sugars over 700, and hyperkalemia EEG of the brain to be done, and echocardiogram check for orthostatics daily, 2. Diabetes mellitus type 2, with hyperglycemia severe possibly related to D5 IV fluids, polyuria, A1c is 5.9. history of hypoglycemia in the past,discontinue Glucophage, secondary to severe kidney failure,Accu-Cheks, blood sugars are 92-103 currently 3. Left radial head fracture, currently splinted,long with an left arm sling orthopedics has been consulted Dr. Lewis, follow up in the office in one week 4. History of seizure disorder on Depakote, 1500 mg twice a day, check for fas ting levels 5. Prior history of syncope in the past, was thought to be related to hypoglycemia, need to monitor for arrhythmias, might need a loop recorder, on discharge. Telemetry monitoring orthostatic vitals 6. History of seasonal affective disorderon Geodon, 40 twice a day, Prozac 40 mg daily, and Depakote 1500 mg twice a day 7.bladder outlet obstruction, with urinary retention, Dr. Acosta has been consulted, he recommends that patient might do well with chronic indwelling Ogden catheter, follow-up in the office for Ogden removal and teaching on intermittent cath, 8.acute kidney failure, secondary to postobstructive uropathy, no hydronephrosis,consult with Dr. Schneider for serial creatinine, relieve obstruction, with indwelling Ogden catheter anemia of chronic disease hyperkalemia secondary to acute kidney injury DVT prophylaxis GI prophylaxis COVID-19 testing negative. Patient has been hospitalized during a pandemic. DISCHARGE PLAN Subacute rehab at [facility] or [facility], [facility] is following Impression and plan of care have been directed as dictated by the signing physician. Elsie Harris nurse practitioner acting as scribe for signing physician. Objective - Vital Signs Vital signs: Vital Signs Temp 98.1 F 09/20/21 08:48 Pulse 75 09/20/21 08:48 Resp 16 09/20/21 08:48 BP 129/76 09/20/21 08:48 Pulse Ox 94 L 09/20/21 08:48 Intake & Output 09/19/21 09/20/21 09/20/21 18:59 06:59 18:59 Output Total 700 1800 1600 Balance -700 -1800 -1600 Weight 124.5 kg Output: Urine 700 1800 1600 Other: Voiding Method Indwelling Catheter Indwelling Catheter Indwelling Catheter # Bowel Movements 1 - Labs CBC & Chem 7: 09/19/21 07:38 09/20/21 04:11 Labs: Abnormal Lab Results - Last 24 Hours (Table) 09/19/21 09/19/21 09/19/21 Range/Units 11:15 14:40 16:43 Potassium 5.8 H (3.5-5.1) mmol/L Chloride 112 H (98-107) mmol/L Carbon Dioxide 19 L (22-30) mmol/L BUN 99 H (9-20) mg/dL Creatinine 3.97 H (0.66-1.25) mg/dL Glucose 126 H (74-99) mg/dL POC Glucose (mg/dL) 107 H (75-99) mg/dL Calcium 8.2 L (8.4-10.2) mg/dL TIBC 200 L (228-460) ug/dL Transferrin 143.0 L (204.0-354.0) mg/dL 09/20/21 09/20/21 Range/Units 07:10 09:13 Potassium (3.5-5.1) mmol/L Chloride (98-107) mmol/L Carbon Dioxide (22-30) mmol/L BUN (9-20) mg/dL Creatinine (0.66-1.25) mg/dL Glucose (74-99) mg/dL POC Glucose (mg/dL) 103 H 128 H (75-99) mg/dL Calcium (8.4-10.2) mg/dL TIBC (228-460) ug/dL Transferrin (204.0-354.0) mg/dL
[2021-09-20 16:31] LABS: Glucose,Whole Blood 212 mg/dL (75-99)
--- NOTE | 2021-09-20 19:41 | EEG ---
ELECTROENCEPHALOGRAM REPORT DATE OF SERVICE: 09/20/2021. CLINICAL HISTORY: This is a 61-year-old gentleman with a reported syncopal episode. The video EEG is obtained to evaluate for seizure epileptiform activity. RELEVANT MEDICATION: Depakote per the paint technician's note. EEG TYPE: A routine 21-channel EEG is performed with video using the 10/20 electrode placement system. DESCRIPTION: Awake state is only obtained. During awake state the posterior-dominant rhythm consists of 6.5 to 7 hertz activity that is well modulated and sustained. There is no physiological stage II sleep architecture. There is no focal slowing. There is moderate to significant myogenic artifact throughout, but mostly seen over the left hemisphere. Interictal and ictal is none. ACTIVATION PROCEDURE: Photic stimulation did not evoke a posterior driving response. There is no abnormality during the photic stimulation. Hyperventilation is not performed. CLINICAL INTERPRETATION: This is an abnormal routine EEG. The background slowing is suggestive of mild encephalopathy. There is no focal slowing, epileptiform discharges or seizure seen on the EEG. Clinical correlation is recommended. If there continues to be suspicion for seizure, then recommend prolonged EEG, and that could be done as outpatient. MMODL / IJN: [id number] / MTDD
[2021-09-20 20:27] LABS: Glucose,Whole Blood 134 mg/dL (75-99)
[2021-09-21 07:09] LABS: Glucose,Whole Blood 143 mg/dL (75-99)
[2021-09-21] MEDS: DIVALPROEX 500 MG TABLET.DR PO SCH (07:31)
[2021-09-21] MEDS: ZIPRASIDONE 40 MG CAP PO SCH (07:31)
[2021-09-21] MEDS: TAMSULOSIN 0.4 MG CAP.ER.24H PO SCH (07:32)
[2021-09-21] MEDS: ACETAMINOPHEN TAB 325 MG TAB PO PRN (07:32)
--- NOTE | 2021-09-21 07:51 | ECHOF ---
Referral Reason:syncope MEASUREMENTS -------- HEIGHT: 185.4 cm WEIGHT: 124.3 kg BP: 150/78 RVIDd: 3.7 cm (< 3.3) IVSd: 1.4 cm (0.6 - 1.1) LVIDd: 4.9 cm (3.9 - 5.3) LVPWd: 1.2 cm (0.6 - 1.1) IVSs: 1.9 cm LVIDs: 3.2 cm LVPWs: 1.7 cm LA Diam: 3.5 cm (2.7 - 3.8) LAESV Index (A-L): 34.40 ml/m Ao Diam: 4.1 cm (2.0 - 3.7) AV Cusp: 2.6 cm (1.5 - 2.6) MV EXCURSION: 16.659 mm (> 18.000) MV EF SLOPE: 69 mm/s (70 - 150) EPSS: 0.2 cm MV E Bradley: 0.90 m/s MV DecT: 208 ms MV A Bradley: 0.76 m/s MV E/A Ratio: 1.19 AV maxP.24 mmHg AV meanP.77 mmHg RAP: 5.00 mmHg RVSP: 30.33 mmHg FINDINGS -------- Sinus rhythm. This was a technically adequate study. The left ventricular size is normal. There is moderate concentric left ventricular hypertrophy. O verall left ventricular systolic function is normal with, an EF between 55 - 60 %. The right ventricle is mildly enlarged. LA is moderately dilated 34-39 ml/m2 The right atrium is normal in size. Interatrial and interventricular septum intact. There is mild aortic valve sclerosis. Trace to mild aortic regurgitation. There is mild aortic st enosis present. Peak/mean gradient across the Aortic Valve is 15.24mmHg / 8.77mmHg. The mitral valve is normal. Mild tricuspid regurgitation present. Right ventricular systolic pressure is normal at < 35 mmHg. There is no pulmonic regurgitation present. The aortic root is dilated measuring 4.1cm. Normal inferior vena cava with normal inspiratory collapse consistent with estimated right atrial pre ssure of 5 mmHg. There is no pericardial effusion. CONCLUSIONS -------- 1. The left ventricular size is normal. 2. There is moderate concentric left ventricular hypertrophy. 3. Overall left ventricular systolic function is normal with, an EF between 55 - 60 %. 4. The right ventricle is mildly enlarged. 5. LA is moderately dilated 34-39 ml/m2 6. There is mild aortic valve sclerosis. 7. Trace to mild aortic regurgitation. 8. There is mild aortic stenosis present. 9. Peak/mean gradient across the Aortic Valve is 15.24mmHg / 8.77mmHg. 10. Mild tricuspid regurgitation present. 11. The aortic root is dilated measuring 4.1cm. 12. There is no pericardial effusion. FUR CUTTING MACHINE OPERATOR: Kristie Watkins RDCS
[2021-09-21 08:05] VITALS: RESP 18
[2021-09-21] MEDS ORDERED: FLUoxetine HCL 20 MG CAP PO SCH (09:00)
[2021-09-21] MEDS ORDERED: FAMOTIDINE 20 MG TAB PO SCH (09:00)
[2021-09-21] MEDS ORDERED: FINASTERIDE 5 MG TAB PO SCH (09:00)
[2021-09-21 09:53] LABS: African American GFR (CKD) 58.3 (60.0-200.0); Anion Gap 8.4 mmol/L (10.00-18.00); BUN/Creat Ratio 25.64 Ratio (12.00-20.00); Blood Urea Nitrogen 38.2 mg/dL (9.0-27.0); Carbon Dioxide 20.4 mmol/L (20.0-27.5); Non-African American GFR(CKD) 50.3 (60.0-200.0)
[2021-09-21] MEDS ORDERED: HYDROPHILIC CREAM 180 GM TUBE TOPICAL SCH (10:15)
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
[2021-09-21 10:28] LABS: Magnesium 1.5 mg/dL (1.5-2.4)
[2021-09-21 11:45] LABS: Glucose,Whole Blood 149 mg/dL (75-99)
[2021-09-21] MEDS ORDERED: DOXYCYCLINE 100 MG CAP PO SCH (12:15)
[2021-09-21] MEDS ORDERED: SODIUM BICARBONATE TAB 650 MG TAB PO SCH (12:30)
--- NOTE | 2021-09-21 12:32 | P.PN ---
Subjective Patient is seen in follow-up for acute kidney injury. Renal function improving. Nonoliguric. Denies chest pain or shortness of breath. Oral intake fair. Wants to go home. Vital signs are stable. General: The patient appeared well nourished and normally developed. HEENT: Head exam is unremarkable. LUNGS: Breath sounds decreased. HEART: Rate and Rhythm are regular. ABDOMEN: Soft, no distention. EXTREMITITES: No edema. Objective - Vital Signs Vital signs: Vital Signs Temp 98.4 F 09/21/21 08:00 Pulse 82 09/21/21 08:00 Resp 18 09/21/21 08:00 BP 130/74 09/21/21 08:00 Pulse Ox 98 09/21/21 08:00 Intake & Output 09/20/21 09/21/21 09/21/21 18:59 06:59 18:59 Output Total 2900 1600 Balance -2900 -1600 Output: Urine 2900 1600 Other: Voiding Method Indwelling Catheter Indwelling Catheter Indwelling Catheter # Bowel Movements 2 - Labs CBC & Chem 7: 09/19/21 07:38 09/21/21 04:40 Labs: Abnormal Lab Results - Last 24 Hours (Table) 09/20/21 09/20/21 09/21/21 Range/Units 16:30 20:26 04:40 Chloride 113 H (96-109) mmol/L Anion Gap 8.40 L (10.00-18.00) mmol/L BUN 38.2 H (9.0-27.0) mg/dL Est GFR (CKD-EPI)AfAm 58.3 L (60.0-200.0) Est GFR (CKD-EPI)NonAf 50.3 L (60.0-200.0) BUN/Creatinine Ratio 25.64 H (12.00-20.00) Ratio POC Glucose (mg/dL) 212 H 134 H (75-99) mg/dL Calcium 8.0 L (8.7-10.3) mg/dL 09/21/21 09/21/21 Range/Units 07:08 11:44 Chloride (96-109) mmol/L Anion Gap (10.00-18.00) mmol/L BUN (9.0-27.0) mg/dL Est GFR (CKD-EPI)AfAm (60.0-200.0) Est GFR (CKD-EPI)NonAf (60.0-200.0) BUN/Creatinine Ratio (12.00-20.00) Ratio POC Glucose (mg/dL) 143 H 149 H (75-99) mg/dL Calcium (8.7-10.3) mg/dL Assessment and Plan Plan: Assessment: 1. Acute kidney injury secondary to ATN secondary to hypotension, NSAIDs as well as use of SEAN inhibitor. Creatinine was 6.45 on admission and down to 1.5 today. Baseline creatinine near 1. UA benign. No hydronephrosis noted on CAT scan. 2. Metabolic acidosis secondary to acute kidney injury. Improved. Status post bicarb drip. 3. Hyperkalemia secondary to acute kidney injury, metabolic acidosis nonsteroidals as well as SEAN inhibitor. Improved. 4. Hypovolemic hyponatremia improved with IV hydration. 5. Hypomagnesemia from poor intake. Plan: Hep-Lock IV fluids. Encouraged oral intake. Replace magnesium. Add oral sodium bicarbonate. Continue to monitor renal function and urine output. Avoid nephrotoxins.
[2021-09-21] MEDS: MAGNESIUM SULFATE-D5W PMX 1 GM in DEXTROSE/WATER 1 100ML.BAG IVPB SCH ×2 (12:40→14:29)
--- NOTE | 2021-09-21 13:04 | P.DS ---
Providers Date of admission: 09/19/21 02:04 Expected date of discharge: 09/21/21 Attending physician: Corrie Moore Consults: 09/18/21 21:21 Consult Physician Stat Consulting Provider: Becki Lee Consult Reason/Comments: Acute kidney failure; hyperkalemia Do you want consulting provider notified?: Already Contacted 09/19/21 00:19 Consult Physician Stat Consulting Provider: Katelyn Zee Consult Reason/Comments: Critical Care Management Do you want consulting provider notified?: Already Contacted 09/19/21 00:24 Consult Physician Routine Consulting Provider: Bhanu Acosta Consult Reason/Comments: Urinary retention Do you want consulting provider notified?: Yes Consult Physician Routine Consulting Provider: Esa Lewis Consult Reason/Comments: Left Elbow Fracture Do you want consulting provider notified?: Yes 09/21/21 11:38 Consult Physician Routine Consulting Provider: Bhavik Wiley Consult Reason/Comments: seizure, multiple falls, ?adjust meds Do you want consulting provider notified?: Yes Primary care physician: Marck Bartholomew [facility] Course: HISTORY OF PRESENT ILLNESS this is a 61-year-old pleasant gentleman, patient of Dr. Bartholomew. Known history of diabetes mellitus type 2, COPD seizures, obstructive sleep apnea, and cancer. Admitted to the emergency room, secondary to weakness and falls at home. Patient cannot relate as to why he fell, complaining of left arm pain,was found to have a left nondisplaced radial head fracture, at the level of the elbow. This has been splinted, also was found to havesevere elevation of BUN/creatinine, with BUN of 102, creatinine of3.97, baseline was approximately 1.7 in 08/24/2021, prior to that it was 1.1 in 07/14/2020.patient denies any fever or chills, nausea vomiting no diarrhea, patient has a rash in the right lower abdomen, without any drainage, patient denies any lightheadedness or dizziness whenever he stands up, patient has a resting tremor, without diagnoses of Parkinson's. in the emergency room, CT of the brain and cervical spine was done, that shows cerebral white matter change within the left posterior frontal lobe, dating back from 2011. There is no educational interpreter, hemorrhage, or mass effect, cerebellum is unremarkable, no midline shift, there is atherosclerotic calcification of the cranial vessels, mastoids are opacified on the right side, no depressed skull fracture. Cervical spine CT, shows remote fracture of the left clavicle, with nonunion.no evidence of cervical spine fracture . Labs shows a BUN of 104, creatinine of 4.28,hemoglobin 8.1 and double basic count of 5.0, sodium 132, glucose of 735, calcium at 6.1consults were made with urology, Dr. John for bladder outlet obstruction, has urinary retention, with the bladder markedly distended above the umbilicus,no hydronephrosis, suspicion for bladder outlet obstruction, she also he also has a left posterior bladder diverticulum, which has been present since 2017. Ogden catheter was placed and was clamped after 1 Lfor his slow voiding, as the patient became hypotensive 09/20: Is seen today on the [facility] floor. Repeat blood work reveals BUN 70 and creatinine 2.46, potassium 5.3. Blood sugars running between 8628. Valproic acid 17. Hemoglobin A1c 5.9. Patient will be resumed on his home medications. Patient has been seen by nephrology and continued on bicarb drip. Patient is also followed by pulmonary. Patient did not require intensive care management. Patient also also been seen by orthopedics for radial fracture right side with recommendations for splint/sling, encourage finger range of motion is much as possible, elevate and ice and follow-up in the office in one week. Urology is recommending maintenance of Ogden catheter throughout hospitalization and may require intermittent self-catheterization, follow-up in the office for Ogden catheter removal. Carotid ultrasound revealed plaque with less than 50% stenosis of bilateral ICAs. Echocardiogram and EEG are pending. 09/21: Patient was seen yesterday by wound care for acanthosis nigricans in the bilateral axilla with ulcerative a, cellulitis of the right axilla extending into the upper arm, candidiasis of the skin and nails. Triad is recommended for ulcerated areas and patient to be seen in the wound center on September 22 at 8:15. We will also start the patient on doxycycline. Nephrology has added and sodium bicarbonate. Echocardiogram reveals EF of 55-60%, moderate concentric left ventricular hypertrophy, mild aortic regurgitation, mild aortic stenosis, mild tricusip regurg. EEG reveals background slowing suggestive of mild encephalopathy. There is no focal slowing, epileptiform discharge procedure seen on the EEG. Clinical correlation is recommended. If there continues to be suspicion for seizure then recommend prolonged EEG as outpatient. Patient will be scheduled for 2-1/2 hour EEG, certified surgical technician is aware. Patient will be discharged to [facility] today in stable condition. DISCHARGE DIAGNOSES 1. Fall, with unknown events leading to the fall 2. Diabetes mellitus type 2, with hyperglycemia 3. Left radial head fracture, currently splinted,long with an left arm sling orthopedics has been consulted Dr. Lewis, follow up in the office in one week 4. History of seizure disorder 5. Prior history of syncope in the past, was thought to be related to hypoglycemia 6. History of seasonal affective disorder 7. bladder outlet obstruction, with urinary retention, Dr. Acosta has been consulted, he recommends that patient might do well with intermittent self- catheterization, follow-up in the office for Ogden removal and teaching on intermittent cath, 8.acute kidney failure, secondary to postobstructive uropathy, no hydronephrosis anemia of chronic disease hyperkalemia secondary to acute kidney injury COVID-19 testing negative. Patient has been hospitalized during a pandemic. DISCHARGE PLAN Subacute rehab at [facility] Impression and plan of care have been directed as dictated by the signing physician. Elsie Harris nurse practitioner acting as scribe for signing physician. Patient Condition at Discharge: Critical Plan - Discharge Summary New Discharge Prescriptions: New Sodium Bicarbonate Tab 650 mg PO BID tab Doxycycline [Vibramycin] 100 mg PO BID #20 cap Continue Famotidine [Pepcid] 20 mg PO DAILY lisinopriL [Zestril] 10 mg PO DAILY FLUoxetine HCL [PROzac] 40 mg PO DAILY Tamsulosin [Flomax] 0.4 mg PO BID Dicyclomine [Bentyl] 10 mg PO TID Finasteride [Proscar] 5 mg PO DAILY Ziprasidone [Geodon] 40 mg PO BID Ergocalciferol [Vitamin D2 (1250 Mcg = 15469 Iu)] 1,250 mcg PO FR Acetaminophen Tab [Tylenol] 1,000 mg PO Q6H PRN PRN Reason: Pain Divalproex Sodium [Depakote] 1,500 mg PO BID Mirabegron [Myrbetriq] 25 mg PO HS Nystatin/Triamcin [Nystatin-Triamcinolone] 1 applic TOPICAL BID PRN PRN Reason: Skin Irritation Discontinued metFORMIN HCL [Glucophage] 1,000 mg PO BID Furosemide [Lasix] 40 mg PO DAILY Ibuprofen [Motrin] 800 mg PO HS Discharge Medication List FLUoxetine HCL [PROzac] 40 mg PO DAILY 04/28/17 [History] Famotidine [Pepcid] 20 mg PO DAILY 04/28/17 [History] lisinopriL [Zestril] 10 mg PO DAILY 04/28/17 [History] Dicyclomine [Bentyl] 10 mg PO TID 04/24/18 [History] Tamsulosin [Flomax] 0.4 mg PO BID 04/24/18 [History] Finasteride [Proscar] 5 mg PO DAILY 04/24/19 [History] Ziprasidone [Geodon] 40 mg PO BID 09/25/20 [History] Mirabegron [Myrbetriq] 25 mg PO HS 01/27/21 [History] Ergocalciferol [Vitamin D2 (1250 Mcg = 17951 Iu)] 1,250 mcg PO FR 03/03/21 [History] Acetaminophen Tab [Tylenol] 1,000 mg PO Q6H PRN 09/19/21 [History] Divalproex Sodium [Depakote] 1,500 mg PO BID 09/19/21 [History] Nystatin/Triamcin [Nystatin-Triamcinolone] 1 applic TOPICAL BID PRN 09/19/21 [History] Doxycycline [Vibramycin] 100 mg PO BID #20 cap 09/21/21 [Rx] Sodium Bicarbonate Tab 650 mg PO BID tab 09/21/21 [Rx] Follow up Appointment(s)/Referral(s): Bhanu Acosta MD [STAFF PHYSICIAN] - 1 Week Marck Bartholomew DO [Primary Care Provider] - 1 Week (AFTER DISCHARGE FROM REHAB) Esa Lewis MD [STAFF PHYSICIAN] - 1 Week Activity/Diet/Wound Care/Special Instructions: OUTPATIENT 2.5 HOUR EEG Arm sling for comfort to the left arm. Keep splint in place if elbow is painful. Start gentle motion of the elbow in 5-7 days as tolerated. Ice and elevate elbow. Follow up at [facility] in 1 week after discharge. Discharge Disposition: TRANSFER TO SNF/ECF
[2021-09-21 14:30] VITALS: BP 134/83; PULSE 85; TEMP 97.7
--- NOTE | 2021-09-22 12:57 | CDI ---
Documentation Clarification Form Date: 09/21/2021 12:46:00 PM From: Louisa Toro RN CCDS Admit Date: 09/19/2021 02:04:00 AM Patient Name: Fletcher Love Visit Number: [id number] Discharge Date: 09/21/2021 02:30:00 PM ATTENTION: The Clinical Documentation Specialists (CDI) and [facility] Coding Staff appreciate your assistance in clarifying documentation. Please respond to the clarification below the line at the bottom and electronically sign. The CDI & [facility] Coding staff will review the response and follow-up if needed. Please note: Queries are made part of the Legal Health Record. If you have any questions, please contact the author of this message via ITS. Dr. Fernie Barrett A Coccyx ulcer is documented by Wound Care 09/21, consult. Based on this information and the findings below, is there an additional diagnosis that is clinically appropriate for this patient? History/Risk Factors: 61-year-old male presents to the ED with weakness and falls at home. Medical history: DM2, CVA and Resting Tremors. Clinical Indicators: Integumentary Assessment 09/19 09/21 Nursing Location: Coccyx Wound description: Skin condition: Maceration; Temperature: Warm; Moisture: Moist; Skin Color: Erythema. 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 Please further describe the coccyx ulcer that is appropriate for this patient. [ X ] Coccyx Ulcer (please describe) [ ] Other condition, please specify [ ] Unable to determine This is a stage III ulcer with fatty layer exposed. Full-thickness skin tissue loss. Clinical Definitions: Stage 1 Pressure Ulcer: intact skin, non-blanching redness of local area Stage 2 Pressure Ulcer: Partial thickness, loss of dermis, pink wound bed Stage 3 Pressure Ulcer: Full thickness tissue loss Stage 4 Pressure Ulcer: Full thickness tissue loss with exposed bone, tendon, or muscle. Unstageable pressure ulcer: Full thickness tissue loss in which the base of the ulcer is covered by slough (yellow, mascorro, mcfarlane, green or brown) and/or eschar (mascorro, brown or black) in the wound bed. (Template Last Revised: November 2020) WENDI
== END 2021-09-21 14:30 | DRG 682 ==
LOC: EEVIPCON 18:17 → EC 18:17 → 2SICU 09-19 02:04 → 5NMEDONC 09-19 12:44 → 4SSUR 09-19 13:33
PROVIDERS: ADMIT Family Medicine; ATTEND Family Medicine
PROC: 2W39X1Z Immobilization of Left Upper Extremity using Splint (ICD-10-PCS; principal; 2021-09-18)
DX: N17.0 Acute kidney failure with tubular necrosis (principal); L89.153 Pressure ulcer of sacral region, stage 3; N13.8 Other obstructive and reflux uropathy; L03.111 Cellulitis of right axilla; E87.1 Hypo-osmolality and hyponatremia; E87.2 Acidosis; L03.311 Cellulitis of abdominal wall; D63.8 Anemia in other chronic diseases classified elsewhere; F25.9 Schizoaffective disorder, unspecified; I11.0 Hypertensive heart disease with heart failure; I95.9 Hypotension, unspecified; E11.622 Type 2 diabetes mellitus with other skin ulcer; I50.9 Heart failure, unspecified; L98.492 Non-pressure chronic ulcer of skin of other sites with fat layer exposed; E11.65 Type 2 diabetes mellitus with hyperglycemia; B37.2 Candidiasis of skin and nail; E87.5 Hyperkalemia; G40.909 Epilepsy, unspecified, not intractable, without status epilepticus; F31.9 Bipolar disorder, unspecified; J44.9 Chronic obstructive pulmonary disease, unspecified; Z20.822 Contact with and (suspected) exposure to COVID-19; S52.125A Nondisplaced fracture of head of left radius, initial encounter for closed fracture; S50.312A Abrasion of left elbow, initial encounter; N32.3 Diverticulum of bladder; L83 Acanthosis nigricans; E83.42 Hypomagnesemia; E86.1 Hypovolemia; I65.23 Occlusion and stenosis of bilateral carotid arteries; N40.1 Benign prostatic hyperplasia with lower urinary tract symptoms; F41.9 Anxiety disorder, unspecified; E78.5 Hyperlipidemia, unspecified; G47.33 Obstructive sleep apnea (adult) (pediatric); K21.9 Gastro-esophageal reflux disease without esophagitis; I44.0 Atrioventricular block, first degree; M19.90 Unspecified osteoarthritis, unspecified site; G43.909 Migraine, unspecified, not intractable, without status migrainosus; R25.1 Tremor, unspecified; F89 Unspecified disorder of psychological development; R15.9 Full incontinence of feces; M10.9 Gout, unspecified; R29.6 Repeated falls; F17.200 Nicotine dependence, unspecified, uncomplicated; T39.315A Adverse effect of propionic acid derivatives, initial encounter; T46.4X5A Adverse effect of angiotensin-converting-enzyme inhibitors, initial encounter; Z79.84 Long term (current) use of oral hypoglycemic drugs; Z79.899 Other long term (current) drug therapy; Z91.81 History of falling; Z86.73 Personal history of transient ischemic attack (TIA), and cerebral infarction without residual deficits; Z86.14 Personal history of Methicillin resistant Staphylococcus aureus infection; Z90.49 Acquired absence of other specified parts of digestive tract; Z87.19 Personal history of other diseases of the digestive system; Z87.81 Personal history of (healed) traumatic fracture; Z98.42 Cataract extraction status, left eye; Z98.41 Cataract extraction status, right eye; Z98.890 Other specified postprocedural states; W19.XXXA Unspecified fall, initial encounter; Y92.009 Unspecified place in unspecified non-institutional (private) residence as the place of occurrence of the external cause; Z88.5 Allergy status to narcotic agent; Z88.0 Allergy status to penicillin; Z88.2 Allergy status to sulfonamides; Z88.8 Allergy status to other drugs, medicaments and biological substances; Z80.0 Family history of malignant neoplasm of digestive organs; Z82.0 Family history of epilepsy and other diseases of the nervous system; Z80.42 Family history of malignant neoplasm of prostate
CPT/HCPCS: 29105; 36415; 51702; 70450; 71046; 72125; 74176; 80048; 80053; 80164; 80320; 81003; 83036; 83540; 83550; 83605; 83735; 84132; 84484; 85025; 85027; 85610; 85730; 87635; 93005; 93308; 93880; 94640; 95816; 96361; 96374; 96375; 96376; 99291

== ENCOUNTER → 2021-09-30 | Outpatient (CLI) | payer MEDICARE, OTHER | LOC: NEUROMAIN 08:09 | PROVIDERS: ATTEND Student in an Organized Health Care Education/Training Program | DX: R56.9 Unspecified convulsions (principal); Z88.5 Allergy status to narcotic agent; Z88.0 Allergy status to penicillin; Z88.1 Allergy status to other antibiotic agents; Z88.2 Allergy status to sulfonamides | CPT/HCPCS: 95713 ==

== ENCOUNTER 2021-10-08 12:13 | Inpatient (IN) | payer MEDICARE, OTHER ==
[2021-10-08] MEDS ORDERED: SODIUM CHLORIDE 0.9% 1,000 ML IV ONE (12:19)
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
[2021-10-08 12:56] LABS: Glucose,Whole Blood 101 mg/dL (75-99)
[2021-10-08 13:21] LABS: Appearance,Urine Clear (Clear); Bilirubin,Urine Negative (Negative); Blood,Urine Trace (Negative); Color,Urine Light Yellow; Glucose,Urine (UA) Negative (Negative); Ketones,Urine Negative (Negative); Leukocyte Esterase,Urine Negative (Negative); Mucus,Urine Rare /hpf; Nitrite,Urine Negative (Negative); PH, Urine 6.5 (5.0-8.0); Protein,Urine Trace (Negative); RBC,Urine 3 /hpf (0-5); Specific Gravity,Urine 1.008 (1.001-1.035); Squamous Epithelial Cell,Urine 1 /hpf (0-4); Urobilinogen,Urine <2.0 mg/dL (<2.0); WBC,Urine 2 /hpf (0-5)
[2021-10-08 13:25] LABS: INR 0.9 (<1.2); Partial Thromboplastin Time 24.4 sec (22.0-30.0); Prothrombin Time 10.1 sec (9.0-12.0)
[2021-10-08 13:34] LABS: ALT 10 U/L (4-49); AST 20 U/L (17-59); African American GFR (CKD) 71 (>60 ml/min/1.73 sqM); Albumin 3.5 g/dL (3.5-5.0); Alcohol <10 mg/dL; Alkaline Phosphatase 79 U/L (38-126); Anion Gap 9 mmol/L; Blood Urea Nitrogen 18 mg/dL (9-20); Calcium 9.5 mg/dL (8.4-10.2); Carbon Dioxide 24 mmol/L (22-30); Chloride 99 mmol/L (98-107); Glucose 101 mg/dL (74-99); Non-African American GFR(CKD) 61 (>60 ml/min/1.73 sqM); Potassium 4.7 mmol/L (3.5-5.1); Sodium 132 mmol/L (137-145); Total Bilirubin 0.6 mg/dL (0.2-1.3); Total Protein 7.7 g/dL (6.3-8.2)
[2021-10-08 13:35] LABS: Amphetamine Screen,Urine Not Detected (NotDetected); Barbiturate Screen,Urine Not Detected (NotDetected); Benzodiazepines Screen,Urine Not Detected (NotDetected); Cocaine Screen,Urine Not Detected (NotDetected); Methadone Screen, Urine Not Detected (NotDetected); Opiate Screen,Urine Not Detected (NotDetected); Oxycodone Screen, Urine Not Detected (NotDetected); Phencyclidine Screen,Urine Not Detected (NotDetected); Tricyclic Antidepressant,Urine Not Detected (NotDetected); Urn Cannabinoid Scrn Not Detected (NotDetected)
--- NOTE | 2021-10-08 13:37 | XR ---
EXAMINATION TYPE: XR chest 2V DATE OF EXAM: 10/08/2021 COMPARISON: 09/18/2021 HISTORY: Altered mental status TECHNIQUE: Frontal and lateral views of the chest are obtained. FINDINGS: There is a vague partially consolidative opacity in the right upper lobe is not seen previ ously. The left lung is clear. There is no pleural effusion or pneumothorax. Heart size is normal and the pulmonary vasculature is n ot congested. The osseous structures are intact. IMPRESSION: Vague airspace opacity in the right upper lobe. Possible pneumonia and short-term follow -up to resolution is recommended.
[2021-10-08 13:39] LABS: Basophils # (A) 0.1 k/uL (0-0.2); Basophils % (A) 1 %; Eosinophils # (A) 0.1 k/uL (0-0.7); Eosinophils % (A) 1 %; HCT 35.7 % (39.0-53.0); HGB 11.6 gm/dL (13.0-17.5); Lymphocytes # (A) 1.3 k/uL (1.0-4.8); Lymphocytes % (A) 16 %; MCH 31.8 pg (25.0-35.0); MCHC 32.6 g/dL (31.0-37.0); MCV 97.4 fL (80.0-100.0); Mean Platelet Volume 6.9; Monocytes # (A) 0.7 k/uL (0-1.0); Monocytes % (A) 9 %; Neutrophils # (A) 5.9 k/uL (1.3-7.7); Neutrophils % (A) 71 %; RBC 3.66 m/uL (4.30-5.90); RDW 14.3 % (11.5-15.5); WBC 8.3 k/uL (3.8-10.6)
[2021-10-08 14:04] LABS: Platelet Count 272 k/uL (150-450)
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
[2021-10-08] MEDS ORDERED: PNEUMONIA PROTOCOL UTILIZED 1 EACH MISC PO PRN (15:27)
[2021-10-08] MEDS ORDERED: AZITHROMYCIN 500 MG in SODIUM CHLORIDE 0.9% 250 ML IVPB STA (15:27)
[2021-10-08] MEDS: SODIUM CHLORIDE 0.9% 1,000 ML IV SCH (16:35)
--- NOTE | 2021-10-08 16:39 | CT ---
EXAMINATION TYPE: CT brain wo con DATE OF EXAM: 10/08/2021 COMPARISON: CT brain 09/18/2021 HISTORY: ams CT DLP: 1004 mGycm Automated exposure control for dose reduction was used. Helical imaging through the brain. FINDINGS: There is no hemorrhage or hydrocephalus. Cortical atrophy is present. Periventricular white matter sh ows patchy low attenuation. The calvarium is intact. Paranasal sinuses and mastoid air cells as visua lized are stable, opacified right mastoid air cells again noted. Utilized portions of the orbits show symmetric appearance. There are cerebral vascular calcifications. IMPRESSION: NO ACUTE ABNORMALITY EVIDENT. Age-related changes of atrophy and chronic small vessel ischemia.
[2021-10-09] MEDS: SODIUM CHLORIDE 0.9% 1,000 ML IV SCH ×3 (02:03→21:31)
--- NOTE | 2021-10-09 08:12 | XR ---
EXAMINATION TYPE: XR chest 2V DATE OF EXAM: 10/09/2021 COMPARISON: Chest x-ray from yesterday HISTORY: Cough. TECHNIQUE: Frontal and lateral views of the chest are obtained. FINDINGS: There is improved aeration in the right upper to midlung. The left lung remains clear. Th e cardiac silhouette size is less prominent. Anterior bridging osteophytes in the thoracic spine are noted. IMPRESSION: Resolved right upper lung acute infiltrate. No new infiltrates seen.
[2021-10-09 14:07] LABS: Basophils # (A) 0.1 k/uL (0-0.2); Basophils % (A) 2 %; Eosinophils # (A) 0.2 k/uL (0-0.7); Eosinophils % (A) 3 %; HCT 32.2 % (39.0-53.0); HGB 10.3 gm/dL (13.0-17.5); Lymphocytes # (A) 1.7 k/uL (1.0-4.8); Lymphocytes % (A) 34 %; MCH 31.8 pg (25.0-35.0); MCV 99.1 fL (80.0-100.0); Mean Platelet Volume 6.8; Monocytes # (A) 0.5 k/uL (0-1.0); Monocytes % (A) 10 %; Neutrophils # (A) 2.5 k/uL (1.3-7.7); Neutrophils % (A) 49 %; Platelet Count 243 k/uL (150-450); RBC 3.24 m/uL (4.30-5.90); RDW 14.5 % (11.5-15.5); WBC 5.1 k/uL (3.8-10.6)
[2021-10-09 14:22] LABS: ALT 8 U/L (4-49); AST 17 U/L (17-59); African American GFR (CKD) 80 (>60 ml/min/1.73 sqM); Albumin 2.7 g/dL (3.5-5.0); Albumin/Globulin Ratio 0.8; Alkaline Phosphatase 54 U/L (38-126); Anion Gap 5 mmol/L; Blood Urea Nitrogen 19 mg/dL (9-20); Calcium 8.5 mg/dL (8.4-10.2); Carbon Dioxide 23 mmol/L (22-30); Chloride 105 mmol/L (98-107); Globulin 3.5 g/dL; Glucose 116 mg/dL (74-99); Non-African American GFR(CKD) 69 (>60 ml/min/1.73 sqM); Potassium 4.5 mmol/L (3.5-5.1); Sodium 133 mmol/L (137-145); Total Bilirubin 0.3 mg/dL (0.2-1.3); Total Protein 6.2 g/dL (6.3-8.2)
[2021-10-09] MEDS ORDERED: AZITHROMYCIN 500 MG TAB PO SCH (16:00)
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
[2021-10-09 16:16] LABS: C Reactive Protein 4.4 mg/dL (<1.0)
[2021-10-09] MEDS: DICYCLOMINE 10 MG CAP PO SCH ×2 (17:03→21:31)
[2021-10-09] MEDS: FINASTERIDE 5 MG TAB PO SCH (17:07)
[2021-10-09] MEDS: FLUoxetine HCL 20 MG CAP PO SCH (17:07)
[2021-10-09] MEDS: lisinopriL 10 MG TAB PO SCH (17:07)
[2021-10-09] MEDS: COLLAGENASE 250 UNIT/GM OINTMENT 30 GM TUBE TOPICAL SCH (18:04)
[2021-10-09] MEDS: ACETAMINOPHEN TAB 500 MG TAB PO PRN (18:04)
[2021-10-09] MEDS: DIVALPROEX 500 MG TABLET.DR PO SCH (21:30)
[2021-10-09] MEDS: SODIUM BICARBONATE TAB 650 MG TAB PO SCH (21:31)
[2021-10-09] MEDS: TAMSULOSIN 0.4 MG CAP.ER.24H PO SCH (21:31)
[2021-10-09] MEDS: ZIPRASIDONE 40 MG CAP PO SCH (21:31)
[2021-10-09] MEDS: Mirabegron [Myrbetriq] PO SCH (21:31)
[2021-10-10] MEDS ORDERED: VANCOMYCIN IV PER PHARMACY 1 EACH MISC MISCELLANE PRN (00:09)
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
[2021-10-10] MEDS: VANCOMYCIN 2,000 MG in SODIUM CHLORIDE 0.9% 500 ML 500 ML IVPB SCH ×2 (01:38→14:54)
[2021-10-10] MEDS: DIVALPROEX 500 MG TABLET.DR PO SCH ×2 (09:00→20:47)
[2021-10-10] MEDS: FLUoxetine HCL 20 MG CAP PO SCH (09:00)
[2021-10-10] MEDS: lisinopriL 10 MG TAB PO SCH (09:01)
[2021-10-10] MEDS: FAMOTIDINE 20 MG TAB PO SCH (09:01)
[2021-10-10] MEDS: DICYCLOMINE 10 MG CAP PO SCH ×3 (09:01→20:48)
[2021-10-10] MEDS: TAMSULOSIN 0.4 MG CAP.ER.24H PO SCH ×2 (09:01→20:48)
[2021-10-10] MEDS: FINASTERIDE 5 MG TAB PO SCH (09:01)
[2021-10-10] MEDS: SODIUM BICARBONATE TAB 650 MG TAB PO SCH ×2 (09:01→20:48)
[2021-10-10] MEDS: ZIPRASIDONE 40 MG CAP PO SCH ×2 (09:01→20:48)
[2021-10-10] MEDS: COLLAGENASE 250 UNIT/GM OINTMENT 30 GM TUBE TOPICAL SCH (09:03)
[2021-10-10] MEDS: SODIUM CHLORIDE 0.9% 1,000 ML IV SCH ×3 (09:03→22:50)
--- NOTE | 2021-10-10 14:53 | P.PN ---
Subjective Progress Note Date: 10/10/21 HISTORY OF PRESENT ILLNESS this is a 61-year-old pleasant gentleman, patient of Dr. Bartholomew. Known his tory of diabetes mellitus type 2, COPD seizures, obstructive sleep apnea, and cancer was admitted to the hospital from 09/19-09/21 for increased weakness and a fall. Patient was seen by neurologist during his visit EEG was obtained that showed mild encephalopathy but no evidence of seizure was noted. Patient was just discharged from [facility] 2 days ago and has been living with his ex . Patient's sister is her guardian. Patient was brought in by EMS and was found to be full of urine and stool and slightly altered. Patient does not recall the events. He denies any confusion or change in mental status. Patient's alert and answering questions appropriately. He does distract from the conversation easily. Vitals were reviewed patient temp is 99.7 pulse 76 respiratory rate 18 blood pressure 137/75 oxygenating at 95% on room air. Labs were reviewed patient's WBC is 5.1 hemoglobin 10.3 platelet 243 sodium 133, creatinine 1.27 yesterday today is 1.15. Urinalysis is negative for infection and UDS and negative. Alcohol level was negative. Valproic acid level was 79.[address] brain negative for any acute changes no acute abnormality age-related changes of hypertrophy and chronic small vessel ischemia noted EKG normal sinus rhythm X-ray of right ankle suggestive of chronic fracture involving the distal fibula the soft tissue swelling present Chest x-ray suggestive of vague airspace opacities in the right upper lobe repeat chest x-ray shows resolution of the right upper lobe infiltrate. 2/6 patient examined bedside. Denies any complaints of confusion, shortness of breath or chest pain. Patient has some shoulder pain from the chronic wound but denies any other significant medical problem. We also reviewed patient is afebrile pulse 75 respiratory rate 18 blood pressure 122/78 oxygenating at 97 on room air. Labs revealed WBC 5.1 hemoglobin 10.3 sodium 133, glucose 116 and 0.14. Infectious diseases examined the patient and recommend adding vancomycin in addition to Rocephin. Wound cultures being drawn. CT of the shoulder will be obtained as there seems to be another collection in the armpit concerning for track between the collections. REVIEW OF SYSTEMS Constitutional: No fever, no chills, no night sweats. No weight change. Reports weakness, fatigue or lethargy. No daytime sleepiness. EENT: No headache. No blurred vision or double vision, no loss of vision. No loss of Hearing, no ringing in the ears, no dizziness. No nasal drainage or congestion. No epistaxis. No sore throat. Lungs: No shortness of breath, cough, no sputum production. No wheezing. Cardiovascular: No chest pain, no lower extremity edema. No palpitations. No paroxysmal nocturnal dyspnea. No orthopnea. No lightheadedness or dizziness. No syncopal episodes. Abdominal: No abdominal pain. No nausea, vomiting. No diarrhea. No constipation. No bloody or tarry stools. No loss of appetite. Genitourinary: No dysuria, increased frequency, urgency. No urinary retention. Musculoskeletal: No myalgias. No muscle weakness, no gait dysfunction, no frequ ent falls. No back pain. No neck pain. Reports right arm pain reports right ankle pain Integumentary: No wounds, no lesions. No rash or pruritus. No unusual bruising. No change in hair or nails. Neurologic: No aphasia. No facial droop. No change in mentation. No head injury. No headache. No paralysis. No paresthesia. Psychiatric: No depression. No anxiety. No mood swings. Endocrine: No abnormal blood sugars. No weight change. No excessive sweating or thirst. No cold intolerance. PHYSICAL EXAMINATION Gen: This is a 61 years old healthy adult HEENT: Head is atraumatic, normocephalic. Pupils equal, round. Sclerae is anicteric. NECK: Supple. No JVD. No lymphadenopathy. No thyromegaly. LUNGS: Clear to auscultation. No wheezes or rhonchi. No intercostal retractions. HEART: Regular rate and rhythm. No murmur. ABDOMEN: Soft. Bowel sounds are present. No masses. No tenderness.chronic changes of the skin right groin wsuggestiv eof hidradenitis with purulent draiange EXTREMITIES: No pedal edema. No calf tenderness. Mild swelling in the right ankle, chronic shoulder ulcer with purulent draiange , with arm put with acanthosis nigrans and possible collection in the armpit NEUROLOGICAL: Patient is awake, alert and oriented x3. Cranial nerves 2 through 12 are grossly intact. Mild swelling with swelling noted in the right ankle Skin; 5 cm ulcer on the right shoulder with minimal drainage ASSESSMENT AND PLAN 1. Acute on chronic metabolic encephalopathy likely dehydration with possible pneumonia on chest x-ray. procalcitonin ordered. Continue hydration. IV fluids at 100 mL per hour. Urine drug screen was negative. EEG done previously in the last admission was negative for seizure. Plan to follow with outpatient neurologist for a prolonged EEG continue Depakote 1500 twice a day. Valproic acid levels are normal 2. Nonhealing wound on the right shoulder with significant slough with possible collection in the arm pit CT shoulder ordered to evaluate for collection of fluid or abscess. On Rocephin and vancomycin 3. Abdominal wound with possible hydradenitis and cellulitis. Wound cultures sent continue vancomycin and Rocephin be consulted 4. Diabetes mellitus type 2, with hyperglycemia A1c is 5.9. history of hypoglycemia in the past,discontinued Glucophage, secondary to severe kidney failure,Accu-Cheks, blood sugars are 92-103 currently 5. Left radial head fracture, healed, not wearing slin adviced in the revious admission 6. History of seizure disorder on Depakote, 1500 mg twice a day, levels are normal. CK levels ordered 7. Prior history of syncope in the past, orthostatic vitals 8. History of seasonal affective disorderon Geodon, 40 twice a day, Prozac 40 mg daily, and Depakote 1500 mg twice a day 9.bladder outlet obstruction, with urinary retention, Dr. Acosta has been consulted in last admission , he recommends that patient might do well with intermittent Vidal catheter, will try to remove catheter and do bladder scan every 6 hour, if > 300, vidal cathter can be reinserted with plan to follow-up in the office for teaching on intermittent cath, 10.acute kidney failure, sec to NSAIDS, ACEI , is improving 11. anemia of chronic disease 12. DVT prophylaxis 13. GI prophylaxis COVID-19 testing negative. Patient has been hospitalized during a pandemic. DISCHARGE PLAN patient may benefit from subacute rehab PTOT consult Objective - Vital Signs Vital signs: Vital Signs Temp 97.9 F 10/10/21 11:56 Pulse 75 10/10/21 11:56 Resp 18 10/10/21 11:56 BP 152/77 10/10/21 11:56 Pulse Ox 96 10/10/21 11:56 Intake & Output 10/09/21 10/10/21 10/10/21 18:59 06:59 18:59 Intake Total 0 1800 Output Total 600 1300 900 Balance 1450 500 -900 Intake: Intake, IV Titration 2049 1400 Amount Sodium Chloride 0.9% 1, 2000 000 ml @ 100 mls/hr IV . Q10H [facility] Rx#:[id number] Vancomycin 2,000 mg In 500 Sodium Chloride 0.9% 500 ml 500 ml @ 167 mls/hr IVPB Q12H [facility] Rx#: [id number] cefTRIAXone 2 gm In 50 900 Sodium Chloride 0.9% 50 ml @ 100 mls/hr IVPB Q24H [facility] Rx#:[id number] Oral 400 Output: Urine 600 1300 900 Uretheral (Vidal) 600 Post Void Residual 0 Other: Voiding Method Indwelling Catheter Indwelling Catheter Indwelling Catheter # Bowel Movements 3 - Labs CBC & Chem 7: 10/09/21 13:48 10/09/21 13:48 Labs: Abnormal Lab Results - Last 24 Hours (Table) 10/09/21 10/09/21 Range/Units 13:48 13:48 Creatine Kinase 51 L (55-170) U/L C-Reactive Protein 4.4 H (<1.0) mg/dL Procalcitonin 0.14 H (0.02-0.09) ng/mL Microbiology - Last 24 Hours (Table) 10/09/21 17:40 Gram Stain - Preliminary Abdomen Wound Culture - Preliminary 10/08/21 12:55 Blood Culture - Preliminary Blood No Growth after 24 hours 10/08/21 12:55 Blood Culture - Preliminary Blood No Growth after 24 hours
[2021-10-10 15:31] LABS: Basophils % (A) 1 %; Eosinophils # (A) 0.2 k/uL (0-0.7); Eosinophils % (A) 4 %; HCT 29.7 % (39.0-53.0); HGB 9.5 gm/dL (13.0-17.5); Lymphocytes % (A) 39 %; MCH 32.6 pg (25.0-35.0); MCHC 31.9 g/dL (31.0-37.0); Macrocytosis Slight; Mean Platelet Volume 6.8; Monocytes # (A) 0.4 k/uL (0-1.0); Monocytes % (A) 8 %; Neutrophils # (A) 2.2 k/uL (1.3-7.7); Neutrophils % (A) 45 %; Platelet Count 250 k/uL (150-450); RBC 2.91 m/uL (4.30-5.90); RDW 14.8 % (11.5-15.5)
[2021-10-10 15:48] LABS: ALT 7 U/L (4-49); AST 14 U/L (17-59); African American GFR (CKD) >90 (>60 ml/min/1.73 sqM); Albumin 2.3 g/dL (3.5-5.0); Albumin/Globulin Ratio 0.8; Alkaline Phosphatase 49 U/L (38-126); Anion Gap 5 mmol/L; Blood Urea Nitrogen 15 mg/dL (9-20); Calcium 7.9 mg/dL (8.4-10.2); Carbon Dioxide 23 mmol/L (22-30); Chloride 107 mmol/L (98-107); Glucose 132 mg/dL (74-99); Non-African American GFR(CKD) 82 (>60 ml/min/1.73 sqM); Potassium 4.7 mmol/L (3.5-5.1); Sodium 135 mmol/L (137-145); Total Bilirubin 0.3 mg/dL (0.2-1.3); Total Protein 5.3 g/dL (6.3-8.2)
--- NOTE | 2021-10-10 16:28 | CT ---
EXAMINATION TYPE: CT shoulder RT w con DATE OF EXAM: 10/10/2021 COMPARISON: None HISTORY: RT shoulder ulcer with collection under armpit. CT DLP: 1083.30 mGycm Automated exposure control for dose reduction was used. CONTRAST: Performed with IV Contrast, patient injected with 100 mL of Isovue 300. FINDINGS: There is s a 5 cm defect in the skin/subcutaneous fat anterior to proximal right humerus with some st randing of the subcutaneous fat and small amount of subcutaneous gas. There is skin thickening of the axillary fold. Some prominent nonenlarged right axillary lymph nodes are likely reactive. Partially visualized right gynecomastia. Degenerative changes of the right shoulder without any evidence of osseous erosion. Multiple, healed right rib fractures. IMPRESSION: ULCERATION THE SKIN/CUTANEOUS FAT ANTERIOR TO THE RIGHT PROXIMAL HUMERUS WITH SURROUNDING FAT STRANDI NG/SUBCUTANEOUS GAS BUT WITHOUT AN UNDERLYING ORGANIZED FLUID COLLECTION. NO OSSEOUS EROSION.
[2021-10-10] MEDS: Mirabegron [Myrbetriq] PO SCH (20:48)
[2021-10-10] MEDS: ACETAMINOPHEN TAB 500 MG TAB PO PRN (20:48)
--- NOTE | 2021-10-10 23:09 | P.PN ---
Subjective Progress Note Date: 10/10/21 Principal diagnosis: 1-right anterior shoulder wound 2-abdominal wall wound and abscess Patient is a 61-year-old male presenting to the hospital with weakness and some mental status changes patient also have a wound to the right anterior shoulder area as result of fall, and this patient also have a right lower abdominal wall wound and some purulent drainage which was cultured yesterday. On today's evaluation that is 10/10/2021 the patient denies having any fever or chills, the patient is breathing comfortably, patient denies pain to the right anterior shoulder area no chest pain shortness of breath or cough no abdominal pain no diarrhea Objective - Vital Signs Vital signs: Vital Signs Temp 98.6 F 10/10/21 19:35 Pulse 71 10/10/21 19:35 Resp 20 10/10/21 19:35 BP 134/76 10/10/21 19:35 Pulse Ox 98 10/10/21 19:35 Intake & Output 10/10/21 10/10/21 10/11/21 06:59 18:59 06:59 Intake Total 1800 Output Total 1300 1950 Balance 500 -1950 Intake: Intake, IV Titration 1400 Amount Vancomycin 2,000 mg In 500 Sodium Chloride 0.9% 500 ml 500 ml @ 167 mls/hr IVPB Q12H [facility] Rx#: [id number] cefTRIAXone 2 gm In 900 Sodium Chloride 0.9% 50 ml @ 100 mls/hr IVPB Q24H [facility] Rx#:[id number] Oral 400 Output: Urine 1300 1950 Uretheral ([place]) 600 Post Void Residual 0 Other: Voiding Method Indwelling Catheter Indwelling Catheter # Bowel Movements 3 - Exam GENERAL DESCRIPTION: An middle-aged male lying in bed in no distress RESPIRATORY SYSTEM: Unlabored breathing , decreased breath sounds at bases HEART: S1 S2 regular rate and rhythm , ABDOMEN: Soft , no tenderness EXTREMITIES: Right anterior shoulder wound is currently dressed no drainage on the dressing, RN will change the dressing mention significant decrease in the slough tissue - Labs CBC & Chem 7: 10/10/21 15:07 10/10/21 15:07 Labs: Abnormal Lab Results - Last 24 Hours (Table) 10/10/21 10/10/21 Range/Units 15:07 15:07 RBC 2.91 L (4.30-5.90) m/uL Hgb 9.5 L (13.0-17.5) gm/dL Hct 29.7 L (39.0-53.0) % MCV 102.0 H (80.0-100.0) fL Sodium 135 L (137-145) mmol/L Glucose 132 H (74-99) mg/dL Calcium 7.9 L (8.4-10.2) mg/dL AST 14 L (17-59) U/L Total Protein 5.3 L (6.3-8.2) g/dL Albumin 2.3 L (3.5-5.0) g/dL Microbiology - Last 24 Hours (Table) 10/08/21 12:55 Gram Stain - Preliminary Arm - Right Wound Culture - Preliminary Coagulase Negative Staph 10/08/21 12:55 Blood Culture - Preliminary Blood No Growth after 48 hours 10/08/21 12:55 Blood Culture - Preliminary Blood No Growth after 48 hours 10/09/21 17:40 Gram Stain - Preliminary Abdomen Wound Culture - Preliminary Assessment and Plan Assessment: 1-patient with a right anterior shoulder wound traumatic with possible cellulitis local culture showing staph epi CT did not show any abscess 2-anterior abdominal wall wound abscess and cellulitis cultures are currently pending Plan: 1-patient to continue with Rocephin and vancomycin awaiting for the cultures to finalize 2-local wound care with Santyl followed by moist dressing Time with Patient: Less than 30
[2021-10-11] MEDS: VANCOMYCIN 2,000 MG in SODIUM CHLORIDE 0.9% 500 ML 500 ML IVPB SCH ×2 (00:13→13:37)
[2021-10-11 07:48] LABS: African American GFR (CKD) >90 (>60 ml/min/1.73 sqM); Non-African American GFR(CKD) 86 (>60 ml/min/1.73 sqM)
[2021-10-11] MEDS: lisinopriL 10 MG TAB PO SCH (10:02)
[2021-10-11] MEDS: COLLAGENASE 250 UNIT/GM OINTMENT 30 GM TUBE TOPICAL SCH (10:02)
[2021-10-11] MEDS: FINASTERIDE 5 MG TAB PO SCH (10:03)
[2021-10-11] MEDS: DIVALPROEX 500 MG TABLET.DR PO SCH ×2 (10:03→21:09)
[2021-10-11] MEDS: FLUoxetine HCL 20 MG CAP PO SCH (10:03)
[2021-10-11] MEDS: SODIUM BICARBONATE TAB 650 MG TAB PO SCH ×2 (10:03→21:09)
[2021-10-11] MEDS: FAMOTIDINE 20 MG TAB PO SCH (10:03)
[2021-10-11] MEDS: DICYCLOMINE 10 MG CAP PO SCH ×3 (10:03→21:09)
[2021-10-11] MEDS: ZIPRASIDONE 40 MG CAP PO SCH ×2 (10:03→21:08)
[2021-10-11] MEDS: TAMSULOSIN 0.4 MG CAP.ER.24H PO SCH ×2 (10:03→21:09)
--- NOTE | 2021-10-11 14:30 | P.PN ---
Subjective Progress Note Date: 10/11/21 HISTORY OF PRESENT ILLNESS This is a 61-year-old gentleman, patient of Dr. Bartholomew. Known history of diabetes mellitus type 2, COPD seizures, obstructive sleep apnea, and cancer was admitted to the hospital from 09/19-09/21 for increased weakness and a fall. Patient was seen by neurologist during his visit EEG was obtained that showed mild encephalopathy but no evidence of seizure was noted. Patient was just discharged from [facility] 2 days ago and has been living with his ex . Patient's sister is her guardian. Patient was brought in by EMS and was found to be full of urine and stool and slightly altered. Patient does not recall the events. He denies any confusion or change in mental status. Patient's alert and answering questions appropriately. He does distract from the conversation easily. Vitals were reviewed patient temp is 99.7 pulse 76 respiratory rate 18 blood pressure 137/75 oxygenating at 95% on room air. Labs were reviewed patient's WBC is 5.1 hemoglobin 10.3 platelet 243 sodium 133, creatinine 1.27 yesterday today is 1.15. Urinalysis is negative for infection and UDS and negative. Alcohol level was negative. Valproic acid level was 79.[address] brain negative for any acute changes no acute abnormality age-related changes of hypertrophy and chronic small vessel ischemia noted EKG normal sinus rhythm X-ray of right ankle suggestive of chronic fracture involving the distal fibula the soft tissue swelling present Chest x-ray suggestive of vague airspace opacities in the right upper lobe repeat chest x-ray shows resolution of the right upper lobe infiltrate. 10/10 patient examined bedside. Denies any complaints of confusion, shortness of breath or chest pain. Patient has some shoulder pain from the chronic wound but denies any other significant medical problem. We also reviewed patient is afebrile pulse 75 respiratory rate 18 blood pressure 122/78 oxygenating at 97 on room air. Labs revealed WBC 5.1 hemoglobin 10.3 sodium 133, glucose 116 and 0.14. Infectious diseases examined the patient and recommend adding vancomycin in addition to Rocephin. Wound cultures being drawn. CT of the shoulder will b e obtained as there seems to be another collection in the armpit concerning for track between the collections. 10/11: CAT scan of shoulder revealed ulceration cutaneous fat anterior to the right proximal humerus with surrounding fat stranding subcutaneous gas but without underlying fluid collection. No osseous erosion. Patient is followed by Dr. Johnston with recommendations to continue Rocephin and vancomycin, local wound care with Santyl. Consult added for orthopedics to evaluate right shoulder joint and possible debridement, wound care center consult also added. Bone culture is showing Staphylococcus epidermidis. Blood culture no growth at 48 hours. Patient was evaluated by speech therapy and patient had no signs of aspiration and can continue regular diet with thin liquids. REVIEW OF SYSTEMS Constitutional: No fever, no chills, no night sweats. No weight change. Reports weakness, fatigue or lethargy. No daytime sleepiness. EENT: No headache. No blurred vision or double vision, no loss of vision. No loss of Hearing, no ringing in the ears, no dizziness. No nasal drainage or congestion. No epistaxis. No sore throat. Lungs: No shortness of breath, cough, no sputum production. No wheezing. Cardiovascular: No chest pain, no lower extremity edema. No palpitations. No paroxysmal nocturnal dyspnea. No orthopnea. No lightheadedness or dizziness. No syncopal episodes. Abdominal: No abdominal pain. No nausea, vomiting. No diarrhea. No co nstipation. No bloody or tarry stools. No loss of appetite. Genitourinary: No dysuria, increased frequency, urgency. No urinary retention. Musculoskeletal: No myalgias. No muscle weakness, no gait dysfunction, no frequent falls. No back pain. No neck pain. Reports right arm pain reports right ankle pain Integumentary: Noted right shoulder right abdomen wounds, no lesions. No rash or pruritus. No unusual bruising. No change in hair or nails. Neurologic: No aphasia. No facial droop. No change in mentation. No head injury. No headache. No paralysis. No paresthesia. Psychiatric: No depression. No anxiety. No mood swings. Endocrine: No abnormal blood sugars. No weight change. No excessive sweating or thirst. No cold intolerance. PHYSICAL EXAMINATION Gen: This is a 61 years old healthy adult HEENT: Head is atraumatic, normocephalic. Pupils equal, round. Sclerae is anicteric. NECK: Supple. No JVD. No lymphadenopathy. No thyromegaly. LUNGS: Clear to auscultation. No wheezes or rhonchi. No intercostal retractions. HEART: Regular rate and rhythm. No murmur. ABDOMEN: Soft. Bowel sounds are present. No masses. No tenderness.chronic changes of the skin right groin wsuggestiv eof hidradenitis with purulent draiange EXTREMITIES: No pedal edema. No calf tenderness. Mild swelling in the right ankle, chronic shoulder ulcer with purulent draiange , with arm put with acanthosis nigrans and possible collection in the armpit NEUROLOGICAL: Patient is awake, alert and oriented person and place. Cranial nerves 2 through 12 are grossly intact. Mild swelling with swelling noted in the right ankle Skin; 5 cm ulcer on the right shoulder with minimal drainage ASSESSMENT AND PLAN 1. Acute on chronic metabolic encephalopathy likely dehydration with possible pneumonia on chest x-ray. procalcitonin ordered. Continue hydration. IV fluids at 100 mL per hour. Urine drug screen was negative. EEG done previously in the last admission was negative for seizure. Plan to follow with outpatient neurologist for a prolonged EEG continue Depakote 1500 twice a day. Valproic acid levels are normal 2. Nonhealing ulcer on the right shoulder with significant slough with possible collection in the arm pit CT shoulder ordered to evaluate for collection of fluid or abscess. On Rocephin and vancomycin . Consult added for orthopedics to evaluate joint and possible debridement. 3. Abdominal wound with possible hydradenitis and cellulitis. Wound cultures sent continue vancomycin and Rocephin be consulted 4. Diabetes mellitus type 2, with hyperglycemia A1c is 5.9. history of hypoglycemia in the past,discontinued Glucophage, secondary to severe kidney failure,Accu-Cheks, blood sugars are 92-103 currently 5. Left radial head fracture, healed, not wearing slin adviced in the revious admission 6. History of seizure disorder on Depakote, 1500 mg twice a day, levels are normal. CK levels ordered 7. Prior history of syncope in the past, orthostatic vitals 8. History of seasonal affective disorderon Geodon, 40 twice a day, Prozac 40 mg daily, and Depakote 1500 mg twice a day 9. Bladder outlet obstruction, with urinary retention, Dr. Acosta has been consulted in last admission , he recommends that patient might do well with intermittent Vidal catheter, will try to remove catheter and do bladder scan every 6 hour, if > 300, vidal cathter can be reinserted with plan to follow-up in the office for teaching on intermittent cath, 10. Acute kidney failure, sec to NSAIDS, ACEI , is improving 11. anemia of chronic disease 12. DVT prophylaxis 13. GI prophylaxis COVID-19 testing negative. Patient has been hospitalized during a pandemic. DISCHARGE PLAN AFC or subacute rehab PTOT consult Impression and plan of care have been directed as dictated by the signing physician. Elsie Harris nurse practitioner acting as scribe for signing physician. Objective - Vital Signs Vital signs: Vital Signs Temp 98.7 F 10/11/21 04:30 Pulse 70 10/11/21 04:30 Resp 20 10/11/21 04:30 BP 146/79 10/11/21 04:30 Pulse Ox 95 10/11/21 04:30 Intake & Output 10/10/21 10/11/21 10/11/21 18:59 06:59 18:59 Intake Total 1400 Output Total 1950 1700 Balance -1950 -300 Intake: Intake, IV Titration 1400 Amount Vancomycin 2,000 mg In 500 Sodium Chloride 0.9% 500 ml 500 ml @ 167 mls/hr IVPB Q12H [facility] Rx#: [id number] cefTRIAXone 2 gm In 900 Sodium Chloride 0.9% 50 ml @ 100 mls/hr IVPB Q24H [facility] Rx#:[id number] Output: Urine 1950 1700 Uretheral (V[place]) 1700 Other: Voiding Method Indwelling Catheter Indwelling Catheter - Labs CBC & Chem 7: 10/10/21 15:07 10/11/21 06:43 Labs: Abnormal Lab Results - Last 24 Hours (Table) 10/10/21 10/10/21 Range/Units 15:07 15:07 RBC 2.91 L (4.30-5.90) m/uL Hgb 9.5 L (13.0-17.5) gm/dL Hct 29.7 L (39.0-53.0) % MCV 102.0 H (80.0-100.0) fL Sodium 135 L (137-145) mmol/L Glucose 132 H (74-99) mg/dL Calcium 7.9 L (8.4-10.2) mg/dL AST 14 L (17-59) U/L Total Protein 5.3 L (6.3-8.2) g/dL Albumin 2.3 L (3.5-5.0) g/dL Microbiology - Last 24 Hours (Table) 10/08/21 12:55 Gram Stain - Preliminary Arm - Right Wound Culture - Preliminary Coagulase Negative Staph 10/08/21 12:55 Blood Culture - Preliminary Blood No Growth after 48 hours 10/08/21 12:55 Blood Culture - Preliminary Blood No Growth after 48 hours 10/09/21 17:40 Gram Stain - Preliminary Abdomen Wound Culture - Preliminary
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
[2021-10-11] MEDS: SODIUM CHLORIDE 0.9% 1,000 ML IV SCH (16:39)
[2021-10-11] MEDS: ACETAMINOPHEN TAB 500 MG TAB PO PRN (19:29)
[2021-10-11] MEDS: Mirabegron [Myrbetriq] PO SCH (22:48)
--- NOTE | 2021-10-11 23:32 | P.PN ---
Subjective Progress Note Date: 10/11/21 Principal diagnosis: 1-right anterior shoulder wound 2-abdominal wall wound and abscess Patient is a 61-year-old male presenting to the hospital with weakness and some mental status changes patient also have a wound to the right anterior shoulder area as result of fall, and this patient also have a right lower abdominal wall wound and some purulent drainage which was cultured yesterday. On today's evaluation that is 10/11/2021 the patient remains to be afebrile, the patient is breathing comfortably, patient denies pain to the right anterior shoulder area , the patient denies chest pain shortness of breath or cough no abdominal pain no diarrhea, feeling better Objective - Vital Signs Vital signs: Vital Signs Temp 98.9 F 10/11/21 12:46 Pulse 67 10/11/21 12:46 Resp 17 10/11/21 12:46 BP 176/73 10/11/21 12:46 Pulse Ox 99 10/11/21 12:46 Intake & Output 10/10/21 10/11/21 10/11/21 18:59 06:59 18:59 Intake Total 1400 Output Total 1950 1700 1300 Balance -1950 -300 -1300 Intake: Intake, IV Titration 1400 Amount Vancomycin 2,000 mg In 500 Sodium Chloride 0.9% 500 ml 500 ml @ 167 mls/hr IVPB Q12H [facility] Rx#: [id number] cefTRIAXone 2 gm In 900 Sodium Chloride 0.9% 50 ml @ 100 mls/hr IVPB Q24H [facility] Rx#:[id number] Output: Urine 1950 1700 1300 Uretheral ([place]) 1700 400 Other: Voiding Method Indwelling Catheter Indwelling Catheter Indwelling Catheter # Bowel Movements 2 - Exam GENERAL DESCRIPTION: An middle-aged male lying in bed in no distress RESPIRATORY SYSTEM: Unlabored breathing , decreased breath sounds at bases HEART: S1 S2 regular rate and rhythm , ABDOMEN: Soft , no tenderness EXTREMITIES: Right anterior shoulder wound is currently dressed no drainage on the dressing, RN will change the dressing mention significant decrease in the slough tissue - Labs CBC & Chem 7: 10/10/21 15:07 10/11/21 06:43 Labs: Abnormal Lab Results - Last 24 Hours (Table) 10/10/21 10/10/21 Range/Units 15:07 15:07 RBC 2.91 L (4.30-5.90) m/uL Hgb 9.5 L (13.0-17.5) gm/dL Hct 29.7 L (39.0-53.0) % MCV 102.0 H (80.0-100.0) fL Sodium 135 L (137-145) mmol/L Glucose 132 H (74-99) mg/dL Calcium 7.9 L (8.4-10.2) mg/dL AST 14 L (17-59) U/L Total Protein 5.3 L (6.3-8.2) g/dL Albumin 2.3 L (3.5-5.0) g/dL Microbiology - Last 24 Hours (Table) 10/08/21 12:55 Gram Stain - Final Arm - Right Wound Culture - Final Staphylococcus epidermidis 10/08/21 12:55 Blood Culture - Preliminary Blood No Growth after 48 hours 10/08/21 12:55 Blood Culture - Preliminary Blood No Growth after 48 hours Assessment and Plan Assessment: 1-patient with a right anterior shoulder wound traumatic with possible cellulitis local culture showing staph epi, which is oxacillin sensitive CT did not show any abscess 2-anterior abdominal wall wound abscess and cellulitis cultures finalized as staph epi oxacillin sensitive Plan: 1-patient antibiotics were adjusted to cefazolin 2 g every 8 hours with a plan to finish therapy with oral antibiotics 2-local wound care with Santyl followed by moist dressing Time with Patient: Less than 30
[2021-10-12] MEDS: ACETAMINOPHEN TAB 500 MG TAB PO PRN ×3 (03:22→20:30)
[2021-10-12] MEDS: SODIUM BICARBONATE TAB 650 MG TAB PO SCH ×2 (09:31→20:30)
[2021-10-12] MEDS: TAMSULOSIN 0.4 MG CAP.ER.24H PO SCH ×2 (09:31→20:30)
[2021-10-12] MEDS: DICYCLOMINE 10 MG CAP PO SCH ×3 (09:31→20:30)
[2021-10-12] MEDS: FINASTERIDE 5 MG TAB PO SCH (09:31)
[2021-10-12] MEDS: FLUoxetine HCL 20 MG CAP PO SCH (09:31)
[2021-10-12] MEDS: COLLAGENASE 250 UNIT/GM OINTMENT 30 GM TUBE TOPICAL SCH (09:31)
[2021-10-12] MEDS: DIVALPROEX 500 MG TABLET.DR PO SCH ×2 (09:31→20:30)
[2021-10-12] MEDS: ZIPRASIDONE 40 MG CAP PO SCH ×2 (09:31→20:30)
[2021-10-12] MEDS: FAMOTIDINE 20 MG TAB PO SCH (09:31)
[2021-10-12] MEDS: lisinopriL 10 MG TAB PO SCH (09:31)
[2021-10-12] MEDS ORDERED: VANCOMYCIN TROUGH DUE 1 EACH MISC MISCELLANE ONE (12:00)
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
--- NOTE | 2021-10-12 13:39 | P.PN ---
Subjective Progress Note Date: 10/12/21 HISTORY OF PRESENT ILLNESS This is a 61-year-old gentleman, patient of Dr. Bartholomew. Known history of diabetes mellitus type 2, COPD seizures, obstructive sleep apnea, and cancer was admitted to the hospital from 09/19-09/21 for increased weakness and a fall. Patient was seen by neurologist during his visit EEG was obtained that showed mild encephalopathy but no evidence of seizure was noted. Patient was just discharged from [facility] 2 days ago and has been living with his ex . Patient's sister is her guardian. Patient was brought in by EMS and was found to be full of urine and stool and slightly altered. Patient does not recall the events. He denies any confusion or change in mental status. Patient's alert and answering questions appropriately. He does distract from the conversation easily. Vitals were reviewed patient temp is 99.7 pulse 76 respiratory rate 18 blood pressure 137/75 oxygenating at 95% on room air. Labs were reviewed patient's WBC is 5.1 hemoglobin 10.3 platelet 243 sodium 133, creatinine 1.27 yesterday today is 1.15. Urinalysis is negative for infection and UDS and negative. Alcohol level was negative. Valproic acid level was 79.[address] brain negative for any acute changes no acute abnormality age-related changes of hypertrophy and chronic small vessel ischemia noted EKG normal sinus rhythm X-ray of right ankle suggestive of chronic fracture involving the distal fibula the soft tissue swelling present Chest x-ray suggestive of vague airspace opacities in the right upper lobe repeat chest x-ray shows resolution of the right upper lobe infiltrate. 10/10 patient examined bedside. Denies any complaints of confusion, shortness of breath or chest pain. Patient has some shoulder pain from the chronic wound but denies any other significant medical problem. We also reviewed patient is afebrile pulse 75 respiratory rate 18 blood pressure 122/78 oxygenating at 97 on room air. Labs revealed WBC 5.1 hemoglobin 10.3 sodium 133, glucose 116 and 0.14. Infectious diseases examined the patient and recommend adding vancomycin in addition to Rocephin. Wound cultures being drawn. CT of the shoulder will b e obtained as there seems to be another collection in the armpit concerning for track between the collections. 10/11: CAT scan of shoulder revealed ulceration cutaneous fat anterior to the right proximal humerus with surrounding fat stranding subcutaneous gas but without underlying fluid collection. No osseous erosion. Patient is followed by Dr. Johnston with recommendations to continue Rocephin and vancomycin, local wound care with Santyl. Consult added for orthopedics to evaluate right shoulder joint and possible debridement, wound care center consult also added. Bone culture is showing Staphylococcus epidermidis. Blood culture no growth at 48 hours. Patient was evaluated by speech therapy and patient had no signs of aspiration and can continue regular diet with thin liquids. 10/12: Patient denies any new complaints today. He has been seen by orthopedics with no concern for the right shoulder joint. No plan for any intervention. Patient also has a chronic right ankle distal fibula fracture with no plan for any intervention. Dr. Johnston is planning on oral antibiotics at the time of discharge. He is currently on cefazolin 2 g every 8 hours. Consult with Wound Center appreciated. Patient to continue weekly wound care appointment with Dr. Johnston. Anticipate discharge home tomorrow. She is legal guardian is still looking for AF home that will take him. Hopefully all things will come together for discharge Monday. REVIEW OF SYSTEMS Constitutional: No fever, no chills, no night sweats. No weight change. Reports weakness, fatigue or lethargy. No daytime sleepiness. EENT: No headache. No blurred vision or double vision, no loss of vision. No loss of Hearing, no ringing in the ears, no dizziness. No nasal drainage or congestion. No epistaxis. No sore throat. Lungs: No shortness of breath, cough, no sputum production. No wheezing. Cardiovascular: No chest pain, no lower extremity edema. No palpitations. No paroxysmal nocturnal dyspnea. No orthopnea. No lightheadedness or dizziness. No syncopal episodes. Abdominal: No abdominal pain. No nausea, vomiting. No diarrhea. No constipation. No bloody or tarry stools. No loss of appetite. Genitourinary: No dysuria, increased frequency, urgency. No urinary retention. Musculoskeletal: No myalgias. No muscle weakness, no gait dysfunction, no frequent falls. No back pain. No neck pain. Reports right arm pain reports right ankle pain Integumentary: Noted right shoulder right abdomen wounds, no lesions. No rash or pruritus. Neurologic: No aphasia. No facial droop. No change in mentation. No head injury. No headache. No paralysis. No paresthesia. Psychiatric: No depression. No anxiety. No mood swings. Endocrine: No abnormal blood sugars. No weight change. No excessive sweating or thirst. No cold intolerance. PHYSICAL EXAMINATION Gen: This is a 61 years old healthy adult HEENT: Head is atraumatic, normocephalic. Pupils equal, round. Sclerae is anicteric. NECK: Supple. No JVD. No lymphadenopathy. No thyromegaly. LUNGS: Clear to auscultation. No wheezes or rhonchi. No intercostal retractions. HEART: Regular rate and rhythm. No murmur. ABDOMEN: Soft. Bowel sounds are present. No masses. No tenderness.chronic changes of the skin right groin w suggestive of hidradenitis with purulent draiange EXTREMITIES: No pedal edema. No calf tenderness. Mild swelling in the right ankle, chronic shoulder ulcer with no drainage with acanthosis nigrans, no shoulder joint pain NEUROLOGICAL: Patient is awake, alert and oriented person and place. Cranial nerves 2 through 12 are grossly intact. Mild swelling with swelling noted in the right ankle Skin; 5 cm ulcer on the right shoulder with minimal drainage ASSESSMENT AND PLAN 1. Acute on chronic metabolic encephalopathy likely dehydration with possible pneumonia on chest x-ray. procalcitonin ordered. Continue hydration. Urine drug screen was negative. EEG done previously in the last admission was negative for seizure. Plan to follow with outpatient neurologist for a prolonged EEG continue Depakote 1500 twice a day. Valproic acid levels are normal 2. Nonhealing ulcer on the right shoulder. Continue cefazolin. Consult added for orthopedics appreciated with no plan for intervention 3. Abdominal wound with possible hydradenitis and cellulitis. Wound cultures sent continue cefazolin. 4. Diabetes mellitus type 2, with hyperglycemia A1c is 5.9. history of hypoglycemia in the past,discontinued Glucophage, secondary to severe kidney failure,Accu-Cheks, blood sugars are 92-103 currently 5. Left radial head fracture, healed. 6. History of seizure disorder on Depakote, 1500 mg twice a day, levels are normal. CK levels ordered 7. Prior history of syncope in the past, orthostatic vitals 8. History of seasonal affective disorderon Geodon, 40 twice a day, Prozac 40 mg daily, and Depakote 1500 mg twice a day 9. Bladder outlet obstruction, with urinary retention, Dr. Acosta has been consulted in last admission , he recommends that patient might do well with intermittent Vidal catheter, will try to remove catheter and do bladder scan every 6 hour, if > 300, vidal cathter can be reinserted with plan to follow-up in the office for teaching on intermittent cath, 10. Acute kidney failure, sec to NSAIDS, ACEI , is improving 11. anemia of chronic disease 12. DVT prophylaxis 13. GI prophylaxis COVID-19 testing negative. Patient has been hospitalized during a pandemic. DISCHARGE PLAN AFC , and discharged on Monday Impression and plan of care have been directed as dictated by the signing physician. Elsie Harris nurse practitioner acting as scribe for signing physician. Objective - Vital Signs Vital signs: Vital Signs Temp 97.8 F 10/12/21 07:27 Pulse 78 10/12/21 07:27 Resp 20 10/12/21 07:27 BP 136/85 10/12/21 07:27 Pulse Ox 97 10/12/21 07:27 Intake & Output 10/11/21 10/12/21 10/12/21 18:59 06:59 18:59 Intake Total 480 200 Output Total 1300 1900 Balance -820 -1700 Intake: Oral 480 200 Output: Urine 1300 1900 Uretheral (Vidal) 400 700 Other: Voiding Method Indwelling Catheter Indwelling Catheter # Bowel Movements 2 - Labs CBC & Chem 7: 10/10/21 15:07 10/11/21 06:43 Labs: Microbiology - Last 24 Hours (Table) 10/09/21 17:40 Gram Stain - Final Abdomen Wound Culture - Final Staphylococcus epidermidis 10/08/21 12:55 Blood Culture - Preliminary Blood No Growth after 72 hours 10/08/21 12:55 Blood Culture - Preliminary Blood No Growth after 72 hours 10/08/21 12:55 Gram Stain - Final Arm - Right Wound Culture - Final Staphylococcus epidermidis
[2021-10-12] MEDS: Mirabegron [Myrbetriq] PO SCH (20:31)
[2021-10-13 07:25] VITALS: RESP 18
--- NOTE | 2021-10-13 07:58 | P.DS ---
Providers Date of admission: 10/08/21 15:27 Expected date of discharge: 10/13/21 Attending physician: Jose D Bhat MD Consults: 10/09/21 16:56 Consult Physician Routine Consulting Provider: Ladi Johnston Consult Reason/Comments: right shoulder and abdominal fold wounds. Do you want consulting provider notified?: Yes 10/11/21 08:26 Consult Physician Routine Consulting Provider: Julian Gomez Consult Reason/Comments: eval right shoulder joint, debridement wound Do you want consulting provider notified?: Yes Primary care physician: [facility]ck [facility]Gary [facility] Course: HISTORY OF PRESENT ILLNESS This is a 61-year-old gentleman, patient of Dr. Bartholomew. Known history of diabetes mellitus type 2, COPD seizures, obstructive sleep apnea, and cancer was admitted to the hospital from 09/19-09/21 for increased weakness and a fall. Patient was seen by neurologist during his visit EEG was obtained that showed mild encephalopathy but no evidence of seizure was noted. Patient was just discharged from [facility] days ago and has been living with his ex . Patient's sister is her guardian. Patient was brought in by EMS and was found to be full of urine and stool and slightly altered. Patient does not recall the events. He denies any confusion or change in mental status. Patient's alert and answering questions appropriately. He does distract from the conversation easily. Vitals were reviewed patient temp is 99.7 pulse 76 respiratory rate 18 blood pressure 137/75 oxygenating at 95% on room air. Labs were reviewed patient's WBC is 5.1 hemoglobin 10.3 platelet 243 sodium 133, creatinine 1.27 yesterday today is 1.15. Urinalysis is negative for infection and UDS and negative. Alcohol level was negative. Valproic acid level was 79.[address] brain negative for any acute changes no acute abnormality age-related changes of hypertrophy and chronic small vessel ischemia noted EKG normal sinus rhythm X-ray of right ankle suggestive of chronic fracture involving the distal fibula the soft tissue swelling present Chest x-ray suggestive of vague airspace opacities in the right upper lobe repeat chest x-ray shows resolution of the right upper lobe infiltrate. 2/6 patient examined bedside. Denies any complaints of confusion, shortness of breath or chest pain. Patient has some shoulder pain from the chronic wound but denies any other significant medical problem. We also reviewed patient is afebrile pulse 75 respiratory rate 18 blood pressure 122/78 oxygenating at 97 on room air. Labs revealed WBC 5.1 hemoglobin 10.3 sodium 133, glucose 116 and 0.14. Infectious diseases examined the patient and recommend adding vancomycin in addition to Rocephin. Wound cultures being drawn. CT of the shoulder will be obtained as there seems to be another collection in the armpit concerning for track between the collections. 10/11: CAT scan of shoulder revealed ulceration cutaneous fat anterior to the right proximal humerus with surrounding fat stranding subcutaneous gas but without underlying fluid collection. No osseous erosion. Patient is followed by Dr. Johnston with recommendations to continue Rocephin and vancomycin, local wound care with Salvatore. Consult added for orthopedics to evaluate right shoulder joint and possible debridement, wound care center consult also added. Bone culture is showing Staphylococcus epidermidis. Blood culture no growth at 48 hours. Patient was evaluated by speech therapy and patient had no signs of aspiration and can continue regular diet with thin liquids. 10/12: Patient denies any new complaints today. He has been seen by orthopedics with no concern for the right shoulder joint. No plan for any intervention. Patient also has a chronic right ankle distal fibula fracture with no plan for any intervention. Dr. Johnston is planning on oral antibiotics at the time of discharge. He is currently on cefazolin 2 g every 8 hours. Consult with Wound Center appreciated. Patient to continue weekly wound care appointment with Dr. Johnston. Anticipate discharge home tomorrow. She is legal guardian is still looking for [facility] home that will take him. Hopefully all things will come together for discharge Monday. 10/13: Patient is seen today in follow-up. No new concerns, no fever or chills. He remains with Vidal catheter in place. Dressing is in place to the right shoulder. Dr. Johnston would like for vancomycin and tetracycline for 10 day course, PICC line ordered. Regarding Vidal catheter, this will remain in place as advised by urology and may be removed at the custodial with bladder scans and reinsertion of Vidal if necessary. Patient needs follow-up with urology. Also, guardianship issue is to be addressed today and social work is working on discharge plan to subacute rehab. Patient has been afebrile, heart rate 70, blood pressure 146/86, pulse ox 95% on room air. Patient will be discharged today in stable condition. DISCHARGE DIAGNOSES 1. Acute on chronic metabolic encephalopathy likely dehydration with possible pneumonia on chest x-ray. 2. Nonhealing ulcer on the right shoulder. 3. Abdominal wound with possible hydradenitis and cellulitis. 4. Diabetes mellitus type 2, with hyperglycemia A1c is 5.9. 5. Left radial head fracture, healed. 6. History of seizure disorder. 7. Prior history of syncope in the past. 8. History of seasonal affective disorderon. 9. Bladder outlet obstruction, with urinary retention, Dr. Acosta has been consulted in last admission, he recommends that patient might do well with intermittent Vidal catheter. Plan to remove catheter and do bladder scan every 6 hour, if > 300, vidal cathter can be reinserted with plan to follow-up in the office for teaching on intermittent cath. 10. Acute kidney failure. 11. Anemia of chronic disease 12. COVID-19 testing negative. Patient has been hospitalized during a pandemic. DISCHARGE PLAN Subacute rehab Greater than 35 minutes was utilized and coordinating patient's discharge. Impression and plan of care have been directed as dictated by the signing physician. Elsie Harris nurse practitioner acting as scribe for signing physician. Patient Condition at Discharge: Good Plan - Discharge Summary Discharge Rx Participant: No New Discharge Prescriptions: New Collagenase [Santyl Ointment] 1 applic TOPICAL DAILY Vancomycin 2,000 mg IVPB Q12H #20 each Tetracycline HCl 500 mg PO BID #20 capsule Continue Famotidine [Pepcid] 20 mg PO DAILY lisinopriL [Zestril] 10 mg PO DAILY FLUoxetine HCL [PROzac] 40 mg PO DAILY Tamsulosin [Flomax] 0.4 mg PO BID Dicyclomine [Bentyl] 10 mg PO TID Finasteride [Proscar] 5 mg PO DAILY Ziprasidone [Geodon] 40 mg PO BID Ergocalciferol [Vitamin D2 (1250 Mcg = 40548 Iu)] 1,250 mcg PO FR Acetaminophen Tab [Tylenol] 1,000 mg PO Q6H PRN PRN Reason: Pain Divalproex Sodium [Depakote] 1,500 mg PO BID Sodium Bicarbonate Tab 650 mg PO BID tab Mirabegron [Myrbetriq] 25 mg PO HS Nystatin/Triamcin [Nystatin-Triamcinolone] 1 applic TOPICAL BID PRN PRN Reason: Skin Irritation Discontinued Doxycycline [Vibramycin] 100 mg PO BID #20 cap Discharge Medication List FLUoxetine HCL [PROzac] 40 mg PO DAILY 04/28/17 [History] Famotidine [Pepcid] 20 mg PO DAILY 04/28/17 [History] lisinopriL [Zestril] 10 mg PO DAILY 04/28/17 [History] Dicyclomine [Bentyl] 10 mg PO TID 04/24/18 [History] Tamsulosin [Flomax] 0.4 mg PO BID 04/24/18 [History] Finasteride [Proscar] 5 mg PO DAILY 04/24/19 [History] Ziprasidone [Geodon] 40 mg PO BID 09/25/20 [History] Mirabegron [Myrbetriq] 25 mg PO HS 01/27/21 [History] Ergocalciferol [Vitamin D2 (1250 Mcg = 48960 Iu)] 1,250 mcg PO FR 03/03/21 [History] Acetaminophen Tab [Tylenol] 1,000 mg PO Q6H PRN 09/19/21 [History] Divalproex Sodium [Depakote] 1,500 mg PO BID 09/19/21 [History] Nystatin/Triamcin [Nystatin-Triamcinolone] 1 applic TOPICAL BID PRN 09/19/21 [History] Sodium Bicarbonate Tab 650 mg PO BID tab 09/21/21 [Rx] Collagenase [Santyl Ointment] 1 applic TOPICAL DAILY 10/13/21 [Rx] Tetracycline HCl 500 mg PO BID #20 capsule 10/13/21 [Rx] Vancomycin 2,000 mg IVPB Q12H #20 each 10/13/21 [Rx] Follow up Appointment(s)/Referral(s): [facility], [NON-STAFF] - 1 Week Marck Bartholomew DO [Primary Care Provider] - 1-2 days Activity/Diet/Wound Care/Special Instructions: [facility] (P: [phone]) [facility] [address] (P: [phone]) [facility] [address] [place] [address] P: [phone] ext [phone] [facility] [address], [place] (P: [phone]) Discharge Disposition: TRANSFER TO SNF/ECF
[2021-10-13] MEDS: FLUoxetine HCL 20 MG CAP PO SCH (08:48)
[2021-10-13] MEDS: DIVALPROEX 500 MG TABLET.DR PO SCH (08:49)
[2021-10-13] MEDS: SODIUM BICARBONATE TAB 650 MG TAB PO SCH (08:49)
[2021-10-13] MEDS: TAMSULOSIN 0.4 MG CAP.ER.24H PO SCH (08:49)
[2021-10-13] MEDS: DICYCLOMINE 10 MG CAP PO SCH (08:49)
[2021-10-13] MEDS: FAMOTIDINE 20 MG TAB PO SCH (08:49)
[2021-10-13] MEDS: COLLAGENASE 250 UNIT/GM OINTMENT 30 GM TUBE TOPICAL SCH (08:49)
[2021-10-13] MEDS: lisinopriL 10 MG TAB PO SCH (08:49)
[2021-10-13] MEDS: FINASTERIDE 5 MG TAB PO SCH (08:49)
[2021-10-13] MEDS: ACETAMINOPHEN TAB 500 MG TAB PO PRN (08:59)
[2021-10-13] MEDS ORDERED: VANCOMYCIN IV PER PHARMACY 1 EACH MISC MISCELLANE PRN (09:38)
[2021-10-13] MEDS ORDERED: VANCOMYCIN 2,000 MG in SODIUM CHLORIDE 0.9% 500 ML 500 ML IVPB ONE (10:00)
[2021-10-13] MEDS: ZIPRASIDONE 40 MG CAP PO SCH (10:45)
[2021-10-13 11:46] VITALS: BP 151/86; PULSE 72; TEMP 98
[2021-10-13 12:02] LABS: African American GFR (CKD) >90 (>60 ml/min/1.73 sqM); Non-African American GFR(CKD) 82 (>60 ml/min/1.73 sqM)
[2021-10-13] MEDS ORDERED: LIDOCAINE 1% INJ 10MG/ML (20 ML MDV) SQ ONE (13:57)
--- NOTE | 2021-10-13 15:34 | IR ---
EXAMINATION TYPE: IR cvc insert >=5 years DATE OF EXAM: 10/13/2021 COMPARISON: NONE CLINICAL HISTORY: Infection Needs long-term intravenous access for antibiotics. PROCEDURE: Hand hygiene obtained with soap and water and alcohol-based hand rub. After informed consent, the skin overlying the left basilic vein was localized with ultrasound and no neftali to be compressible and patent. An ultrasound image was obtained and submitted on the patient's c vann. The overlying skin was prepped and draped and Lidocaine was used for local anesthesia. A skin stephany was made with a scalpel. Access was gained to the vein under ultrasound guidance with a 21 gau ge needle and a 0.018 inch wire was advanced. Access site was dilated with Peel-Away sheath and cath eter tailored to the appropriate length and advanced such that the distal tip is at the cavoatrial ju nction. Spot image was obtained verifying placement. Catheter was fixed to the skin and a sterile d ressing was placed following hemostasis. Catheter was aspirated and flushed with saline. Patient wa s discharged in stable condition without complication. Maximal barrier technique is utilized. Ultras ound image is documented on the chart. Ultrasound used with sterile technique. Fluoro time and fluoroscopic images submitted to document procedure: 0.3 minutes fluoroscopy time, 27 intraoperative C-arm images document the procedure IMPRESSION: STATUS POST ULTRASOUND AND FLUOROSCOPIC GUIDED PICC LINE PLACEMENT, READY FOR USE. THIS PROCEDURE WAS PERFORMED BY THE UNDERSIGNED.
[2021-10-14] MEDS ORDERED: VANCOMYCIN 2,000 MG in SODIUM CHLORIDE 0.9% 500 ML 500 ML IVPB SCH (03:00)
== END 2021-10-13 17:50 | DRG 193 ==
LOC: EC 12:13 → 5NMEDONC 15:27
PROVIDERS: ADMIT Internal Medicine; ATTEND Internal Medicine
PROC: 05HC33Z Insertion of Infusion Device into Left Basilic Vein, Percutaneous Approach (ICD-10-PCS; principal; 2021-10-13 14:20)
DX: J18.9 Pneumonia, unspecified organism (principal); G93.41 Metabolic encephalopathy; J44.0 Chronic obstructive pulmonary disease with (acute) lower respiratory infection; L03.311 Cellulitis of abdominal wall; N17.9 Acute kidney failure, unspecified; E86.0 Dehydration; D63.8 Anemia in other chronic diseases classified elsewhere; E11.65 Type 2 diabetes mellitus with hyperglycemia; E78.5 Hyperlipidemia, unspecified; F17.210 Nicotine dependence, cigarettes, uncomplicated; Z20.822 Contact with and (suspected) exposure to COVID-19; F25.9 Schizoaffective disorder, unspecified; F31.9 Bipolar disorder, unspecified; G40.909 Epilepsy, unspecified, not intractable, without status epilepticus; I50.9 Heart failure, unspecified; I11.0 Hypertensive heart disease with heart failure; L98.492 Non-pressure chronic ulcer of skin of other sites with fat layer exposed; N40.0 Benign prostatic hyperplasia without lower urinary tract symptoms; S82.61XD Displaced fracture of lateral malleolus of right fibula, subsequent encounter for closed fracture with routine healing; Z87.81 Personal history of (healed) traumatic fracture; Z79.899 Other long term (current) drug therapy; Z80.0 Family history of malignant neoplasm of digestive organs; Z80.42 Family history of malignant neoplasm of prostate; Z86.73 Personal history of transient ischemic attack (TIA), and cerebral infarction without residual deficits; Z88.1 Allergy status to other antibiotic agents; Z88.2 Allergy status to sulfonamides; Z91.81 History of falling; Z88.5 Allergy status to narcotic agent; N32.0 Bladder-neck obstruction
CPT/HCPCS: 36415; 36573; 70450; 71046; 80053; 80164; 80306; 80320; 81001; 82550; 82565; 83605; 84145; 84484; 85025; 85610; 85730; 86140; 87040; 87070; 87077; 87186; 87205; 87635; 93005; 96360; 99285

== ENCOUNTER 2023-02-25 10:36 | Observation (INO) | payer MEDICARE, OTHER ==
[2023-02-25] MEDS ORDERED: SODIUM CHLORIDE 0.9% 1,000 ML IV STA (11:14)
[2023-02-25 11:48] LABS: Basophils % (A) 0 %; Eosinophils # (A) 0.2 k/uL (0-0.7); Eosinophils % (A) 2 %; HCT 42.3 % (39.0-53.0); HGB 14.3 gm/dL (13.0-17.5); Lymphocytes # (A) 1.2 k/uL (1.0-4.8); Lymphocytes % (A) 20 %; MCH 32.5 pg (25.0-35.0); MCHC 33.9 g/dL (31.0-37.0); Mean Platelet Volume 8.1; Monocytes # (A) 0.5 k/uL (0-1.0); Monocytes % (A) 8 %; Neutrophils # (A) 4.2 k/uL (1.3-7.7); Neutrophils % (A) 68 %; Platelet Count 107 k/uL (150-450); RDW 13.6 % (11.5-15.5); WBC 6.2 k/uL (3.8-10.6)
[2023-02-25 12:01] LABS: ALT 14 U/L (4-49); AST 25 U/L (17-59); African American GFR (CKD) >90 (>60 ml/min/1.73 sqM); Albumin 3.4 g/dL (3.5-5.0); Alkaline Phosphatase 68 U/L (38-126); Anion Gap 8 mmol/L; Blood Urea Nitrogen 43 mg/dL (9-20); Carbon Dioxide 24 mmol/L (22-30); Chloride 107 mmol/L (98-107); Glucose 86 mg/dL (74-99); Magnesium 1.9 mg/dL (1.6-2.3); Non-African American GFR(CKD) 78 (>60 ml/min/1.73 sqM); Potassium 4.5 mmol/L (3.5-5.1); Sodium 139 mmol/L (137-145); Total Bilirubin 0.7 mg/dL (0.2-1.3); Total Protein 6.9 g/dL (6.3-8.2)
--- NOTE | 2023-02-25 12:05 | CT ---
EXAMINATION TYPE: CT brain baltazar vogt DATE OF EXAM: 02/25/2023 COMPARISON: 1522 HISTORY: Fall with head injury. CT DLP: 1900.[address] of the brain was performed. The ventricles, basal cisterns and sulci overlying the cerebral convexities demonstrate enlargement. There is no evidence for intracranial hemorrhage or sulcal effacement. There is decreased attenuatio n about the periventricular white matter and deep white matter of both cerebral hemispheres, compatib le with chronic small vessel ischemia. No mass effects are seen. If symptoms persist consider MRI. Osseous calvarium is intact. Chronic mastoiditis right greater than left. IMPRESSION: 1. Age related atrophic and chronic small vessel ischemic change without acute intracranial process seen at this time. CT Cervical Spine: Unenhanced CT of the cervical spine was performed with bone and soft tissue window settings submitted . Coronal and sagittal reconstruction is obtained. There is normal alignment and prevertebral soft tissues. No evidence for acute cervical fracture . Scattered degenerative disc disease and spondylosis. Biapical scarring. IMPRESSION: 1. No evidence for acute fracture or subluxation of the cervical spine.
[2023-02-25 12:06] LABS: INR 0.9 (<1.2); Prothrombin Time 9.7 sec (9.0-12.0); Valproic Acid (Depakene) 119.4 ug/mL
--- NOTE | 2023-02-25 13:30 | CT ---
EXAMINATION TYPE: CT abdomen pelvis w con DATE OF EXAM: 02/25/2023 COMPARISON: 09/18/2021 HISTORY: Abdomen pain, suprapubic and LLQ pain, fall. CT DLP: 2564.7 mGycm CONTRAST: CT scan of the abdomen and pelvis is performed without Oral Contrast and with IV Contrast, patient in jected with 100 mL of Isovue 300. FINDINGS: LUNG BASES-: No visible nodule. No infiltrate. LIVER/GB: The gallbladder surgically absent. No space occupying hepatic lesion. Biliary tree is of no rmal caliber. PANCREAS: There is edema and stranding about the pancreatic head and uncinate process. Correlate for pancreatitis with amylase and lipase. No definite pancreatic mass is appreciated at this time. SPLEEN: No splenic enlargement. No lesion seen. ADRENALS: No nodule. No thickening. KIDNEYS/BLADDER: No hydronephrosis. No nephrolithiasis. No distinct renal mass. Continued distenti on of the urinary bladder diverticulum noted. Correlate for bladder outlet obstruction or neurogenic bladder. BOWEL: Normal appendix. Normal bowel caliber. No inflammation. GENITAL ORGANS: No gross abnormality. LYMPH NODES: No greater than 1cm abdominal or pelvic lymph nodes are appreciated. AORTA: No significant abnormality. OSSEOUS STRUCTURES: No significant abnormality is seen. OTHER: No significant additional abnormality is seen. IMPRESSION: 1. Correlate for uncomplicated acute pancreatitis. 2. Urinary bladder distention with similar appearing diverticula.
--- NOTE | 2023-02-25 13:31 | XR ---
EXAMINATION TYPE: XR pelvis AP view DATE OF EXAM: 02/25/2023 CLINICAL HISTORY: pain TECHNIQUE: Single view the pelvis is submitted. FINDINGS: No evidence for fracture, dislocation or bony lesion. Joint spaces are well-preserved. S I joints appear symmetric. IMPRESSION: 1. No acute fracture or dislocation seen. ICD 10 NO FRACTURE, INITIAL EVALUATION
--- NOTE | 2023-02-25 13:31 | XR ---
EXAMINATION TYPE: XR chest 2V DATE OF EXAM: 02/25/2023 COMPARISON: 10/09/2021 HISTORY: Shortness of breath TECHNIQUE: Frontal and lateral views of the chest are obtained. FINDINGS: Scattered senescent parenchymal changes noted. Hyperinflation compatible with COPD. No evidence for infiltrate. No evidence for atelectasis. Heart size is stable. Mediastinal structures are stable and grossly unremarkable. No evidence for hilar prominence. Degenerative changes dorsal spine. IMPRESSION: 1. No evidence for acute pulmonary disease.
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
[2023-02-25 14:15] LABS: Appearance,Urine Clear (Clear); Bilirubin,Urine Negative (Negative); Blood,Urine Large (Negative); Color,Urine Yellow; Glucose,Urine (UA) Negative (Negative); Ketones,Urine Negative (Negative); Leukocyte Esterase,Urine Negative (Negative); Nitrite,Urine Negative (Negative); Protein,Urine Negative (Negative); RBC,Urine >182 /hpf (0-5); Specific Gravity,Urine 1.011 (1.001-1.035); Urobilinogen,Urine <2.0 mg/dL (<2.0); WBC,Urine 7 /hpf (0-5)
[2023-02-25] MEDS ORDERED: NALOXONE 0.4 MG/ML 1 ML VIAL IV PRN (14:40)
[2023-02-25] MEDS ORDERED: CLOTRIMAZOLE 1% CREAM 30 GM TUBE TOPICAL PRN (14:42)
[2023-02-25] MEDS ORDERED: LOPERAMIDE 2 MG CAP PO PRN (14:42)
[2023-02-25] MEDS: DICYCLOMINE 10 MG CAP PO SCH ×2 (15:42→20:39)
[2023-02-25] MEDS: metFORMIN 500 MG TAB PO SCH (18:07)
[2023-02-25] MEDS: DIVALPROEX 500 MG TABLET.DR PO SCH (20:39)
[2023-02-25] MEDS: TAMSULOSIN 0.4 MG CAP.ER.24H PO SCH (20:39)
[2023-02-25] MEDS: ZIPRASIDONE 40 MG CAP PO SCH (20:39)
[2023-02-25] MEDS: NON FORMULARY DRUG (Mirabegron [Myrbetriq] 25 MG Tab.Er.24h) PO SCH (20:40)
[2023-02-25 21:01] LABS: Glucose,Whole Blood 186 mg/dL (70-110)
[2023-02-25] MEDS: HYDROCORTISONE 1% CREAM 30 GM TUBE TOPICAL SCH (22:29)
[2023-02-26 07:27] LABS: Glucose,Whole Blood 109 mg/dL (70-110)
[2023-02-26] MEDS: FAMOTIDINE 20 MG TAB PO SCH (08:32)
[2023-02-26] MEDS: DICYCLOMINE 10 MG CAP PO SCH ×3 (08:32→20:20)
[2023-02-26] MEDS: FINASTERIDE 5 MG TAB PO SCH (08:32)
[2023-02-26] MEDS: TAMSULOSIN 0.4 MG CAP.ER.24H PO SCH ×2 (08:32→20:20)
[2023-02-26] MEDS: lisinopriL 20 MG TAB PO SCH (08:32)
[2023-02-26] MEDS: FLUoxetine HCL 20 MG CAP PO SCH (08:32)
[2023-02-26] MEDS: DIVALPROEX 500 MG TABLET.DR PO SCH ×2 (08:32→20:20)
[2023-02-26] MEDS: metFORMIN 500 MG TAB PO SCH ×2 (08:32→17:49)
[2023-02-26] MEDS: ZIPRASIDONE 40 MG CAP PO SCH ×2 (08:33→20:21)
[2023-02-26] MEDS: HYDROCORTISONE 1% CREAM 30 GM TUBE TOPICAL SCH ×2 (08:33→20:23)
[2023-02-26 08:37] LABS: Basophils % (A) 0 %; Eosinophils # (A) 0.3 k/uL (0-0.7); Eosinophils % (A) 4 %; HCT 45.5 % (39.0-53.0); HGB 15.3 gm/dL (13.0-17.5); Lymphocytes # (A) 1.4 k/uL (1.0-4.8); Lymphocytes % (A) 20 %; MCH 32.8 pg (25.0-35.0); MCHC 33.5 g/dL (31.0-37.0); MCV 97.9 fL (80.0-100.0); Mean Platelet Volume 7.5; Monocytes # (A) 0.6 k/uL (0-1.0); Monocytes % (A) 9 %; Neutrophils # (A) 4.8 k/uL (1.3-7.7); Neutrophils % (A) 67 %; Platelet Count 126 k/uL (150-450); RBC 4.65 m/uL (4.30-5.90); RDW 13.1 % (11.5-15.5); WBC 7.1 k/uL (3.8-10.6)
[2023-02-26 08:55] LABS: African American GFR (CKD) >90 (>60 ml/min/1.73 sqM); Anion Gap 8 mmol/L; Blood Urea Nitrogen 40 mg/dL (9-20); Calcium 8.8 mg/dL (8.4-10.2); Carbon Dioxide 21 mmol/L (22-30); Chloride 107 mmol/L (98-107); Glucose 98 mg/dL (74-99); Non-African American GFR(CKD) 86 (>60 ml/min/1.73 sqM); Potassium 5.1 mmol/L (3.5-5.1); Sodium 136 mmol/L (137-145)
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
[2023-02-26 17:19] LABS: Glucose,Whole Blood 153 mg/dL (70-110)
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
[2023-02-26 20:04] LABS: Glucose,Whole Blood 391 mg/dL (70-110)
[2023-02-26] MEDS: NON FORMULARY DRUG (Mirabegron [Myrbetriq] 25 MG Tab.Er.24h) PO SCH (21:10)
[2023-02-27 07:04] LABS: Glucose,Whole Blood 112 mg/dL (70-110)
[2023-02-27] MEDS: FAMOTIDINE 20 MG TAB PO SCH (08:23)
[2023-02-27] MEDS: DICYCLOMINE 10 MG CAP PO SCH ×3 (08:23→22:18)
[2023-02-27] MEDS: FLUoxetine HCL 20 MG CAP PO SCH (08:23)
[2023-02-27] MEDS: DIVALPROEX 500 MG TABLET.DR PO SCH ×2 (08:23→19:50)
[2023-02-27] MEDS: TAMSULOSIN 0.4 MG CAP.ER.24H PO SCH ×2 (08:23→19:50)
[2023-02-27] MEDS: FINASTERIDE 5 MG TAB PO SCH (08:23)
[2023-02-27] MEDS: metFORMIN 500 MG TAB PO SCH ×2 (08:23→17:49)
[2023-02-27] MEDS: ZIPRASIDONE 40 MG CAP PO SCH ×2 (08:23→17:49)
[2023-02-27] MEDS: HYDROCORTISONE 1% CREAM 30 GM TUBE TOPICAL SCH ×2 (08:24→19:51)
[2023-02-27] MEDS: lisinopriL 20 MG TAB PO SCH (11:44)
[2023-02-27 11:50] LABS: Glucose,Whole Blood 398 mg/dL (70-110)
[2023-02-27] MEDS ORDERED: DEXTROSE 50% SYRINGE 50 ML IVP PRN ×2 (12:13)
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
[2023-02-27] MEDS: INSULIN ASPART (NovoLOG) 100 UNIT/ML VIAL SQ SCH ×3 (13:20→20:50)
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
--- NOTE | 2023-02-27 15:14 | P.PN ---
Subjective Progress Note Date: 02/27/23 patient is a 62-year-old gentleman with past medical history significant for COPD, BPH, hypertension, memory impairment, seizure disorder who presented to the ER from custodial after a fall. Patient states that he tripped while ambulating. Patient was covered in his own urine. Denies any loss of consc iousness. Denies any chest pain or shortness of breath. Because of this fall patient was brought to the ER Initial lab work done in the ER showed WBC 6.2, hemoglobin 14.3, crit of 107, sodium 139, potassium 4.5, BUN 43, cr1.03, AST 25, ALT 14 CT abdominal pelvis done showed possible uncomplicated acute pancreatitis. Urinary bladder distention with similar appearing diverticula CT head and cervical spine done showed age-related atrophic and chronic small vessel ischemic change without acute intracranial process Chest x-ray negative for acute pulmonary disease 02/27. Patient seen and examined. Hematuria has improved, [place] in place. Psych consulted for depression REVIEW OF SYSTEMS: CONSTITUTIONAL: No fever, no malaise,. CARDIOVASCULAR: No chest pain, no palpitations, no syncope. PULMONARY: No shortness of breath, no cough, GASTROINTESTINAL: No diarrhea, no nausea, no vomiting, no abdominal pain. NEUROLOGICAL: No headaches, no weakness, PHYSICAL EXAMINATION: GENERAL: The patient is alert and oriented x3, not in any acute distress. Well developed, well nourished. HEENT: Pupils are round and equally reacting to light. EOMI. No scleral icterus. No conjunctival pallor. Normocephalic, atraumatic. No pharyngeal erythema. No thyromegaly. CARDIOVASCULAR: S1 and S2 present. No murmurs, rubs, or gallops. PULMONARY: Chest is clear to auscultation, no wheezing or crackles. ABDOMEN: Soft, nontender, nondistended, normoactive bowel sounds. No palpable organomegaly. MUSCULOSKELETAL: No joint swelling or deformity. EXTREMITIES: No cyanosis, clubbing, or pedal edema. NEUROLOGICAL: Gross neurological examination did not reveal any focal deficits. SKIN: No rashes. Assessment and plan Acute pancreatitis Inability to take care of himself Urinary retention Bhn-lthlqfb-zrxofgyer diabetes mellitus Hypertension Hematuria Monitor vital signs Monitor CBC Monitor CMP Fall precautions Delirium precautions Continue IV fluids Follow-up and PT OT recommendations Follow-up on urology recommendations Psych consulted Objective - Vital Signs Vital signs: Vital Signs Temp 98.6 F 02/27/23 12:37 Pulse 65 02/27/23 12:37 Resp 20 02/27/23 12:37 BP 90/59 02/27/23 12:37 Pulse Ox 96 02/27/23 12:37 FiO2 Intake & Output 02/26/23 02/27/23 02/27/23 18:59 06:59 18:59 Intake Total 60 Output Total 600 300 Balance -600 -240 Intake: Oral 60 Output: Urine 600 300 Other: Voiding Method Indwelling Catheter Indwelling Catheter Indwelling Catheter - Labs CBC & Chem 7: 02/26/23 07:55 02/26/23 07:55 Labs: Abnormal Lab Results - Last 24 Hours (Table) 02/26/23 02/26/23 02/27/23 Range/Units 17:16 20:03 07:03 POC Glucose (mg/dL) 153 H 391 H 112 H (70-110) mg/dL 02/27/23 Range/Units 11:48 POC Glucose (mg/dL) 398 H (70-110) mg/dL Microbiology - Last 24 Hours (Table) 02/25/23 11:34 Blood Culture - Preliminary Blood 02/25/23 11:12 Blood Culture - Preliminary Blood
[2023-02-27] MEDS: HYDROPHILIC CREAM 180 GM TUBE TOPICAL SCH (16:00)
[2023-02-27 17:07] LABS: Glucose,Whole Blood 81 mg/dL (70-110)
[2023-02-27] MEDS: ACETAMINOPHEN TAB 325 MG TAB PO PRN (19:50)
[2023-02-27] MEDS: NON FORMULARY DRUG (Mirabegron [Myrbetriq] 25 MG Tab.Er.24h) PO SCH (19:51)
[2023-02-27] MEDS: VENLAFAXINE HCL ER 75 MG CAP PO SCH (19:51)
[2023-02-27 20:13] LABS: Glucose,Whole Blood 189 mg/dL (70-110)
[2023-02-28] MEDS: ACETAMINOPHEN TAB 325 MG TAB PO PRN (06:52)
[2023-02-28 06:59] LABS: Glucose,Whole Blood 108 mg/dL (70-110)
[2023-02-28] MEDS: INSULIN ASPART (NovoLOG) 100 UNIT/ML VIAL SQ SCH ×4 (09:16→20:30)
[2023-02-28] MEDS: DICYCLOMINE 10 MG CAP PO SCH ×3 (09:18→20:29)
[2023-02-28] MEDS: FAMOTIDINE 20 MG TAB PO SCH (09:18)
[2023-02-28] MEDS: ZIPRASIDONE 40 MG CAP PO SCH ×2 (09:18→17:40)
[2023-02-28] MEDS: metFORMIN 500 MG TAB PO SCH ×2 (09:18→17:40)
[2023-02-28] MEDS: TAMSULOSIN 0.4 MG CAP.ER.24H PO SCH ×2 (09:18→20:29)
[2023-02-28] MEDS: FINASTERIDE 5 MG TAB PO SCH (09:19)
[2023-02-28] MEDS: DIVALPROEX 500 MG TABLET.DR PO SCH ×2 (09:19→20:29)
[2023-02-28] MEDS: HYDROPHILIC CREAM 180 GM TUBE TOPICAL SCH (09:19)
[2023-02-28] MEDS: HYDROCORTISONE 1% CREAM 30 GM TUBE TOPICAL SCH ×2 (09:20→20:30)
[2023-02-28 12:13] LABS: Glucose,Whole Blood 119 mg/dL (70-110)
--- NOTE | 2023-02-28 13:33 | P.PN ---
Subjective Progress Note Date: 02/28/23 patient is a 62-year-old gentleman with past medical history significant for COPD, BPH, hypertension, memory impairment, seizure disorder who [facility]. Patient states that he tripped while ambulating. Patient was covered in his own urine. Denies any loss of consc iousness. Denies any chest pain or shortness of breath. Because of this fall patient was brought to the ER Initial lab work done in the ER showed WBC 6.2, hemoglobin 14.3, crit of 107, sodium 139, potassium 4.5, BUN 43, cr1.03, AST 25, ALT 14 CT abdominal pelvis done showed possible uncomplicated acute pancreatitis. Urinary bladder distention with similar appearing diverticula CT head and cervical spine done showed age-related atrophic and chronic small vessel ischemic change without acute intracranial process Chest x-ray negative for acute pulmonary disease 02/27. Patient seen and examined. Hematuria has improved, Og[place] in place. Psych consulted for depression 02/28. Patient seen and examined. PT and OT recommended rehab. No episodes of hematuria. REVIEW OF SYSTEMS: CONSTITUTIONAL: No fever, no malaise,. CARDIOVASCULAR: No chest pain, no palpitations, no syncope. PULMONARY: No shortness of breath, no cough, GASTROINTESTINAL: No diarrhea, no nausea, no vomiting, no abdominal pain. NEUROLOGICAL: No headaches, no weakness, PHYSICAL EXAMINATION: GENERAL: The patient is alert and oriented x2-3, not in any acute distress. Well developed, well nourished. HEENT: Pupils are round and equally reacting to light. EOMI. No scleral icterus. No conjunctival pallor. Normocephalic, atraumatic. No pharyngeal erythema. No thyromegaly. CARDIOVASCULAR: S1 and S2 present. No murmurs, rubs, or gallops. PULMONARY: Chest is clear to auscultation, no wheezing or crackles. ABDOMEN: Soft, nontender, nondistended, normoactive bowel sounds. No palpable organomegaly. MUSCULOSKELETAL: No joint swelling or deformity. EXTREMITIES: No cyanosis, clubbing, or pedal edema. NEUROLOGICAL: Gross neurological examination did not reveal any focal deficits. SKIN: No rashes. Assessment and plan Acute pancreatitis resolved Inability to take care of himself Urinary retention Wzd-ilizqia-kbimldxds diabetes mellitus Hypertension Hematuria Monitor vital signs Monitor CBC Monitor CMP Fall precautions Delirium precautions PT and OT recommended rehab Follow-up on urology recommendations Psych recommended the following Decrease Depakote to 1000 mg in the morning and 1500 mg at bedtime for mood stabilization. Concern for oversedation. Discontinue prozac and start effexor XR 75 mg at bedtime for depression/anxiety/PTSD Change geodon to 40 mg twice daily with meals for psychosis/mood stabilization. Objective - Vital Signs Vital signs: Vital Signs Temp 97.4 F L 02/28/23 11:50 Pulse 71 02/28/23 11:50 Resp 15 02/28/23 11:50 BP 155/83 02/28/23 11:50 Pulse Ox 95 02/28/23 11:50 FiO2 Intake & Output 02/27/23 02/28/23 02/28/23 18:59 06:59 18:59 Output Total 375 1050 925 Balance -375 -1740 928 Output: Urine 375 1050 925 Other: Voiding Method Indwelling Catheter Indwelling Catheter Indwelling Catheter # Bowel Movements 2 1 - Labs CBC & Chem 7: 02/26/23 07:55 02/26/23 07:55 Labs: Abnormal Lab Results - Last 24 Hours (Table) 02/27/23 02/28/23 02/28/23 Range/Units 20:12 06: 12:10 POC Glucose (mg/dL) 189 H 119 H (70-110) mg/dL Hemoglobin A1c 6.2 H (<=6.0) % Microbiology - Last 24 Hours (Table) 02/25/23 11:34 Blood Culture - Preliminary Blood 02/25/23 11:12 Blood Culture - Preliminary Blood
--- NOTE | 2023-02-28 13:48 | P.PN ---
Progress Note - Text Progress Note Date: 02/28/23 Interval History: Patient was seen resting in bed and was directable and agreeable to speak with the junior technical writer in his room. Currently, the patient is alert and oriented 3. He is not reporting any significant symptoms of depression at this time and reports that he was able to sleep well and has good appetite. He did not realize lunch was in the room and begins eating his lunch during the interview. He is not endorsing any suicidal or homicidal ideation, intention, and/or plan. He is not reporting any auditory or visual hallucinations. He reports no paranoia or other delusions. He has been adherent with his medication and is not reporting any significant side effects. He denies any medical issues or concerns to this provider today. Mental Status Exam: General Appearance: Patient appears to be stated age is alert, directable, and cooperative. Behavior: Patient is calmly seated without any agitated behavior. Patient is calmly eating his lunch. Speech: Patient's speech is fluent and nonpressured. Mood/Affect: Mood is improving mildly, affect is congruent and constricted. Suicidality/Homicidality: Patient reports no suicidal or homicidal ideation, intention, and/or plan. Perceptions: Patient denies any visual hallucinations and denies any auditory mckeon llucinations Though content/process: There is no evidence of any delusional thought content and thought process is linear and goal-directed. Memory and concentration: AOX3, grossly intact for the purposes of this session Judgment and insight: Improving mildly Vital Signs Temp 97.4 F L 02/28/23 11:50 Pulse 71 02/28/23 11:50 Resp 15 02/28/23 11:50 BP 155/83 02/28/23 11:50 Pulse Ox 95 02/28/23 11:50 FiO2 Intake & Output 02/27/23 02/28/23 02/28/23 18:59 06:59 18:59 Output Total 375 1050 925 Balance -708 -1050 920 Output: Urine 375 1050 925 Other: Voiding Method Indwelling Catheter Indwelling Catheter Indwelling Catheter # Bowel Movements 2 1 Laboratory Results WBC 7.1 k/uL (3.8-10.6) 02/26/23 07:55 RBC 4.65 m/uL (4.30-5.90) 02/26/23 07:55 Hgb 15.3 gm/dL (13.0-17.5) 02/26/23 07:55 Hct 45.5 % (39.0-53.0) 02/26/23 07:55 MCV 97.9 fL (80.0-100.0) 02/26/23 07:55 MCH 32.8 pg (25.0-35.0) 02/26/23 07:55 MCHC 33.5 g/dL (31.0-37.0) 02/26/23 07:55 RDW 13.1 % (11.5-15.5) 02/26/23 07:55 Plt Count 126 k/uL (150-450) L 02/26/23 07:55 MPV 7.5 02/26/23 07:55 Neutrophils % 67 % 02/26/23 07:55 Lymphocytes % 20 % 02/26/23 07:55 Monocytes % 9 % 02/26/23 07:55 Eosinophils % 4 % 02/26/23 07:55 Basophils % 0 % 02/26/23 07:55 Neutrophils # 4.8 k/uL (1.3-7.7) 02/26/23 07:55 Lymphocytes # 1.4 k/uL (1.0-4.8) 02/26/23 07:55 Monocytes # 0.6 k/uL (0-1.0) 02/26/23 07:55 Eosinophils # 0.3 k/uL (0-0.7) 02/26/23 07:55 Basophils # 0.0 k/uL (0-0.2) 02/26/23 07:55 PT 9.7 sec (9.0-12.0) 02/25/23 11:40 INR 0.9 (<1.2) 02/25/23 11:40 APTT 26.0 sec (22.0-30.0) 02/25/23 11:40 Sodium 136 mmol/L (137-145) L 02/26/23 07:55 Potassium 5.1 mmol/L (3.5-5.1) 02/26/23 07:55 Chloride 107 mmol/L (98-107) 02/26/23 07:55 Carbon Dioxide 21 mmol/L (22-30) L 02/26/23 07:55 Anion Gap 8 mmol/L 02/26/23 07:55 BUN 40 mg/dL (9-20) H 02/26/23 07:55 Creatinine 0.96 mg/dL (0.66-1.25) 02/26/23 07:55 Est GFR (CKD-EPI)AfAm >90 (>60 ml/min/1.73 sqM) 02/26/23 07:55 Est GFR (CKD-EPI)NonAf 86 (>60 ml/min/1.73 sqM) 02/26/23 07:55 Glucose 98 mg/dL (74-99) 02/26/23 07:55 POC Glucose (mg/dL) 119 mg/dL (70-110) H 02/28/23 12:10 POC Glu Media Consultant Arlyn Patel 02/28/23 12:[address] Glu mg/dL 131 mg/dL 02/28/23 06:27 Hemoglobin A1c 6.2 % (<=6.0) H 02/28/23 06:27 Plasma Lactic Acid Beto 0.7 mmol/L (0.7-2.0) 02/25/23 11:40 Calcium 8.8 mg/dL (8.4-10.2) 02/26/23 07:55 Magnesium 1.9 mg/dL (1.6-2.3) 02/25/23 11:40 Total Bilirubin 0.7 mg/dL (0.2-1.3) 02/25/23 11:40 AST 25 U/L (17-59) 02/25/23 11:40 ALT 14 U/L (4-49) 02/25/23 11:40 Alkaline Phosphatase 68 U/L (38-126) 02/25/23 11:40 Troponin I 0.012 ng/mL (0.000-0.034) 02/25/23 11:40 Total Protein 6.9 g/dL (6.3-8.2) 02/25/23 11:40 Albumin 3.4 g/dL (3.5-5.0) L 02/25/23 11:40 Lipase 389 U/L (23-300) H 02/25/23 11:40 Urine Color Yellow 02/25/23 13:59 Urine Appearance Clear (Clear) 02/25/23 13:59 Urine pH 5.0 (5.0-8.0) 02/25/23 13:59 Ur Specific [place] 1.011 (1.001-1.035) 02/25/23 13:59 Urine Protein Negative (Negative) 02/25/23 13:59 Urine Glucose (UA) Negative (Negative) 02/25/23 13:59 Urine Ketones Negative (Negative) 02/25/23 13:59 Urine Blood Large (Negative) H 02/25/23 13:59 Urine Nitrite Negative (Negative) 02/25/23 13:59 Urine Bilirubin Negative (Negative) 02/25/23 13:59 Urine Urobilinogen <2.0 mg/dL (<2.0) 02/25/23 13:59 Ur Leukocyte Esterase Negative (Negative) 02/25/23 13:59 Urine RBC >182 /hpf (0-5) H 02/25/23 13:59 Urine WBC 7 /hpf (0-5) H 02/25/23 13:59 Valproic Acid 119.4 ug/mL 02/25/23 11:40 Assessment Schizoaffective disorder, bipolar type Acute pancreatitis Inability to take care of himself Urinary retention Buz-ynzmpsz-czjgujyhs diabetes mellitus Hypertension Hematuria Plan: -Continue your medical management. -At this time patient DOES NOT meet criteria for inpatient psychiatric admission. The patient is not endorsing any suicidal or homicidal ideation, intention, and/or plan. He is not presenting an imminent risk of self-harm or harm to others. He does not appear to be overtly manic or psychotic. -Would recommend the following medication changes/additions: Continue Depakote 1000 mg in the morning and 1500 mg at bedtime for mood stabilization. Concern for oversedation. Continue Effexor XR 75 mg at bedtime for depression/anxiety/PTSD Continue geodon 40 mg twice daily with meals for psychosis/mood stabilization. -Currently does not require 1:1 sitter. -Psychiatry will follow loosely as long as the patient is admitted to the hospital, however, the patient is psychiatrically cleared for discharge. -Recommend case management to set up outpatient psychiatric appointments. -Please call us with any questions or concerns.
[2023-02-28 17:29] LABS: Glucose,Whole Blood 155 mg/dL (70-110)
[2023-02-28 17:29] LABS: Glucose,Whole Blood 235 mg/dL (70-110)
[2023-02-28 17:37] LABS: Glucose,Whole Blood 223 mg/dL (70-110)
[2023-02-28 20:03] LABS: Glucose,Whole Blood 115 mg/dL (70-110)
[2023-02-28] MEDS: VENLAFAXINE HCL ER 75 MG CAP PO SCH (20:29)
[2023-02-28] MEDS: NON FORMULARY DRUG (Mirabegron [Myrbetriq] 25 MG Tab.Er.24h) PO SCH (20:30)
[2023-03-01 08:00] LABS: Glucose,Whole Blood 110 mg/dL (70-110)
[2023-03-01] MEDS: INSULIN ASPART (NovoLOG) 100 UNIT/ML VIAL SQ SCH ×4 (08:13→20:59)
[2023-03-01] MEDS: DIVALPROEX 500 MG TABLET.DR PO SCH ×2 (08:20→20:58)
[2023-03-01] MEDS: DICYCLOMINE 10 MG CAP PO SCH ×3 (08:20→20:58)
[2023-03-01] MEDS: TAMSULOSIN 0.4 MG CAP.ER.24H PO SCH ×2 (08:20→20:58)
[2023-03-01] MEDS: HYDROPHILIC CREAM 180 GM TUBE TOPICAL SCH (08:21)
[2023-03-01] MEDS: HYDROCORTISONE 1% CREAM 30 GM TUBE TOPICAL SCH ×2 (08:21→20:59)
[2023-03-01] MEDS: metFORMIN 500 MG TAB PO SCH ×2 (08:21→17:24)
[2023-03-01] MEDS: ZIPRASIDONE 40 MG CAP PO SCH ×2 (08:21→17:24)
[2023-03-01] MEDS: FAMOTIDINE 20 MG TAB PO SCH (08:21)
[2023-03-01] MEDS: FINASTERIDE 5 MG TAB PO SCH (08:21)
[2023-03-01 11:51] LABS: Glucose,Whole Blood 124 mg/dL (70-110)
--- NOTE | 2023-03-01 14:18 | P.DS ---
Providers Date of admission: 02/25/23 14:40 Attending physician: Javy Kaur MD Consults: 02/26/23 14:28 Consult Physician Urgent Consulting Provider: Jose Francisco Olivas Consult Reason/Comments: hematurea Do you want consulting provider notified?: Yes 02/27/23 12:54 Consult Physician Routine Consulting Provider: Psychiatry - [facility] Psychiatry Consult Reason/Comments: depression Do you want consulting provider notified?: Yes Primary care physician: [facility] Course: Final Diagnosis Fall at home Hx of vertigo with falls Mild acute uncomplicated pancreatitis resolved Urinary retention with indwelling vidal catheter placed Hx of urinary retention and BPH Mzt-mydpnhu-[id number] diabetes mellitus, controlled A1C 6.2 Hypertension 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 Patient has been cleared by psychiatry was recommended to follow up at [facility] on discharge. Medications have been adjusted to avoid over sedative effect. Local wound care to continue with Triad cream to pitting and did skin folds of the axilla, sacrum and abdomen follow up at [facility] wound care. Recommend to repeat labs in 2 to 3 days. Voiding trial to be completed tomorrow and follow up with urology on discharge for evaluation resolution of hematuria. Hospital Course This is a 62-year-old male who lives in adult foster care alf. Patient has history of anxiety, bipolar, depression, schizoaffective disorder as well as seizure disorder, history of hypertension, diabetes mellitus, urinary retention, heart failure, COPD, CVA/TIA, checked his sleep apnea, vertigo. Patient presents to the after a fall. Patient states that he tripped while ambulating. Patient was covered in his own urine. Denies any loss of consciousness. Denies any chest pain or shortness of breath. Because of this fall patient was brought to the ER. On admission patient had a creatinine of 1.03 and a BUN of 43. He had abdominal pelvis CT done showing a possible uncomplicated acute pancreatitis. Urinary bladder distention with similar appearing diverticula. His AST and ALT were normal, lipase was mildly elevated at 389. Urinalysis was negative for infection. A valproic acid level was 119.4. CT head and cervical spine showed age-related atrophic and chronic small vessel ischemic changes without acute intracranial process. A chest x-ray was negative for acute pulmonary disease. Patient was admitted to the hospital. Patient had indwelling catheter placed and did feel a voiding trial a Vidal catheter was reinserted and patient now with hematuria. Urology was consult and patient has a history of BPH and urinary retention in the past. He will continue with indwelling catheter and has been started on Flomax with recommendations to complete a voiding trial tomorrow and follow-up with urology on discharge. He was seen in consultation by psychiatric services recommending to decrease Depakote and patient has been changed to Effexor and prozac discontinued. Recom mending to follow up with [facility] on discharge. Patient currently denying abdominal pain states this is improved since admission, no nausea no vomiting or diarrhea. He is having normal bowel movements. He is denying any chest pain, no shortness of breath. Patient's mentation is improved he is currently alert 3 he has a flat affect. The plan is for patient to discharge to subacute rehab. Currently lungs are clear, S1 S2 auscultated, regular rate and rhythm, abdomen is soft and nontender with normactive bowel movements. Patient has IDC in place urine us straw colored. Patient is afebrile, heart rate is 68, blood pressure 125/85, 96% on room air. Patient will be discharged to subacute rehab today. See medication reconciliation for list of current medications. Thank you for allowing us to participate in the care of this patient. The impression and plan of care has been dictated by Angelita Worley Nurse Practitioner as directed. Dr. Hardik MD I have performed a history and physical examination and medical decision making of this patient, discussed the same with the dictator, and agree with the dictators assessment and plan as written, documented as a scribe. Based on total visit time, I have performed more than 50% of this visit. Patient Condition at Discharge: Stable Plan - Discharge Summary Discharge Rx Participant: Yes New Discharge Prescriptions: New Divalproex [Depakote] 1,000 mg PO DAILY #30 tab Divalproex [Depakote] 1,500 mg PO HS tab Venlafaxine HCl ER [Effexor XR] 75 mg PO HS #30 cap Acetaminophen Tab [Tylenol] 650 mg PO Q6HR PRN tab PRN Reason: Mild Pain Or Fever > 100.5 Continue Famotidine [Pepcid] 20 mg PO DAILY Tamsulosin [Flomax] 0.4 mg PO BID Dicyclomine [Bentyl] 10 mg PO Q8H Finasteride [Proscar] 5 mg PO DAILY Ziprasidone [Geodon] 40 mg PO BID Ergocalciferol [Vitamin D2 (1250 Mcg = 51791 Iu)] 1,250 mcg PO FR Loperamide [Imodium] 2 mg PO DAILY PRN PRN Reason: Diarrhea metFORMIN HCL 500 mg PO BID Triamcinolone 0.5% Cream [Kenalog 0.5% Cream] 1 applic TOPICAL BID PRN PRN Reason: skin issues Mirabegron [Myrbetriq] 25 mg PO HS Hydrocortisone Cream [Hydrocortisone 2.5% Cream] 1 applic TOPICAL BID Ketoconazole 2% Cream [Nizoral 2%] 1 applic TOPICAL BID PRN PRN Reason: skin issues lisinopriL [Zestril] 20 mg PO DAILY Discontinued FLUoxetine HCL [PROzac] 40 mg PO DAILY Divalproex Sodium [Depakote] 1,500 mg PO BID Menthol-Zinc Oxide Oint [Calmoseptine Ointment] 1 applic TOPICAL BID PRN PRN Reason: skin issues Discharge Medication List Famotidine [Pepcid] 20 mg PO DAILY 04/28/17 [History] Dicyclomine [Bentyl] 10 mg PO Q8H 04/24/18 [History] Tamsulosin [Flomax] 0.4 mg PO BID 04/24/18 [History] Finasteride [Proscar] 5 mg PO DAILY 04/24/19 [History] Ziprasidone [Geodon] 40 mg PO BID 09/25/20 [History] Mirabegron [Myrbetriq] 25 mg PO HS 01/27/21 [History] Ergocalciferol [Vitamin D2 (1250 Mcg = 65819 Iu)] 1,250 mcg PO FR 03/03/21 [History] Hydrocortisone Cream [Hydrocortisone 2.5% Cream] 1 applic TOPICAL BID 02/25/23 [History] Ketoconazole 2% Cream [Nizoral 2%] 1 applic TOPICAL BID PRN 02/25/23 [History] Loperamide [Imodium] 2 mg PO DAILY PRN 02/25/23 [History] Triamcinolone 0.5% Cream [Kenalog 0.5% Cream] 1 applic TOPICAL BID PRN 02/25/23 [History] lisinopriL [Zestril] 20 mg PO DAILY 02/25/23 [History] metFORMIN HCL 500 mg PO BID 02/25/23 [History] Acetaminophen Tab [Tylenol] 650 mg PO Q6HR PRN tab 03/01/23 [Rx] Divalproex [Depakote] 1,000 mg PO DAILY #30 tab 03/01/23 [Rx] Divalproex [Depakote] 1,500 mg PO HS tab 03/01/23 [Rx] Venlafaxine HCl ER [Effexor XR] 75 mg PO HS #30 cap 03/01/23 [Rx] Follow up Appointment(s)/Referral(s): Corrie Moore MD [Primary Care Provider] - 1-2 days [facility] [NON-STAFF] - 1 Week Jose Francisco Olivas MD [STAFF PHYSICIAN] - 3 Days Wound Center,[facility] [NON-STAFF] - 1 Week Ambulatory/Diagnostic Orders: Basic Metabolic Panel [LAB.AMB] Time Frame: 3 Days, Location: None Selected Complete Blood Count w/diff [LAB.AMB] Location: None Selected Activity/Diet/Wound Care/Special Instructions: Local wound care to continue with Triad cream to pitting and did skin folds of the axilla, sacrum and abdomen follow up at [facility] wound care Voiding trial to be completed tomorrow at either [facility] of subacute rehab follow up with urology in the office. Discharge Disposition: TRANSFER TO SNF/ECF
[2023-03-01 17:06] LABS: Glucose,Whole Blood 110 mg/dL (70-110)
[2023-03-01 20:09] LABS: Glucose,Whole Blood 111 mg/dL (70-110)
[2023-03-01] MEDS: VENLAFAXINE HCL ER 75 MG CAP PO SCH (20:58)
[2023-03-01] MEDS: ACETAMINOPHEN TAB 325 MG TAB PO PRN (20:58)
[2023-03-01] MEDS: NON FORMULARY DRUG (Mirabegron [Myrbetriq] 25 MG Tab.Er.24h) PO SCH (20:59)
[2023-03-02 07:22] LABS: Glucose,Whole Blood 92 mg/dL (70-110)
[2023-03-02] MEDS: INSULIN ASPART (NovoLOG) 100 UNIT/ML VIAL SQ SCH ×4 (07:52→21:08)
[2023-03-02] MEDS: FINASTERIDE 5 MG TAB PO SCH (08:33)
[2023-03-02] MEDS: metFORMIN 500 MG TAB PO SCH ×2 (08:33→17:14)
[2023-03-02] MEDS: FAMOTIDINE 20 MG TAB PO SCH (08:33)
[2023-03-02] MEDS: DICYCLOMINE 10 MG CAP PO SCH ×3 (08:34→20:58)
[2023-03-02] MEDS: ZIPRASIDONE 40 MG CAP PO SCH ×2 (08:34→17:14)
[2023-03-02] MEDS: DIVALPROEX 500 MG TABLET.DR PO SCH ×2 (08:34→20:58)
[2023-03-02] MEDS: TAMSULOSIN 0.4 MG CAP.ER.24H PO SCH ×2 (08:34→20:58)
[2023-03-02] MEDS: HYDROCORTISONE 1% CREAM 30 GM TUBE TOPICAL SCH ×2 (08:40→20:59)
[2023-03-02] MEDS: HYDROPHILIC CREAM 180 GM TUBE TOPICAL SCH (08:40)
[2023-03-02 08:55] VITALS: BMI 41.0
[2023-03-02 11:51] LABS: Glucose,Whole Blood 110 mg/dL (70-110)
--- NOTE | 2023-03-02 12:22 | P.DS ---
Providers Date of admission: 02/25/23 14:40 Attending physician: Javy Kaur MD Consults: 02/26/23 14:28 Consult Physician Urgent Consulting Provider: Jose Francisco Olivas Consult Reason/Comments: hematurea Do you want consulting provider notified?: Yes 02/27/23 12:54 Consult Physician Routine Consulting Provider: Psychiatry - [facility] Psychiatry Consult Reason/Comments: depression Do you want consulting provider notified?: Yes Primary care physician: [facility] Course: Final Diagnosis Fall at home Hx of vertigo with falls Mild acute uncomplicated pancreatitis resolved Urinary retention with indwelling vidal catheter placed Hx of urinary retention and BPH Ewm-gznupuh-evtfisfxf diabetes mellitus, controlled A1C 6.2 Hypertension 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 Patient has been cleared by psychiatry was recommended to follow up at [facility] on discharge. Medications have been adjusted to avoid over sedative effect. Local wound care to continue with Triad cream to pitting and did skin folds of the axilla, sacrum and abdomen follow up at [facility] wound care. Recommend to repeat labs in 2 to 3 days. Voiding trial to be completed this can be done once settled over at rehab facility and follow up with urology on discharge for evaluation resolution of hematuria. Continue on flomax. Repeat labs in 2 to 3 days. Hospital Course This is a 62-year-old male who lives in adult foster care care home. Patient has history of anxiety, bipolar, depression, schizoaffective disorder as well as seizure disorder, history of hypertension, diabetes mellitus, urinary retention, heart failure, COPD, CVA/TIA, checked his sleep apnea, vertigo. Patient presents to the after a fall. Patient states that he tripped while ambulating. Patient was covered in his own urine. Denies any loss of consciousness. Denies any chest pain or shortness of breath. Because of this fall patient was brought to the ER. On admission patient had a creatinine of 1.03 and a BUN of 43. He had abdominal pelvis CT done showing a possible uncomplicated acute pancreatitis. Urinary bladder distention with similar appearing diverticula. His AST and ALT were normal, lipase was mildly elevated at 389. Urinalysis was negative for infection. A valproic acid level was 119.4. CT head and cervical spine showed age-related atrophic and chronic small vessel ischemic changes without acute intracranial process. A chest x-ray was negative for acute pulmonary disease. Patient was admitted to the hospital. Patient had indwelling catheter placed and did feel a voiding trial a Vidal catheter was reinserted and patient now with hematuria. Urology was consult and patient has a history of BPH and urinary retention in the past. He will continue with indwelling catheter and has been started on Flomax with recommendations to complete a voiding trial tomorrow and follow-up with urology on discharge. He was seen in consultation by psychiatric services recommending to decrease Depakote and patient has been changed to Effexor and prozac discontinued. Recommending to follow up with [facility] on discharge. Patient currently denying abdominal pain states this is improved since admission, no nausea no vomiting or diarrhea. He is having normal bowel movements. He is denying any chest pain, no shortness of breath. Patient's mentation is improved he is currently alert 3 he has a flat affect. The plan is for patient to discharge to subacute rehab. Currently lungs are clear, S1 S2 auscultated, regular rate and rhythm, abdomen is soft and nontender with normactive bowel movements. Patient has IDC in place urine us straw colored. Patient is afebrile, heart rate is 68, blood pressure 125/85, 96% on room air. Patient will be discharged to subacute rehab today. See medication reconciliation for list of current medications. Thank you for allowing us to participate in the care of this patient. The impression and plan of care has been dictated by Angelita Worley, Nurse Practitioner as directed. Dr. Hardik MD I have performed a history and physical examination and medical decision making of this patient, discussed the same with the dictator, and agree with the dictators assessment and plan as written, documented as a scribe. Based on total visit time, I have performed more than 50% of this visit. Patient Condition at Discharge: Stable Plan - Discharge Summary Discharge Rx Participant: Yes New Discharge Prescriptions: New Divalproex [Depakote] 1,000 mg PO DAILY #30 tab Divalproex [Depakote] 1,500 mg PO HS tab Venlafaxine HCl ER [Effexor XR] 75 mg PO HS #30 cap Acetaminophen Tab [Tylenol] 650 mg PO Q6HR PRN tab PRN Reason: Mild Pain Or Fever > 100.5 Continue Famotidine [Pepcid] 20 mg PO DAILY Tamsulosin [Flomax] 0.4 mg PO BID Dicyclomine [Bentyl] 10 mg PO Q8H Finasteride [Proscar] 5 mg PO DAILY Ziprasidone [Geodon] 40 mg PO BID Ergocalciferol [Vitamin D2 (1250 Mcg = 11869 Iu)] 1,250 mcg PO FR Loperamide [Imodium] 2 mg PO DAILY PRN PRN Reason: Diarrhea metFORMIN HCL 500 mg PO BID Triamcinolone 0.5% Cream [Kenalog 0.5% Cream] 1 applic TOPICAL BID PRN PRN Reason: skin issues Mirabegron [Myrbetriq] 25 mg PO HS Hydrocortisone Cream [Hydrocortisone 2.5% Cream] 1 applic TOPICAL BID Ketoconazole 2% Cream [Nizoral 2%] 1 applic TOPICAL BID PRN PRN Reason: skin issues lisinopriL [Zestril] 20 mg PO DAILY Discontinued FLUoxetine HCL [PROzac] 40 mg PO DAILY Divalproex Sodium [Depakote] 1,500 mg PO BID Menthol-Zinc Oxide Oint [Calmoseptine Ointment] 1 applic TOPICAL BID PRN PRN Reason: skin issues Discharge Medication List Famotidine [Pepcid] 20 mg PO DAILY 04/28/17 [History] Dicyclomine [Bentyl] 10 mg PO Q8H 04/24/18 [History] Tamsulosin [Flomax] 0.4 mg PO BID 04/24/18 [History] Finasteride [Proscar] 5 mg PO DAILY 04/24/19 [History] Ziprasidone [Geodon] 40 mg PO BID 09/25/20 [History] Mirabegron [Myrbetriq] 25 mg PO HS 01/27/21 [History] Ergocalciferol [Vitamin D2 (1250 Mcg = 25363 Iu)] 1,250 mcg PO FR 03/03/21 [History] Hydrocortisone Cream [Hydrocortisone 2.5% Cream] 1 applic TOPICAL BID 02/25/23 [History] Ketoconazole 2% Cream [Nizoral 2%] 1 applic TOPICAL BID PRN 02/25/23 [History] Loperamide [Imodium] 2 mg PO DAILY PRN 02/25/23 [History] Triamcinolone 0.5% Cream [Kenalog 0.5% Cream] 1 applic TOPICAL BID PRN 02/25/23 [History] lisinopriL [Zestril] 20 mg PO DAILY 02/25/23 [History] metFORMIN HCL 500 mg PO BID 02/25/23 [History] Acetaminophen Tab [Tylenol] 650 mg PO Q6HR PRN tab 03/01/23 [Rx] Divalproex [Depakote] 1,000 mg PO DAILY #30 tab 03/01/23 [Rx] Divalproex [Depakote] 1,500 mg PO HS tab 03/01/23 [Rx] Venlafaxine HCl ER [Effexor XR] 75 mg PO HS #30 cap 03/01/23 [Rx] Follow up Appointment(s)/Referral(s): Corrie Moore MD [Primary Care Provider] - 1-2 days Wound Center,[facility] [NON-STAFF] - 1 Week [facility] [NON-STAFF] - 1 Week Jose Francisco Olivas MD [STAFF PHYSICIAN] - 3 Days Ambulatory/Diagnostic Orders: Basic Metabolic Panel [LAB.AMB] Time Frame: 3 Days, Location: None Selected Complete Blood Count w/diff [LAB.AMB] Location: None Selected Activity/Diet/Wound Care/Special Instructions: Local wound care to continue with Triad cream to pitting and did skin folds of the axilla, sacrum and abdomen follow up at [facility] wound care Voiding trial to be completed tomorrow at either [facility] of subacute rehab follow up with urology in the office.
--- NOTE | 2023-03-02 15:24 | P.PN ---
Subjective Progress Note Date: 02/23/23 Principal diagnosis: Progress note I was asked by Dr. Jj to re-connect with Pt in the medical unit. He was earlier seen and followed by Dr. Beck for his bipolar depression amid his medical admisison for his fall and altered mental status. He presented with multiple medical problems and disorders : diabetes , CVA history of CHF, arial fibrillation and urinary continence and GERD. He was worked up for acute episode of pancreatitis given he was on Depakote with possible side effect of pancreatitis. His bipolar history was focumened in Dr. 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 his multiple active med. problems make it at times difficult to optimize and to try augmentation strategies. He also presented with multiple suicidal attempts with psychiatric admisisons in the past. Today he acknowledged my presence with his slight smiles and relaxex facial expression. He was fully aware of my role and my presence. he felt at time somewhat uncomfortable with his prolonged sitting in the chair . However, he did not ruminate over his cathether. He agreed he had made marked progress in his overall medical condition. and full medical work up did not reveal anything outstanding to explain his episode of falls. he mentioned he did call "911 after the fall which was accompaneid by his urinary incontinence: he found himself in urine . I tried to assess whether he was negligent or indifferent towards hsi self-care. there was minimal clinical evidence to suggest he was on the slippgery slope of early DEMENTIA ; vascular superimposed on his bipolar and multiple med. problems. I read the entry form his daughter who was concerned over his decline in His ADL; however, he may NOT be compliant with his medication for his bipolar disroder. I am uncertain whether he was tried on DEPOT injection : invega sustenna or Abilify Maintenna who may be better suited given his apparent non-adherence towards Rx. I brought up the option of transfer to the subacute Rehab. I rephased his move in terms of his improvement in his health status. HE understood well the objective of the move; I fail to see any firm grounds for his treatment incompetence. He may be reacting towards the urinary catheter. He was not parti cularly keep to re-open the topic of psychiatric admsssion. He vaguely mentionaed he was engaged superficially to the [facility]. I inquired whether he ever received any ECT or rTMS (non-invasiv magnetic stimulation in the past. I further discussd with him his history of suicidla attempts. He did not answer drieclty and did not give any indication that he was obessed or preoccupied with the thought of dying. Given his bipolar mood swings. he may respond differently within 24-48 hrs. When he was seen by joe, he was described as responding favourably towards Rx: Geodon 40 mg po bid; effexor 75 mg po and Depakote 1750 mg total daily dosage. Todya his MSU was noted for his somewhat relaxed posture, with poverty of content of speech. no irritabiltiy no sadness or hopelessness. He was highly ambivalent towards his need for subacute Rehabilitaion which was delayed. [facility] and [facility] emergency department coordinator who would in turn contact his guardian. Apparently he was in the [facility] care schedule before. he did not have hallucinatons no suicidal plan ; no fixed delusons . His affect was slightly bunted interwined with his sporadic smiles and willingness to accept treatment by his hands shakes. Insight and jdugement has improved Diagnosis: bipolar derpession, showing partial response. Management :He woudl be reassured for Rehab. transfer. Not certifiable for acute psycharic admission. ADL would be further assessed for future level of care planning. Explore whether TMS might avert his chronicity of Bipolar and suicidal ideaiton. I recommend to slgihtly increase Effexor to 112.5 mg total daily dosage; I would nto further increase Depakote beyond 6373-1803 mg po od. Geodon 40 mg po bid would not be icnreased given the QT interval as a known side effect with higher dsoage.Management: i will further briefly assess pt on monday prior to signing off the case with the team. Objective - Vital Signs Vital signs: Vital Signs Temp 98.3 F 03/02/23 13:45 Pulse 82 03/02/23 13:45 Resp 16 03/02/23 13:45 BP 126/75 03/02/23 13:45 Pulse Ox 95 03/02/23 13:45 FiO2 Intake & Output 03/01/23 03/02/23 03/02/23 18:59 06:59 18:59 Intake Total 180 Output Total 800 1900 725 Balance -935 -3346 -969 Weight 126 kg 126 kg Intake: Oral 180 Output: Urine 800 1900 725 Other: Voiding Method Indwelling Catheter Indwelling Catheter Indwelling Catheter # Bowel Movements 1 - Labs CBC & Chem 7: 02/26/23 07:55 02/26/23 07:55 Labs: Abnormal Lab Results - Last 24 Hours (Table) 03/01/23 Range/Units 20:08 POC Glucose (mg/dL) 111 H (70-110) mg/dL
[2023-03-02 17:03] LABS: Glucose,Whole Blood 128 mg/dL (70-110)
[2023-03-02] MEDS: NON FORMULARY DRUG (Mirabegron [Myrbetriq] 25 MG Tab.Er.24h) PO SCH (20:57)
[2023-03-02] MEDS ORDERED: VENLAFAXINE HCL ER 37.5 MG CAP PO SCH (21:00)
[2023-03-02] MEDS: VENLAFAXINE HCL ER 75 MG CAP PO SCH (21:08)
[2023-03-03] MEDS: ACETAMINOPHEN TAB 325 MG TAB PO PRN (06:23)
[2023-03-03 07:05] LABS: Glucose,Whole Blood 108 mg/dL (70-110)
[2023-03-03] MEDS: INSULIN ASPART (NovoLOG) 100 UNIT/ML VIAL SQ SCH ×2 (07:49→13:16)
[2023-03-03] MEDS: FAMOTIDINE 20 MG TAB PO SCH (08:29)
[2023-03-03] MEDS: FINASTERIDE 5 MG TAB PO SCH (08:29)
[2023-03-03] MEDS: ZIPRASIDONE 40 MG CAP PO SCH (08:29)
[2023-03-03] MEDS: metFORMIN 500 MG TAB PO SCH (08:29)
[2023-03-03] MEDS: DICYCLOMINE 10 MG CAP PO SCH (08:29)
[2023-03-03] MEDS: TAMSULOSIN 0.4 MG CAP.ER.24H PO SCH (08:29)
[2023-03-03] MEDS: DIVALPROEX 500 MG TABLET.DR PO SCH (08:29)
[2023-03-03] MEDS: HYDROPHILIC CREAM 180 GM TUBE TOPICAL SCH (08:30)
[2023-03-03] MEDS: HYDROCORTISONE 1% CREAM 30 GM TUBE TOPICAL SCH (08:30)
[2023-03-03] MEDS ORDERED: ERGOCALCIFEROL 1,250 MCG (50,000 IU) CAPSULE PO SCH (09:00)
--- NOTE | 2023-03-03 10:28 | P.DS ---
Providers Date of admission: 02/25/23 14:40 Attending physician: Javy Kaur MD Consults: 02/26/23 14:28 Consult Physician Urgent Consulting Provider: Jose Francisco Olivas Consult Reason/Comments: hematurea Do you want consulting provider notified?: Yes 02/27/23 12:54 Consult Physician Routine Consulting Provider: Psychiatry - [facility] Psychiatry Consult Reason/Comments: depression Do you want consulting provider notified?: Yes Primary care physician: [facility] Course: Final Diagnosis Fall at home Hx of vertigo with falls Mild acute uncomplicated pancreatitis resolved Urinary retention resolved and discharged on flomax, IDC discontinued Hx of urinary retention and BPH [id number]-rmaperynl diabetes mellitus, controlled A1C 6.2 Hypertension Hematuria likely catheter induced improving Seizure disorder Hx of COPD with on acute exacerbation Anxiety/Bipolar/Depression/Schizoaffective disorder Chronic Medical debility GI prophylaxis Full Code Discharge Disposition Patient is stable for discharge to subacute rehab. Patient has been cleared by psychiatry was recommended to follow up at [facility] on discharge. Medications have been adjusted to avoid over sedative effect. Local wound care to continue with Triad cream to pitting and did skin folds of the axilla, sacrum and abdomen follow up at [facility] wound care. Recommend to repeat labs in 2 to 3 days. Recommending to Continue on flomax vidal cathteter has been discontinued and patient is voiding /incontinent. Urine continues be to straw color however improving this was attributed to insertional truama and patient to follow up with urology on discharge. Repeat labs in 2 to 3 days. Hospital Course This is a 62-year-old male who lives in adult foster care correction. Patient has history of anxiety, bipolar, depression, schizoaffective disorder as well as seizure disorder, history of hypertension, diabetes mellitus, urinary retention, heart failure, COPD, CVA/TIA, checked his sleep apnea, vertigo. Patient presents to the EC after a fall. Patient states that he tripped while ambulating. Patient was covered in his own urine. Denies any loss of consciousness. Denies any chest pain or shortness of breath. Because of this fall patient was brought to the ER. On admission patient had a creatinine of 1.03 and a BUN of 43. He had abdominal pelvis CT done showing a possible uncomplicated acute pancrea titis. Urinary bladder distention with similar appearing diverticula. His AST and ALT were normal, lipase was mildly elevated at 389. Urinalysis was negative for infection. A valproic acid level was 119.4. CT head and cervical spine showed age-related atrophic and chronic small vessel ischemic changes without acute intracranial process. A chest x-ray was negative for acute pulmonary disease. Patient was admitted to the hospital. Patient had indwelling catheter placed and did feel a voiding trial a Vidal catheter was reinserted and patient now with hematuria. Urology was consult and patient has a history of BPH and urinary retention in the past. Patient was started on flomax and second voiding trial was completed which patient had passed and will follow up with urology on DC. Hematuria is improving. He was seen in consultation by psychiatric services recommending to decrease Depakote and patient has been changed to Effexor and prozac discontinued. Recommending to follow up with [facility] on discharge. Discharge was held yesterday due to patient having conflicted feelings about discharge and had reports of anger and mostly this was related to the vidal catheter which has been discontinued and patient has significant improvement in his mood and overall affect and is agreeable and ready for discharge to subacute rehab today. He has no acute complaints. Patient currently denying abdominal pain states this is improved since admission, no nausea no vomiting or diarrhea. He is having normal bowel movements. He is denying any chest pain, no shortness of breath. Currently lungs are clear, S1 S2 auscultated, regular rate and rhythm, abdomen is soft and nontender with normactive bowel movements. Patient is afebrile, heart rate is 68, blood pressure 125/85, 96% on room air. Patient will be discharged to subacute rehab today. Plan of care and update was discussed with patients sister and legal guardian Magda over the phone who has no further questions or concerns and agreeing with discharge planning. See medication reconciliation for list of current medications. Thank you for allowing us to participate in the care of this patient. The impression and plan of care has been dictated by Angelita Worley, Nurse Practitioner as directed. Dr. Hardik MD I have performed a history and physical examination and medical decision making of this patient, discussed the same with the dictator, and agree with the dictators assessment and plan as written, documented as a scribe. Based on total visit time, I have performed more than 50% of this visit. Patient Condition at Discharge: Stable Plan - Discharge Summary Discharge Rx Participant: Yes New Discharge Prescriptions: New Divalproex [Depakote] 1,000 mg PO DAILY #30 tab Divalproex [Depakote] 1,500 mg PO HS tab Venlafaxine HCl ER [Effexor XR] 75 mg PO HS #30 cap Acetaminophen Tab [Tylenol] 650 mg PO Q6HR PRN tab PRN Reason: Mild Pain Or Fever > 100.5 Continue Famotidine [Pepcid] 20 mg PO DAILY Tamsulosin [Flomax] 0.4 mg PO BID Dicyclomine [Bentyl] 10 mg PO Q8H Finasteride [Proscar] 5 mg PO DAILY Ziprasidone [Geodon] 40 mg PO BID Ergocalciferol [Vitamin D2 (1250 Mcg = 63842 Iu)] 1,250 mcg PO FR Loperamide [Imodium] 2 mg PO DAILY PRN PRN Reason: Diarrhea metFORMIN HCL 500 mg PO BID Triamcinolone 0.5% Cream [Kenalog 0.5% Cream] 1 applic TOPICAL BID PRN PRN Reason: skin issues Mirabegron [Myrbetriq] 25 mg PO HS Hydrocortisone Cream [Hydrocortisone 2.5% Cream] 1 applic TOPICAL BID Ketoconazole 2% Cream [Nizoral 2%] 1 applic TOPICAL BID PRN PRN Reason: skin issues lisinopriL [Zestril] 20 mg PO DAILY Discontinued FLUoxetine HCL [PROzac] 40 mg PO DAILY Divalproex Sodium [Depakote] 1,500 mg PO BID Menthol-Zinc Oxide Oint [Calmoseptine Ointment] 1 applic TOPICAL BID PRN PRN Reason: skin issues Discharge Medication List Famotidine [Pepcid] 20 mg PO DAILY 04/28/17 [History] Dicyclomine [Bentyl] 10 mg PO Q8H 04/24/18 [History] Tamsulosin [Flomax] 0.4 mg PO BID 04/24/18 [History] Finasteride [Proscar] 5 mg PO DAILY 04/24/19 [History] Ziprasidone [Geodon] 40 mg PO BID 09/25/20 [History] Mirabegron [Myrbetriq] 25 mg PO HS 01/27/21 [History] Ergocalciferol [Vitamin D2 (1250 Mcg = 42817 Iu)] 1,250 mcg PO FR 03/03/21 [History] Hydrocortisone Cream [Hydrocortisone 2.5% Cream] 1 applic TOPICAL BID 02/25/23 [History] Ketoconazole 2% Cream [Nizoral 2%] 1 applic TOPICAL BID PRN 02/25/23 [History] Loperamide [Imodium] 2 mg PO DAILY PRN 02/25/23 [History] Triamcinolone 0.5% Cream [Kenalog 0.5% Cream] 1 applic TOPICAL BID PRN 02/25/23 [History] lisinopriL [Zestril] 20 mg PO DAILY 02/25/23 [History] metFORMIN HCL 500 mg PO BID 02/25/23 [History] Acetaminophen Tab [Tylenol] 650 mg PO Q6HR PRN tab 03/01/23 [Rx] Divalproex [Depakote] 1,000 mg PO DAILY #30 tab 03/01/23 [Rx] Divalproex [Depakote] 1,500 mg PO HS tab 03/01/23 [Rx] Venlafaxine HCl ER [Effexor XR] 75 mg PO HS #30 cap 03/01/23 [Rx] Follow up Appointment(s)/Referral(s): Corrie Moore MD [Primary Care Provider] - 1-2 days Wound Center,[facility] [NON-STAFF] - 1 Week [facility] [NON-STAFF] - 1 Week Jose Francisco Olivas MD [STAFF PHYSICIAN] - 3 Days Ambulatory/Diagnostic Orders: Basic Metabolic Panel [LAB.AMB] Time Frame: 3 Days, Location: None Selected Complete Blood Count w/diff [LAB.AMB] Location: None Selected Activity/Diet/Wound Care/Special Instructions: Local wound care to continue with Triad cream to pitting and did skin folds of the axilla, sacrum and abdomen follow up at [facility] wound care Voiding trial to be completed tomorrow at either [facility] of subacute rehab follow up with urology in the office. Discharge Disposition: TRANSFER TO SNF/ECF
[2023-03-03 11:51] LABS: Glucose,Whole Blood 90 mg/dL (70-110)
--- NOTE | 2023-03-03 12:45 | P.PN ---
Subjective Progress Note Date: 03/03/23 Principal diagnosis: Psychiatric PRogress note He was seen on the unit briefly today for review of his progress. The nursing staff commented he no longer endorsed any suicidal ideaiton or make any self- harm threatening remarks . He recognized me uon visiting him; session was cut short by his episodic drowsiness. He was fully oriented not confused. He has his sporadic smiles and provdied responses through nodding his head and speaking in a low tone of vocie. He was fully aware that his daughter approved the transfer to the Rehab. Earlier , she noted decline in his functional level and questioned whether he would be a good cnadidate for medical terminologist care or assisted living. I explained to him with improved medical status, he woudl be benefiting from vigorous sub-acute REHAB. it seems that he had NOT engaged regularly with his psychiatric team. With his longstanding history of BIPOLAR disorder, he required more close monitoring to bring about sustained remission. Further adjustment of his psychotropic Rx may have to be deferred until his medical condition has been much improved. He did not ruminate over his medical roblems or management : . Diagnosis: Bipolar disorder improved at [facility] Medical diagnosis Fall He was agreeable with the plan. Affect;some fluctuations shrot of affective lability. No grandiose or paranoid dieation. He was nOT Fixated on any ssuicidal ideation.He became more aware of his surroundings and the medical treatment plan. Objective; He looked somewhat tired but fully aware and responsibive towards the interactions. Affect: constricted range APATHY with no psychosis. Oriented ; insight judgment have improved. Transfer plan: I communciated to the med. staff that he would be ready and safe to be transfered to the subacute Physical rehabilitation. Objective - Vital Signs Vital signs: Vital Signs Temp 98.3 F 03/03/23 07:04 Pulse 81 03/03/23 07:04 Resp 16 03/03/23 07:04 BP 149/77 03/03/23 07:04 Pulse Ox 94 L 03/03/23 07:04 FiO2 Intake & Output 03/02/23 03/03/23 03/03/23 18:59 06:59 18:59 Intake Total 710 Output Total 1125 5 Balance -1125 705 Weight 126 kg 126.9 kg Intake: Oral 710 Output: Urine 1125 Uretheral ([place]) 100 Stool 5 Other: Voiding Method Indwelling Catheter Toilet Toilet # Voids 7 2 # Bowel Movements 5 - Labs CBC & Chem 7: 02/26/23 07:55 02/26/23 07:55 Labs: Abnormal Lab Results - Last 24 Hours (Table) 03/02/23 Range/Units 17:01 POC Glucose (mg/dL) 128 H (70-110) mg/dL Microbiology - Last 24 Hours (Table) 02/25/23 11:34 Blood Culture - Final Blood 02/25/23 11:12 Blood Culture - Final Blood
[2023-03-03 14:52] VITALS: BP 118/79; PULSE 84; RESP 95; TEMP 98
== END 2023-03-03 15:12 ==
LOC: EC 10:36 → INTOOBSV 14:40 → 5NMEDONC 14:40
PROVIDERS: ADMIT Internal Medicine; ATTEND Internal Medicine
DX: K85.90 Acute pancreatitis without necrosis or infection, unspecified (principal); F25.0 Schizoaffective disorder, bipolar type; R62.7 Adult failure to thrive; N40.1 Benign prostatic hyperplasia with lower urinary tract symptoms; N13.8 Other obstructive and reflux uropathy; R33.8 Other retention of urine; R31.0 Gross hematuria; L90.5 Scar conditions and fibrosis of skin; I11.0 Hypertensive heart disease with heart failure; I50.9 Heart failure, unspecified; J44.9 Chronic obstructive pulmonary disease, unspecified; E11.9 Type 2 diabetes mellitus without complications; K21.9 Gastro-esophageal reflux disease without esophagitis; E78.5 Hyperlipidemia, unspecified; G47.33 Obstructive sleep apnea (adult) (pediatric); G43.909 Migraine, unspecified, not intractable, without status migrainosus; G40.909 Epilepsy, unspecified, not intractable, without status epilepticus; I48.91 Unspecified atrial fibrillation; F17.210 Nicotine dependence, cigarettes, uncomplicated; R42 Dizziness and giddiness; Z91.81 History of falling; Z85.89 Personal history of malignant neoplasm of other organs and systems; Z86.73 Personal history of transient ischemic attack (TIA), and cerebral infarction without residual deficits; Z91.51 Personal history of suicidal behavior; Z79.84 Long term (current) use of oral hypoglycemic drugs; Z79.899 Other long term (current) drug therapy; Z88.5 Allergy status to narcotic agent; Z88.6 Allergy status to analgesic agent; Z88.0 Allergy status to penicillin; Z88.2 Allergy status to sulfonamides; Z80.0 Family history of malignant neoplasm of digestive organs; Z80.42 Family history of malignant neoplasm of prostate; N32.89 Other specified disorders of bladder
CPT/HCPCS: 96372 ×2; 96360; 96361; 99285; 51798; 36415; 94760 ×2; 93005; 97530 ×4; 97162; 97166; 80164; 80053; 80048; 83605; 83690; 83735; 84484; 85025 ×2; 85610; 85730; 81001; 87040; 83036; 72170; 71046; 72125; 70450; 74177; G0378 ×7; S0138 ×6

== ENCOUNTER 2023-03-07 01:22 | Emergency (ER) | payer MEDICARE, OTHER ==
[2023-03-07 01:33] VITALS: RESP 18
[2023-03-07] MEDS ORDERED: ACETAMINOPHEN TAB 500 MG TAB PO STA (02:22)
[2023-03-07] MEDS ORDERED: DIPH,PERTUS(ACELL)TETVAC-LF 0.5 ML VIAL IM ONE (03:23)
[2023-03-07] MEDS ORDERED: HYDROmorphone 1 MG/ML 1 ML SYRINGE IM STA (03:41)
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
--- NOTE | 2023-03-07 04:49 | CT ---
EXAM: CT Head Without Intravenous Contrast CLINICAL HISTORY: ITS.REASON CT Reason: fall TECHNIQUE: Axial computed tomography images of the head/brain without intravenous contrast. CTDI is 45.2 mGy and DLP is 1075.5 mGy-cm. This CT exam was performed using one or more of the following dose reduction techniques: automated exposure control, adjustment of the mA and/or kV according to patient size, and/or use of iterative reconstruction technique. COMPARISON: No relevant prior studies available. FINDINGS: Brain: No hemorrhage or mass effect. Ventricles: No hydrocephalus. Bones/joints: Unremarkable. Soft tissues: Unremarkable. Sinuses: No air fluid level. Mastoid air cells: Mild bilateral mastoid effusions. IMPRESSION: No acute hemorrhage, hydrocephalus, or mass effect. EXAM: CT Cervical Spine Without Intravenous Contrast CLINICAL HISTORY: ITS.REASON CT Reason: fall TECHNIQUE: Axial computed tomography images of the cervical spine without intravenous contrast. CTDI is 19.6 mGy and DLP is 535.6 mGy-cm. This CT exam was performed using one or more of the following dose reduction techniques: automated exposure control, adjustment of the mA and/or kV according to patient size, and/or use of iterative reconstruction technique. COMPARISON: No relevant prior studies available. FINDINGS: Vertebrae: No acute fracture. Chronic mild superior endplate wedging of T2. Discs/spinal canal/neural foramina: degenerative changes. Soft tissues: No prevertebral swelling. IMPRESSION: No acute fracture or subluxation.
--- NOTE | 2023-03-07 05:03 | XR ---
EXAM: XR Bilateral Knees, 3 Views CLINICAL HISTORY: [email or web address].[email or web address] XR Reason: fall TECHNIQUE: Three views of the bilateral knees. COMPARISON: No relevant prior studies available. FINDINGS: Bones/joints: No acute fracture. No dislocation. Soft tissues: Unremarkable. IMPRESSION: No acute osseous abnormalities.
--- NOTE | 2023-03-07 07:35 | XR ---
EXAMINATION TYPE: XR thoracic spine 2V DATE OF EXAM: 03/07/2023 COMPARISON: None HISTORY: Chronic back pain, fall TECHNIQUE: 3 view thoracic spine FINDINGS: There are 12 thoracic type vertebral bodies. Pedicles are intact. Spondylosis is present. S ome anterior vertebral body calcification is present. Consider ankylosing spondylitis. Disc heights a re preserved. Vertebral body heights appear preserved. IMPRESSION: 1. No acute osseous abnormality thoracic spine. 2. Consider ankylosing spondylitis.
--- NOTE | 2023-03-07 07:36 | XR ---
EXAMINATION TYPE: XR lumbar spine 2 or 3V DATE OF EXAM: 03/07/2023 COMPARISON: None HISTORY: Fall, pain TECHNIQUE: 3 view lumbar spine FINDINGS: There are 5 lumbar-type ureteral bodies. The pedicles are intact. Disc heights are preserve d. Vertebral body heights are preserved. 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 Sacroiliac joints are patent. IMPRESSION: 1. No acute osseous abnormality lumbar spine
[2023-03-07 09:30] VITALS: BP 134/78; PULSE 77; TEMP 98.4
== END 2023-03-07 09:30 | disposition home or self-care (01) ==
LOC: EC 01:22
DX: S39.012A Strain of muscle, fascia and tendon of lower back, initial encounter (principal); S80.212A Abrasion, left knee, initial encounter; J44.9 Chronic obstructive pulmonary disease, unspecified; E78.5 Hyperlipidemia, unspecified; E11.9 Type 2 diabetes mellitus without complications; K21.9 Gastro-esophageal reflux disease without esophagitis; M19.90 Unspecified osteoarthritis, unspecified site; I11.0 Hypertensive heart disease with heart failure; I50.9 Heart failure, unspecified; F41.9 Anxiety disorder, unspecified; F31.9 Bipolar disorder, unspecified; Z86.73 Personal history of transient ischemic attack (TIA), and cerebral infarction without residual deficits; F17.200 Nicotine dependence, unspecified, uncomplicated; Z88.1 Allergy status to other antibiotic agents; Z80.0 Family history of malignant neoplasm of digestive organs; Z88.0 Allergy status to penicillin; Z88.2 Allergy status to sulfonamides; Z88.8 Allergy status to other drugs, medicaments and biological substances; Z79.84 Long term (current) use of oral hypoglycemic drugs; Z23 Encounter for immunization; W01.0XXA Fall on same level from slipping, tripping and stumbling without subsequent striking against object, initial encounter; Y93.01 Activity, walking, marching and hiking
CPT/HCPCS: 72070; 73560; 72100; 72125; 70450; 90715; 99285; 90471; 96372; J1170